=== PATIENT | female | born 1950 | race Caucasian/White ===

== ENCOUNTER → 2016-02-21 | Outpatient (CLI) | payer OTHER ==
[~2016-02-21] MED LIST: ALBU0.08 INH; ALEN1TAB48 PO; ALEN70TA39 PO; AMOX250S22 PO; AMOX875T PO; ASPI325T PO; ATEN-102 PO; ATOR20TA PO; ATOR20TA15 PO; BACT2OIN TOPICAL; BENT20TA PO; BUPR100CR PO; BUPR150CR PO; BUPR1TAB29 PO; CARB25TA9 PO; CEPH-460 PO; CHOL100025 CHEW; CULT10CA4 PO; CYAN1TAB24 PO; DICY20TA10 PO; DOCU1CAP39 PO; HALO2TAB PO; HYDR25TA5 PO; IPRASOL INH; LACT PO; LAMO100 PO; LAMO100T PO; LAMO200T PO; LEVO.075 PO; LEVO75TA3 PO; LISI10TA3 PO; LORA-392 PO; MACR100C2 PO; MELO-1 PO; MEMA28CA PO; METH500T3 PO; MUPI2OIN TOPICAL; NAME10TA PO; NUED20CA PO; PERC5TAB12 PO; PRED1 PO; PRED10 PO; PREM0.3T2 PO; PROBCAP11; PROM1SUP12 PR; QUET50XR PO; RELP40TA PO; SUMA100T2 PO; SYNT112T PO; VITA100018 PO; VITA10002 PO; VITATAB43 PO; ZOFR4TAB3 SL
[2016-02-21 15:09] LABS: BLOOD GAS BASE EXCESS 3.2 mmol/L (-2-2); BLOOD GAS CARBOXYHEMOGLOBIN 1.5 % (0-4); BLOOD GAS HCO3 27 mmol/L (22-26); BLOOD GAS METHEMOGLOBIN 0.8 % (0-2); BLOOD GAS O2 HGB SATURATION 96 % (90-100); BLOOD GAS OXYGEN CONTENT 21.5 Vol % (12.0-20.0); BLOOD GAS PCO2 42 mmHG (38-42); BLOOD GAS PO2 91 mmHG (61-120); CRITICAL VALUE NO; DRAW SITE LT RADIAL; FIO2 21 %; NUMBER OF ARTERIAL PUNCTURES 1; STAT NO; TEMP CORR TO 98.6; ULNAR PULSE PRESENT
== END ==
LOC: PHRSP 14:44
PROVIDERS: ATTEND Specialist
DX: E84.9 Cystic fibrosis, unspecified (principal); R79.0 Abnormal level of blood mineral; R79.81 Abnormal blood-gas level
CPT/HCPCS: 36600; 82805

== ENCOUNTER 2016-04-06 10:27 | Emergency (ER) | payer OTHER ==
[~2016-04-06] VITALS: Ht 167.6 cm; Wt 53.0 kg
[~2016-04-06 10:27] MED LIST changes: -ALBU0.08 INH; -ALEN1TAB48 PO; -AMOX250S22 PO; -ATOR20TA15 PO; -BACT2OIN TOPICAL; -BUPR150CR PO; -BUPR1TAB29 PO; -CARB25TA9 PO; -CEPH-460 PO; -CHOL100025 CHEW; -CULT10CA4 PO; -CYAN1TAB24 PO; -DICY20TA10 PO; -DOCU1CAP39 PO; -HALO2TAB PO; -HYDR25TA5 PO; -IPRASOL INH; -LACT PO; -LAMO100T PO; -LAMO200T PO; -LEVO.075 PO; -LEVO75TA3 PO; -LISI10TA3 PO; -LORA-392 PO; -MACR100C2 PO; -MELO-1 PO; -MEMA28CA PO; -MUPI2OIN TOPICAL; -NAME10TA PO; -NUED20CA PO; -PRED10 PO; -PROBCAP11; -RELP40TA PO; -SUMA100T2 PO; -VITA100018 PO; -VITA10002 PO; -VITATAB43 PO
[2016-04-06 10:39] VITALS: BP 139/95; PULSE 80; RESP 16; TEMP 97.7; O2SAT 96
[2016-04-06] MEDS ORDERED: ATOR20TA15 PO (11:07)
[2016-04-06] MEDS ORDERED: RELP40TA PO (11:07)
[2016-04-06] MEDS ORDERED: DICY20TA10 PO (11:07)
[2016-04-06] MEDS ORDERED: MEMA28CA PO (11:07)
[2016-04-06] MEDS ORDERED: VITATAB43 PO (11:07)
[2016-04-06] MEDS ORDERED: BUPR1TAB29 PO (11:07)
[2016-04-06] MEDS ORDERED: LAMO100T PO (11:07)
[2016-04-06] MEDS ORDERED: LEVO75TA3 PO (11:07)
[2016-04-06] MEDS ORDERED: MELO-1 PO (11:07)
[2016-04-06] MEDS ORDERED: SUMA100T2 PO (11:07)
[2016-04-06] MEDS ORDERED: CHOL100025 CHEW (11:07)
[2016-04-06] MEDS ORDERED: CARB25TA9 PO (11:07)
[2016-04-06] MEDS ORDERED: HYDR25TA5 PO (11:07)
[2016-04-06] MEDS ORDERED: ALEN1TAB48 PO (11:07)
--- NOTE | 2016-04-06 11:22 | PD ---
HPI Chief Complaint: Fall Time Seen by Provider: 11:06 Travel History International Travel<30 days: No Contact w/Intl Traveler<30days: No Traveled to known affect area: No History of Present Illness HPI The patient was seen and examined in the presence of the nurse. This patient complains of pain in the right hip. She fell on it last night when she actually rolled out of bed. She has Parkinson's and a poor gait in general. Symptoms severity is moderate. No alleviating factors. Duration is 8 hours. No head or neck injury PFSH Past Medical History Bipolar Disorder: Yes High Cholesterol: Yes Dementia: Yes Diminished Hearing: No Hypertension: Yes Thyroid Disease: Yes ?: Not Menopausal: Yes Tubal Ligation: Yes Past Surgical History Surgical History: No Previous Surgery Social History Alcohol Use: Yes (wine wtih dinner) Tobacco Use: No Substance Use: No Allergies-Medications (Allergen,Severity, Reaction): Coded Allergies: Sulfa (Unverified Allergy, Unknown, redness and swelling, 04/06/16) Reported Meds & Prescriptions Reported Meds & Active Scripts Active Reported Vitamin D3 (Cholecalciferol) 1,000 Unit Chew 1,000 Units CHEW DAILY Vitamin F82-Jrooy Acid (Cobalamine Combinations) 500-400 Mcg Tab 3 Tab PO DAILY Atorvastatin (Atorvastatin Calcium) 20 Mg Tab 20 Mg PO HS Bupropion HCl ER 12 HR (Bupropion HCl) 150 Mg Tab 150 Mg PO Q12HR Hydrochlorothiazide 25 Mg Tab 25 Mg PO DAILY Namenda Xr (Memantine) 28 Mg Caper 28 Mg PO DAILY Lamotrigine 100 Mg Tab 100 Mg PO BID Dicyclomine (Dicyclomine HCl) 20 Mg Tab 20 Mg PO TID Relpax (Eletriptan) 40 Mg Tab 40 Mg PO ONCE PRN Meloxicam 15 Mg Tab 15 Mg PO DAILY Carbidopa-Levodopa 25-100 Mg Tab 1 Tab PO Q8HR Sumatriptan (Sumatriptan Succinate) 100 Mg Tab 100 Mg PO ONCE PRN If a satisfactory response has not been obtained at 2 hours, a second dose may be administered Levothyroxine (Levothyroxine Sodium) 75 Mcg Tab 75 Mcg PO DAILY Alendronate (Alendronate Sodium) 70 Mg Tab 70 Mg PO Q7D Review of Systems General / Constitutional: No: Fever Eyes: No: Visual changes HENT: No: Headaches Cardiovascular: No: Chest Pain or Discomfort Respiratory: No: Shortness of Breath Gastrointestinal: No: Abdominal Pain Genitourinary: No: Dysuria Musculoskeletal: Positive: Pain Skin: No Rash Neurologic: Positive: Ataxia, No: Weakness Psychiatric: No: Depression Endocrine: No: Polydipsia Hematologic/Lymphatic: No: Easy Bruising Physical Exam Narrative GENERAL: Well-nourished, well-developed patient in no apparent distress. SKIN: Warm and dry. HEAD: Atraumatic. Normocephalic. EYES: Pupils equal and round. No scleral icterus. No injection or drainage. ENT: No nasal bleeding or discharge. Mucous membranes pink and moist. NECK: Trachea midline. No JVD. CARDIOVASCULAR: Regular rate and rhythm. No murmur appreciated. RESPIRATORY: No accessory muscle use. Clear to auscultation. Breath sounds equal bilaterally. GASTROINTESTINAL: Abdomen soft, non-tender, nondistended. Hepatic and splenic margins not palpable. MUSCULOSKELETAL: No obvious deformities. No clubbing. No cyanosis. No edema. Good range of motion of right hip. No bruising or swelling. Neurovascularly intact right leg NEUROLOGICAL: Awake and alert. No obvious cranial nerve deficits. Motor grossly within normal limits. Normal speech. PSYCHIATRIC: Appropriate mood and affect; insight and judgment normal. Data Data Last Documented VS Vital Signs Date Time Temp Pulse Resp B/P Pulse Ox O2 Delivery O2 Flow Rate FiO2 04/06/16 10:39 97.7 80 16 139/95 96 Orders Hip, Lat Only W Ap Pelvis (04/06/16 ) MDM Medical Decision Making Medical Screen Exam Complete: Yes Emergency Medical Condition: Yes Medical Record Reviewed: Yes Differential Diagnosis Pelvic fracture, contusion, hip dislocation Narrative Course I have reviewed the patient's electronic medical record. I reviewed her pelvis x-ray which is normal I reviewed her right hip x-ray which is normal Patient has contusion of the right side but no objective findings on x-ray or exam Stable for outpatient follow-up Advised her to use her walker and check in with primary care on Friday Diagnosis Primary Impression: Contusion of right hip, initial encounter Additional Instructions: The patient was advised to follow up with their physician and return if they worsen. Use walker Med/Other Pt SpecificInfo: Other Disposition: DISCHARGE HOME Condition: Stable Last Grigsby MD Apr 06, 2016 11:22
--- NOTE | 2016-04-06 12:49 | RADHPO ---
EXAM DATE/TIME: 04/06/2016 11:23 [facility] COMPARISON: No previous studies available for comparison. INDICATIONS : Right hip pain from fall. MEDICAL HISTORY : Dementia. SURGICAL HISTORY : None. ENCOUNTER: Initial ACUITY: 1 day PAIN SCORE: 7/10 LOCATION: anterior right hip. FINDINGS: AP view of the pelvis. Lateral view right hip. Bone alignment within normal limits. No evidence of f racture. CONCLUSION: No evidence of fracture. Sheldon Dey MD on April 06, 2016 at 12:47 Board Certified Radiologist. This report was verified electronically.
[2016-04-06 13:03] VITALS: BP 137/78
== END 2016-04-06 13:17 | disposition home or self-care (01) ==
LOC: PHED 10:27
DX: S70.01XA Contusion of right hip, initial encounter (principal); W06.XXXA Fall from bed, initial encounter
CPT/HCPCS: 73501; 99283

== ENCOUNTER 2016-06-09 19:14 | Emergency (ER) | payer OTHER ==
[~2016-06-09] VITALS: Ht 167.6 cm; Wt 51.0 kg
[~2016-06-09 19:14] MED LIST changes: +ALEN1TAB48 PO; -ALEN70TA39 PO; -AMOX875T PO; -ASPI325T PO; -ATEN-102 PO; -ATOR20TA PO; +ATOR20TA15 PO; -BENT20TA PO; -BUPR100CR PO; +BUPR1TAB29 PO; +CARB25TA9 PO; +CHOL100025 CHEW; +DICY20TA10 PO; +HYDR25TA5 PO; -LAMO100 PO; +LAMO100T PO; +LEVO75TA3 PO; +MELO-1 PO; +MEMA28CA PO; -METH500T3 PO; -PERC5TAB12 PO; -PRED1 PO; -PREM0.3T2 PO; -PROM1SUP12 PR; -QUET50XR PO; +RELP40TA PO; +SUMA100T2 PO; -SYNT112T PO; +VITATAB43 PO; -ZOFR4TAB3 SL
[2016-06-09 19:33] VITALS: BP 142/87; PULSE 77; RESP 18; TEMP 97.7; O2SAT 98
[2016-06-09] MEDS ORDERED: TETANUS/DIPHTHERIA TOXOID ADULT 0.5 ML VIAL IM ONE (20:00)
--- NOTE | 2016-06-09 20:39 | RADHPO ---
EXAM DATE/TIME: 06/09/2016 20:16 [facility] COMPARISON: No previous studies available for comparison. INDICATIONS : Left hand pain, laceration from fall. MEDICAL HISTORY : None. SURGICAL HISTORY : None. ENCOUNTER: Initial ACUITY: 1 day PAIN SCORE: 9/10 LOCATION: Left posterior hand. FINDINGS: No definite fractures, or dislocations are identified. No definite lytic or sclerotic lesion is seen . Slight osteopenia is seen. Slight degenerative arthritis is present within multiple interphalangea l joints. CONCLUSION: Chronic changes and no evidence for acute fracture. Bev Navarro MD on June 09, 2016 at 20:37 Board Certified Radiologist. This report was verified electronically.
--- NOTE | 2016-06-09 20:40 | PD ---
HPI Chief Complaint: Laceration/Skin Injury Time Seen by Provider: 20:34 Travel History International Travel<30 days: No Contact w/Intl Traveler<30days: No Traveled to known affect area: No History of Present Illness HPI 66-year-old female that presents to the ED for evaluation of injury to her left arm. Patient had a mechanical fall about an hour before coming. Patient has a history of dementia and has chronic falls. She did not hit her head or lose consciousness. Fall was witnessed by family member who is here with her. She did suffer a laceration to the dorsal aspect of the hand and has a lot of bruising and swelling in the area. Family were not too concerned except for the laceration as there weren't sure what to do for it. She denies any pain other than on the hand. She takes no blood thinners. No back or neck pain. Ambulatory with no sign of discomfort. She does have a bruise to her left elbow but she is able to the forearm with no sign of acute disease. Patient denies any numbness, tilling, weakness. Pain is 2 out of 10. Unclear if she is up-to-date with her tetanus. Allergies to sulfa. Laceration is to the dorsal aspect of the left hand. PFSH Past Medical History Bipolar Disorder: Yes High Cholesterol: Yes Dementia: Yes Diminished Hearing: No Hypertension: Yes Thyroid Disease: Yes Tetanus Vaccination: Unknown Influenza Vaccination: Yes ?: Not Menopausal: Yes Tubal Ligation: Yes Social History Alcohol Use: Yes (wine wtih dinner) Tobacco Use: No Substance Use: No Allergies-Medications (Allergen,Severity, Reaction): Coded Allergies: Sulfa (Unverified Allergy, Unknown, redness and swelling, 04/06/16) Reported Meds & Prescriptions Reported Meds & Active Scripts Active Reported Vitamin D3 (Cholecalciferol) 1,000 Unit Chew 1,000 Units CHEW DAILY Vitamin Q85-Vwtpd Acid (Cobalamine Combinations) 500-400 Mcg Tab 3 Tab PO DAILY Atorvastatin (Atorvastatin Calcium) 20 Mg Tab 20 Mg PO HS Bupropion HCl ER 12 HR (Bupropion HCl) 150 Mg Tab 150 Mg PO Q12HR Hydrochlorothiazide 25 Mg Tab 25 Mg PO DAILY Namenda Xr (Memantine) 28 Mg Caper 28 Mg PO DAILY Lamotrigine 100 Mg Tab 100 Mg PO BID Dicyclomine (Dicyclomine HCl) 20 Mg Tab 20 Mg PO TID Relpax (Eletriptan) 40 Mg Tab 40 Mg PO ONCE PRN Meloxicam 15 Mg Tab 15 Mg PO DAILY Carbidopa-Levodopa 25-100 Mg Tab 1 Tab PO Q8HR Sumatriptan (Sumatriptan Succinate) 100 Mg Tab 100 Mg PO ONCE PRN If a satisfactory response has not been obtained at 2 hours, a second dose may be administered Levothyroxine (Levothyroxine Sodium) 75 Mcg Tab 75 Mcg PO DAILY Alendronate (Alendronate Sodium) 70 Mg Tab 70 Mg PO Q7D Review of Systems Except as stated in HPI: all other systems reviewed are Neg Physical Exam Narrative GENERAL: SKIN: Warm and dry. HEAD: Atraumatic. Normocephalic. EYES: Pupils equal and round. No scleral icterus. No injection or drainage. ENT: No nasal bleeding or discharge. Mucous membranes pink and moist. Tongue is midline. No uvula deviation. NECK: Trachea midline. No JVD. CARDIOVASCULAR: Regular rate and rhythm. No murmurs, S3, S4. RESPIRATORY: No accessory muscle use. Clear to auscultation. Breath sounds equal bilaterally. GASTROINTESTINAL: Abdomen soft, non-tender, nondistended. Hepatic and splenic margins not palpable. MUSCULOSKELETAL: Extremities without clubbing, cyanosis, or edema. No obvious deformities. No cervical, thoracic, lumbar spine tenderness to palpation. Patient has full range of motion of the upper and lower extremities bilaterally. Patient has full range of motion of the left hand with no obvious deformity other than laceration to the dorsal aspect of the hand. Patient has what appears to be a partial skin avulsion about 5 cm in length. Skin still attached but skin is extremely thin. Minimal bleeding noted. Slightly tender to touch. Good capillary refill. 2+ pulses bilaterally. NEUROLOGICAL: Awake and alert. No obvious cranial nerve deficits. Motor grossly within normal limits. Five out of 5 muscle strength in the arms and legs. Normal speech. PSYCHIATRIC: Appropriate mood and affect; insight and judgment normal. Data Data Last Documented VS Vital Signs Date Time Temp Pulse Resp B/P Pulse Ox O2 Delivery O2 Flow Rate FiO2 06/09/16 19:51 77 18 06/09/16 19:33 97.7 142/87 98 Orders Hand, Complete (Opu5tth) (06/09/16 19:55) Wound Care (06/09/16 19:55) Tetanus/Diphtheria Tox Adult (Tetanus/Di (06/09/16 20:00) MDM Medical Decision Making Medical Screen Exam Complete: Yes Emergency Medical Condition: Yes Medical Record Reviewed: Yes Interpretation(s) X-ray of the left hand show no sign of acute injury. Differential Diagnosis Laceration versus fracture versus bony injury versus contusion Narrative Course 66-year-old female that presents to the ED for evaluation of left hand injury. Patient was properly examined and was found to have signs and symptoms consistent with a skin avulsion. I recommend x-ray and wound care. Family and patient agree. Unfortunately patient's skin is too thin to do stitches. I do recommend wound care with Steri-Strips by altitude chamber technician. Patient is in agreement with this plan. Patient was told to follow to change dressings daily. Patient will be sent home with prescription for Bactroban as well as Keflex to rule out infection. X-ray was negative for acute disease. Patient was reassured. Close follow with PCP. Tylenol or Motrin as needed. Ice. See ED worsening symptoms. Watch for signs of infection was endorsed. Diagnosis Primary Impression: Laceration of left hand Qualified Code: S61.412A - Laceration of left hand without foreign body, initial encounter Additional Impression: Fall Qualified Code: W19.XXXA - Fall, initial encounter Patient Instructions: General Instructions Additional Instructions: Wound care daily with soap and water. You can apply bandaid if needed. Neosporyn or OTC antibiotic ointment to area as needed twice a day for at least 2 weeks to help with scarring and prevent infection. Meoderma OTC for scarring if needed. Avoid sun exposure for 2 months as the sun could make scar darker and more noticeable. Steri-Strips should come off in about a week, keep it them until they fall on their own. Remove if they been there longer than two weeks. See ED if worst. Med/Other Pt SpecificInfo: Prescription(s) given Disposition: 01 DISCHARGE HOME Condition: Stable Ignacio Lane Jun 09, 2016 20:40
[2016-06-09] MEDS ORDERED: CEPH-460 PO (20:41)
[2016-06-09] MEDS ORDERED: BACT2OIN TOPICAL (20:41)
== END 2016-06-09 20:58 | disposition home or self-care (01) ==
LOC: PHEFT 19:14
DX: S61.412A Laceration without foreign body of left hand, initial encounter (principal); F31.9 Bipolar disorder, unspecified; E78.00 Pure hypercholesterolemia, unspecified; F03.90 Unspecified dementia, unspecified severity, without behavioral disturbance, psychotic disturbance, mood disturbance, and anxiety; I10 Essential (primary) hypertension; Z91.81 History of falling; Z23 Encounter for immunization; W18.30XA Fall on same level, unspecified, initial encounter; Y93.9 Activity, unspecified; Y92.9 Unspecified place or not applicable; Y99.9 Unspecified external cause status
CPT/HCPCS: 73130; 90471; 90714

== ENCOUNTER 2016-06-16 14:27 | Emergency (ER) | payer OTHER ==
[~2016-06-16] VITALS: Ht 167.6 cm; Wt 52.0 kg
[~2016-06-16 14:27] MED LIST changes: +BACT2OIN TOPICAL; +CEPH-460 PO
[2016-06-16 14:36] VITALS: BP 110/70; PULSE 89; RESP 17; TEMP 98; O2SAT 100
[2016-06-16] MEDS ORDERED: LORA-392 PO (15:43)
[2016-06-16] MEDS ORDERED: HALO2TAB PO (15:43)
--- NOTE | 2016-06-16 15:48 | PD ---
HPI Chief Complaint: Anxiety Time Seen by Provider: 15:41 Travel History International Travel<30 days: No Contact w/Intl Traveler<30days: No Traveled to known affect area: No History of Present Illness HPI This 66-year-old female is accompanied by her and daughter. She has a history of dementia which has been progressive. The family is trying to get her placed in a locked facility because she has become somewhat agitated recently. She has been wandering at times threatening to walk off. She is not very cooperative at home. She does not always take her medication. She previously had a history of bipolar disorder. She is a patient with Dr. Evangelista. She is not sleeping at night. The family is requesting medication to try to sedate her so he does not wander off. She was here a few days ago for skin tear from fall. She does fall quite often PFSH Past Medical History Alzheimer's Disease: Yes Bipolar Disorder: Yes High Cholesterol: Yes Dementia: Yes Diminished Hearing: No Hypertension: Yes Thyroid Disease: Yes Tetanus Vaccination: < 5 Years Influenza Vaccination: Yes ?: Not Menopausal: Yes Tubal Ligation: Yes Social History Alcohol Use: Yes (wine wtih dinner) Tobacco Use: No Substance Use: No Allergies-Medications (Allergen,Severity, Reaction): Coded Allergies: Sulfa (Unverified Allergy, Unknown, redness and swelling, 06/16/16) Reported Meds & Prescriptions Reported Meds & Active Scripts Active Haloperidol 2 Mg Tab 2 Mg PO BID Ativan (Lorazepam) 0.5 Mg Tab 0.5 Mg PO Q4H PRN Bactroban Topical (Mupirocin) 2% Oint 1 Appl TOPICAL BID 14 Days Reported Vitamin D3 (Cholecalciferol) 1,000 Unit Chew 1,000 Units CHEW DAILY Vitamin Q02-Aamfk Acid (Cobalamine Combinations) 500-400 Mcg Tab 3 Tab PO DAILY Atorvastatin (Atorvastatin Calcium) 20 Mg Tab 20 Mg PO HS Bupropion HCl ER 12 HR (Bupropion HCl) 150 Mg Tab 150 Mg PO Q12HR Hydrochlorothiazide 25 Mg Tab 25 Mg PO DAILY Namenda Xr (Memantine) 28 Mg Caper 28 Mg PO DAILY Lamotrigine 100 Mg Tab 100 Mg PO BID Dicyclomine (Dicyclomine HCl) 20 Mg Tab 20 Mg PO TID Relpax (Eletriptan) 40 Mg Tab 40 Mg PO ONCE PRN Meloxicam 15 Mg Tab 15 Mg PO DAILY Carbidopa-Levodopa 25-100 Mg Tab 1 Tab PO Q8HR Sumatriptan (Sumatriptan Succinate) 100 Mg Tab 100 Mg PO ONCE PRN If a satisfactory response has not been obtained at 2 hours, a second dose may be administered Levothyroxine (Levothyroxine Sodium) 75 Mcg Tab 75 Mcg PO DAILY Alendronate (Alendronate Sodium) 70 Mg Tab 70 Mg PO Q7D Review of Systems General / Constitutional: No: Fever, Chills Cardiovascular: No: Chest Pain or Discomfort Gastrointestinal: No: Vomiting Musculoskeletal: No: Myalgias Physical Exam Narrative GENERAL: Very pleasant lady cooperative at this time SKIN: Focused skin assessment warm/dry. HEAD: Atraumatic. Normocephalic. EYES: Pupils equal and round. No scleral icterus. No injection or drainage. ENT: No nasal bleeding or discharge. Mucous membranes pink and moist. NECK: Trachea midline. No JVD. CARDIOVASCULAR: Regular rate and rhythm. No murmur appreciated. RESPIRATORY: No accessory muscle use. Clear to auscultation. Breath sounds equal bilaterally. MUSCULOSKELETAL: No obvious deformities. No clubbing. No cyanosis. No edema. NEUROLOGICAL: Awake and alert. No obvious cranial nerve deficits. Motor grossly within normal limits. Normal speech. There is a wound on her left hand skin tear on the left elbow which is healing well. She is quite confused Data Data Last Documented VS Vital Signs Date Time Temp Pulse Resp B/P Pulse Ox O2 Delivery O2 Flow Rate FiO2 06/16/16 14:36 98.0 89 17 110/70 100 MDM Medical Decision Making Medical Screen Exam Complete: Yes Emergency Medical Condition: Yes Medical Record Reviewed: Yes Differential Diagnosis Differential includes dementia, dementia with agitation Narrative Course Have discussed possibilities with the and his daughter who were with him. I have explained to them that the response to sedative medications is not predictable. The daughter actually is a nurse practitioner who works with elderly patients and understands this. I have offered to admit the patient to the psychiatric yu but they do not want this at this time and wished to try medications first. Diagnosis Primary Impression: Dementia Scripts Haloperidol 2 Mg Tab2 Mg PO BID #10 TAB Ref 0 Prov:Toni Johnson MD 06/16/16 Lorazepam (Ativan)0.5 Mg Tab0.5 Mg PO Q4H PRN (For mild anxiety / dyspnea) #15 TAB Ref 0 Prov:Toni Johnson MD 06/16/16 Disposition: 01 DISCHARGE HOME Condition: Stable Toni Johnson MD June 16, 2016 15:48
== END 2016-06-16 16:03 | disposition home or self-care (01) ==
LOC: PHED 14:27
DX: G30.9 Alzheimer's disease, unspecified (principal); E78.00 Pure hypercholesterolemia, unspecified; I10 Essential (primary) hypertension
CPT/HCPCS: 99283

== ENCOUNTER 2016-06-18 12:39 | Inpatient (IN) | payer OTHER, MEDICARE ==
[~2016-06-18] VITALS: Ht 167.6 cm; Wt 47.9 kg
[~2016-06-18 12:39] MED LIST changes: -CEPH-460 PO; +HALO2TAB PO; +LORA-392 PO
[2016-06-18 12:41] VITALS: BP 165/82; PULSE 89; RESP 17; TEMP 97.8; O2SAT 98
--- NOTE | 2016-06-18 13:11 | PD ---
HPI Chief Complaint: Medical Clearance Time Seen by Provider: 13:06 Travel History International Travel<30 days: No Contact w/Intl Traveler<30days: No Traveled to known affect area: No History of Present Illness HPI Patient comes in with family requesting placement in assisted living facility secondary to worsening dementia over the past 2 months. Patient family reports that patient has been intermittently compliant with her regular medications, becoming more combative at home, and trying to wander off. Patient was seen at [facility] 2 days ago for same was offered admission to psychiatric yu at that time her family refuses and wanted to try medication first. Medication has not been helping per family history to get primary care doctor to follow-up [id number] performed for placement, but per family patient's primary care doctor refuses this. They tried getting patient's neurologist and was told it was up to the primary care provider. Patient was then brought back to the emergency department for possible admission or assistance in getting the patient placed. Patient denies any complaints or concerns. Denies any chest pain, shortness of breath, vomiting, or fevers. PFSH Past Medical History Alzheimer's Disease: Yes Bipolar Disorder: Yes High Cholesterol: Yes Dementia: Yes Diminished Hearing: No Hypertension: Yes Thyroid Disease: Yes ?: Not Menopausal: Yes Tubal Ligation: Yes Social History Alcohol Use: Yes (wine wtih dinner) Tobacco Use: No Substance Use: No Allergies-Medications (Allergen,Severity, Reaction): Coded Allergies: Sulfa (Unverified Allergy, Unknown, redness and swelling, 06/16/16) Reported Meds & Prescriptions Reported Meds & Active Scripts Active Ativan (Lorazepam) 0.5 Mg Tab 0.5 Mg PO Q4H PRN Bactroban Topical (Mupirocin) 2% Oint 1 Appl TOPICAL BID 14 Days Reported Culturelle (Lactobacillus Rhamnosus (GG)) 10 B Cell Cap 1 Cap PO DAILY Nuedexta 20-10 mg (Dextromethorphan HBr-Quinidine) 1 Cap Cap 1 Cap PO BID B12 (Cyanocobalamin) 1,000 Mcg Tab 1,500 Mcg PO DAILY Lamotrigine 200 Mg Tab 200 Mg PO BID Vitamin D3 (Cholecalciferol) 1,000 Unit Chew 1,000 Units CHEW DAILY Atorvastatin (Atorvastatin Calcium) 20 Mg Tab 20 Mg PO HS Bupropion HCl ER 12 HR (Bupropion HCl) 150 Mg Tab 300 Mg PO DAILY Hydrochlorothiazide 25 Mg Tab 25 Mg PO DAILY Namenda Xr (Memantine) 28 Mg Caper 28 Mg PO DAILY Relpax (Eletriptan) 40 Mg Tab 40 Mg PO ONCE PRN Meloxicam 15 Mg Tab 15 Mg PO DAILY PRN Carbidopa-Levodopa 25-100 Mg Tab 1 Tab PO Q8HR Sumatriptan (Sumatriptan Succinate) 100 Mg Tab 100 Mg PO ONCE PRN If a satisfactory response has not been obtained at 2 hours, a second dose may be administered Levothyroxine (Levothyroxine Sodium) 75 Mcg Tab 75 Mcg PO DAILY Alendronate (Alendronate Sodium) 70 Mg Tab 70 Mg PO Q7D ON MONDAYS Review of Systems Except as stated in HPI: all other systems reviewed are Neg Physical Exam Narrative GENERAL: Well-developed, well nourished, in no acute distress, and non-ill appearing. SKIN: Focused skin assessment warm and dry. HEAD: Atraumatic. Normocephalic. EYES: Pupils equal and round. EOMI. No scleral icterus. No injection or drainage. ENT: No nasal bleeding or discharge. Mucous membranes pink and moist. NECK: Trachea midline. Supple. No nuclear rigidity. CARDIOVASCULAR: Regular rate and rhythm. No murmur appreciated. RESPIRATORY: No accessory muscle use. No respiratory distress. Clear to auscultation. Breath sounds equal bilaterally. GASTROINTESTINAL: Abdomen soft, non-tender, nondistended. Hepatic and splenic margins not palpable. No pulsatile mass. MUSCULOSKELETAL: No obvious deformities. No clubbing. No cyanosis. No edema. Full range of motion. NEUROLOGICAL: Awake and alert. No obvious cranial nerve deficits. Motor grossly within normal limits. Normal speech. Data Data Last Documented VS Vital Signs Date Time Temp Pulse Resp B/P Pulse Ox O2 Delivery O2 Flow Rate FiO2 06/18/16 14:30 98 Room Air 06/18/16 12:41 97.8 89 17 165/82 Orders Basic Metabolic Panel (Bmp) (06/18/16 13:05) Complete Blood Count With Diff (06/18/16 13:05) Urinalysis - C+S If Indicated (06/18/16 13:05) Chest, Single Ap (06/18/16 13:05) Blood Glucose (06/18/16 13:05) Ecg Monitoring (06/18/16 13:05) Iv Access Insert/Monitor (06/18/16 13:05) Oximetry (06/18/16 13:05) Sodium Chloride 0.9% Flush (Ns Flush) (06/18/16 13:15) Urine Culture (06/18/16 14:00) Psych Screen (06/18/16 15:06) Labs Laboratory Tests Test 06/18/16 06/18/16 06/18/16 13:10 14:00 16:55 White Blood Count 7.8 TH/MM3 Red Blood Count 4.91 MIL/MM3 Hemoglobin 14.4 GM/DL Hematocrit 42.9 % Mean Corpuscular Volume 87.5 FL Mean Corpuscular Hemoglobin 29.3 PG Mean Corpuscular Hemoglobin 33.5 % Concent Red Cell Distribution Width 13.7 % Platelet Count 232 TH/MM3 Mean Platelet Volume 9.0 FL Neutrophils (%) (Auto) 77.0 % Lymphocytes (%) (Auto) 16.8 % Monocytes (%) (Auto) 5.3 % Eosinophils (%) (Auto) 0.3 % Basophils (%) (Auto) 0.6 % Neutrophils # (Auto) 6.0 TH/MM3 Lymphocytes # (Auto) 1.3 TH/MM3 Monocytes # (Auto) 0.4 TH/MM3 Eosinophils # (Auto) 0.0 TH/MM3 Basophils # (Auto) 0.0 TH/MM3 CBC Comment DIFF FINAL Differential Comment Urine Color YELLOW Urine Turbidity CLEAR Urine pH 6.5 Urine Specific [place] 1.013 Urine Protein NEG mg/dL Urine Glucose (UA) NEG mg/dL Urine Ketones NEG mg/dL Urine Occult Blood NEG Urine Nitrite NEG Urine Bilirubin NEG Urine Urobilinogen LESS THAN 2.0 MG/DL Urine Leukocyte Esterase NEG Urine RBC LESS THAN 1 /hpf Urine WBC 1 /hpf Urine Squamous Epithelial <1 /hpf Cells Urine Bacteria RARE /hpf Urine Mucus FEW /lpf Microscopic Urinalysis Comment CATH-CULTURE IND Sodium Level 140 MEQ/L Potassium Level 3.7 MEQ/L Chloride Level 105 MEQ/L Carbon Dioxide Level 29.4 MEQ/L Anion Gap 6 MEQ/L Blood Urea Nitrogen 13 MG/DL Creatinine 0.76 MG/DL Estimat Glomerular Filtration 76 ML/MIN Rate Random Glucose 134 MG/DL Calcium Level 9.2 MG/DL [facility] Medical Decision Making Medical Screen Exam Complete: Yes Emergency Medical Condition: Yes Differential Diagnosis Dementia, electrolyte abnormality, pneumonia, UTI, other Narrative Course 1310 discussed patient with case management who is going to look into possible placement of patient if medically cleared. Patient was seen and examined. Labs were obtained and reviewed. Patient medically cleared for further treatment and evaluation by psych. Final disposition per psych. 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
[2016-06-18] MEDS ORDERED: SODIUM CHLORIDE 0.9% FLUSH 10 ML FLUSH IVF PRN (13:15)
[2016-06-18 13:45] LABS: BASOPHIL % 0.6 % (0.0-2.0); EOSINOPHIL % 0.3 % (0.0-4.0); HEMATOCRIT 42.9 % (35.0-46.0); HEMO FLAGS DIFF FINAL; LYMPH % 16.8 % (9.0-44.0); LYMPHOCYTE # 1.3 TH/MM3 (1.0-4.8); MEAN CELL VOLUME 87.5 FL (80.0-100.0); MEAN CORPUSCULAR HEMOGLOBIN 29.3 PG (27.0-34.0); MEAN CORPUSCULAR HGB CONC 33.5 % (32.0-36.0); MONO % 5.3 % (0.0-8.0); PLATELET COUNT 232 TH/MM3 (150-450); RED BLOOD COUNT 4.91 MIL/MM3 (4.00-5.30); RED CELL DISTRIBUTION WIDTH 13.7 % (11.6-17.2); WHITE BLOOD COUNT 7.8 TH/MM3 (4.0-11.0)
--- NOTE | 2016-06-18 13:45 | RADRPT ---
EXAM DATE/TIME: 06/18/2016 13:40 [facility] COMPARISON: No previous studies available for comparison. INDICATIONS : General weakness. MEDICAL HISTORY : Hypertension. SURGICAL HISTORY : None. ENCOUNTER: Initial ACUITY: 1 day PAIN SCORE: 0/10 LOCATION: Bilateral chest FINDINGS: Single AP view of the chest. The lungs are clear. Cardiomediastinal silhouette within normal limits. No evidence of pleural effusion or pneumothorax. CONCLUSION: No acute cardiopulmonary disease identified. Sheldon Dey MD on June 18, 2016 at 13:42 Board Certified Radiologist. This report was verified electronically.
[2016-06-18 14:00] VITALS: BP 135/74; PULSE 98; RESP 16; O2SAT 98
[2016-06-18 14:22] LABS: BACTERIA, URINE RARE /hpf; BLOOD, URINE NEG (NEG); COMMENT (UR) CATH-CULTURE IND; CULTURE IF INDICATED CATH CULTURE IND; GLUCOSE,URINE NEG (NEG); KETONE, URINE NEG (NEG); MUCUS URINE FEW /lpf (OCC); NITRITE,URINE NEG (NEG); PH, URINE 6.5 (5.0-8.5); SQUAMOUS EPITHELIAL CELL URINE <1 /hpf (0-5); URINE COLOR YELLOW (YELLW/STRAW)
[2016-06-18 14:30] VITALS: O2SAT 98
[2016-06-18] MEDS ORDERED: CYAN1TAB24 PO (16:17)
[2016-06-18] MEDS ORDERED: LAMO200T PO (16:17)
[2016-06-18] MEDS ORDERED: PROBCAP11 (16:23)
[2016-06-18] MEDS ORDERED: CULT10CA4 PO (16:23)
[2016-06-18] MEDS ORDERED: NUED20CA PO (16:23)
--- NOTE | 2016-06-18 16:59 | PD ---
History of Present Illness Chief Complaint: Medical Clearance Time Seen by Provider: 15:20 Travel History International Travel<30 Days: No Contact w/Intl Traveler<30days: No Known affected area: No History of Present Illness: History of Present Illness HPI Patient is a 66 year old female with history of dementia and bipolar disorder who is brought to ED by her and her daughter. The who is the primary park recreation manager reports that the patient has had an increase in behaviors over the past 2 weeks. She has been more agitated as well as has been wandering and attempting to get out of the house. Patient was seen at [facility] 2 days ago for same behaviors and concerns and they were offered admission to psychiatric yu at that time but the family refused and wanted to try to continue to care for her at home with medication. They tried the medication Ativan and Haldol which was prescribed at [facility] but this was ineffective.Last night the patient did not sleep, was wandering around the house , told the she will go out the balcony ( they live on a fourth floor) as well as told him that she was looking for a knife. At this time the does not feel safe taking the patient home. The family have secured a placement for her at a local facility but the facility has recommended that she come to [facility] to be stabilized on medication prior to being admitted there. The patient is seen in main ED. Awake and alert. Ambulating around the ed room. She is oriented to her name only. She depends on her as her working memory to answer the questions. She does not appear to be responding to internal stimuli. At this time she is not agitated. She admits to feeling sad over not being able to communicate. In terms of previous hx the reports that she was dx w bipolar disorder approximately 40 years ago and has had previous psychiatric hospitalizations. Past treatmetn w ECT She is currently on Wellbutrin and Lamotrigine.. Family deny any history of substance use. PFSH Past Medical History Alzheimer's Disease: Yes Bipolar Disorder: Yes High Cholesterol: Yes Dementia: Yes Diminished Hearing: No Hypertension: Yes Thyroid Disease: Yes ?: Not Menopausal: Yes Tubal Ligation: Yes Psychiatric History Psychiatric History Hx Psychiatric Treatment: Dx w Bipolar Disorder 40 years ago History of Inpatient Treatment: Yes Guns or firearms in home: No Social History x 46 years. Lives with . retired . Worked in car sales. Hx Alcohol Use: Yes (wine wtih dinner) Hx Tobacco Use: No Hx Substance Use: No Hx of Substance Use Treatment: No Family Psychiatric History unknown Allergies-Medications (Allergen,Severity, Reaction): Coded Allergies: Sulfa (Unverified Allergy, Unknown, redness and swelling, 06/16/16) Reported Meds & Prescriptions Reported Meds & Active Scripts Active Ativan (Lorazepam) 0.5 Mg Tab 0.5 Mg PO Q4H PRN Bactroban Topical (Mupirocin) 2% Oint 1 Appl TOPICAL BID 14 Days Reported Culturelle (Lactobacillus Rhamnosus (GG)) 10 B Cell Cap 1 Cap PO DAILY Nuedexta 20-10 mg (Dextromethorphan HBr-Quinidine) 1 Cap Cap 1 Cap PO BID B12 (Cyanocobalamin) 1,000 Mcg Tab 1,500 Mcg PO DAILY Lamotrigine 200 Mg Tab 200 Mg PO BID Vitamin D3 (Cholecalciferol) 1,000 Unit Chew 1,000 Units CHEW DAILY Atorvastatin (Atorvastatin Calcium) 20 Mg Tab 20 Mg PO HS Bupropion HCl ER 12 HR (Bupropion HCl) 150 Mg Tab 300 Mg PO DAILY Hydrochlorothiazide 25 Mg Tab 25 Mg PO DAILY Namenda Xr (Memantine) 28 Mg Caper 28 Mg PO DAILY Relpax (Eletriptan) 40 Mg Tab 40 Mg PO ONCE PRN Meloxicam 15 Mg Tab 15 Mg PO DAILY PRN Carbidopa-Levodopa 25-100 Mg Tab 1 Tab PO Q8HR Sumatriptan (Sumatriptan Succinate) 100 Mg Tab 100 Mg PO ONCE PRN If a satisfactory response has not been obtained at 2 hours, a second dose may be administered Levothyroxine (Levothyroxine Sodium) 75 Mcg Tab 75 Mcg PO DAILY Alendronate (Alendronate Sodium) 70 Mg Tab 70 Mg PO Q7D ON MONDAYS Review of Systems ROS Limitations: Clinical Condition (dementia) Exam Alert: Yes [place]: Person (only) Mood: Anxious Affect: Appropriate Speech: Clear (Dificulty with word finding.) Eye Contact: Indirect Memory Intact: Comment (impaired) Hallucinations: Other (neagtive) Suicidal: Ideation (negative) Homicidal: Ideation (negative) Insight/Judgement poor. impaired. MDM Medical Decision Making Medical Record Reviewed: Yes Assessment/Plan 66 year old female with hx of bipolar disorder and dementia with increase in behaviors in the past 2 weeks including agitation, wandering, decrease sleep, asking for a knife and threatening to leave the home. The family at this time feel unsafe if she were to be discharged home and have secured a placement for her. However the facility has recommended that she be admitted in order to adjust her medications , decrease the level of agitation and to maintain her safety. The patient will be admitted to [facility] once she is medically cleared. Orders Basic Metabolic Panel (Bmp) (06/18/16 13:05) Complete Blood Count With Diff (06/18/16 13:05) Urinalysis - C+S If Indicated (06/18/16 13:05) Chest, Single Ap (06/18/16 13:05) Blood Glucose (06/18/16 13:05) Ecg Monitoring (06/18/16 13:05) Iv Access Insert/Monitor (06/18/16 13:05) Oximetry (06/18/16 13:05) Sodium Chloride 0.9% Flush (Ns Flush) (06/18/16 13:15) Urine Culture (06/18/16 14:00) Psych Screen (06/18/16 15:06) Results Vital Signs Date Time Temp Pulse Resp B/P Pulse Ox O2 Delivery O2 Flow Rate FiO2 06/18/16 14:30 98 Room Air 06/18/16 12:41 97.8 89 17 165/82 98 Laboratory Tests Test 06/18/16 06/18/16 13:10 14:00 White Blood Count 7.8 Red Blood Count 4.91 Hemoglobin 14.4 Hematocrit 42.9 Mean Corpuscular Volume 87.5 Mean Corpuscular Hemoglobin 29.3 Mean Corpuscular Hemoglobin 33.5 Concent Red Cell Distribution Width 13.7 Platelet Count 232 Mean Platelet Volume 9.0 Neutrophils (%) (Auto) 77.0 Lymphocytes (%) (Auto) 16.8 Monocytes (%) (Auto) 5.3 Eosinophils (%) (Auto) 0.3 Basophils (%) (Auto) 0.6 Neutrophils # (Auto) 6.0 Lymphocytes # (Auto) 1.3 Monocytes # (Auto) 0.4 Eosinophils # (Auto) 0.0 Basophils # (Auto) 0.0 CBC Comment DIFF FINAL Differential Comment Urine Color YELLOW Urine Turbidity CLEAR Urine pH 6.5 Urine Specific [place] 1.013 Urine Protein NEG Urine Glucose (UA) NEG Urine Ketones NEG Urine Occult Blood NEG Urine Nitrite NEG Urine Bilirubin NEG Urine Urobilinogen LESS THAN 2.0 Urine Leukocyte Esterase NEG Urine RBC LESS THAN 1 Urine WBC 1 Urine Squamous Epithelial <1 Cells Urine Bacteria RARE Urine Mucus FEW Microscopic Urinalysis Comment CATH-CULTURE IND Date/Time Procedure Status Source Growth 06/18/16 14:00 Urine Culture Received Urine Catheterized Urine Pending Diagnosis Primary Impression: Dementia Additional Impression: Bipolar disorder Admitting Information Admitting Physician Requests: Admit (Dr. 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
[2016-06-18 17:34] LABS: BICARBONATE 29.4 MEQ/L (21.0-32.0); POTASSIUM 3.7 MEQ/L (3.5-5.1)
[2016-06-18 18:00] VITALS: BP 159/78; PULSE 86; RESP 16; TEMP 98.4; O2SAT 98
[2016-06-18] MEDS ORDERED: ALUMINUM/MAGNESIUM/SIMETH 30 ML CUP PO PRN (19:15)
[2016-06-18] MEDS ORDERED: ACETAMINOPHEN 325 MG TAB PO PRN (19:15)
[2016-06-18] MEDS ORDERED: MAGNESIUM HYDROXIDE SUSP 30 ML CUP PO PRN (19:15)
[2016-06-18 19:20] VITALS: BP 153/94; PULSE 80; RESP 18
[2016-06-19 05:55] VITALS: BP 134/80; PULSE 97; RESP 18; TEMP 98.2
[2016-06-19 08:02] LABS: HDL CHOLESTEROL 78.8 MG/DL (40.0-60.0); LDL CHOLESTEROL 97 MG/DL (0-99)
[2016-06-19 12:42] LABS: HEMOGLOBIN A1b 1.4 %; HEMOGLOBIN Ao 86.7 %; HEMOGLOBIN LA1C 1.9 %; HEMOGLOBIN P3 3.4 %
[2016-06-19] MEDS ORDERED: ALUMINUM/MAGNESIUM/SIMETH 30 ML CUP PO PRN (14:00)
[2016-06-19] MEDS ORDERED: MAGNESIUM HYDROXIDE SUSP 30 ML CUP PO PRN (14:00)
[2016-06-19] MEDS ORDERED: ELETRIPTAN 40 MG PO PRN (14:00)
--- NOTE | 2016-06-19 14:43 | HHI.HP ---
Provisional Diagnosis Admission Date June 18, 2016 at 18:33 [place]. 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 Express and informed consent means consent voluntarily given in writing, by a competent person, after sufficient explanation and disclosure of the subject matter involved to enable the person to make a knowing and willful decision without any element of force, fraud, deceit, duress, or other form of constraint or coercion. This person is 18 years of age or older, is not now known to be incompetent to consent to treatment with a guardian advocate, and does not have a health care surrogate or proxy currently making medical treatment decisions. I have found this person to be one of the following: [] Competent to provide express and informed consent, as defined above, for voluntary admission to this facility and is competent to provide express and informed consent for treatment. He/she has the consistent capacity to make well reasoned, willful, and knowing decisions concerning his or her medical or mental health treatment. The person fully and consistently understands the purpose of the admission for examination/placement and is fully capable of personally exercising all rights assured [place]xx] Incompetent to provide express and informed consent to voluntary admission , and this is incompetent to provide express and informed consent to treatment. The person must be transferred to involuntary status and a petition for a guardian advocate filed with the Circuit Court. [] Refusing to provide express and informed consent to voluntary admission but is competent to provide express and informed consent for treatment. The person must be discharged or transferred to involuntary status. Form shall be completed within 24 hours of a person's arrival at the receiving facility and filed in the clinical record of each person: 1. Admitted on a voluntary basis 2. Permitted to provide express and informed consent to his/her own treatment 3. Allowed to transfer from involuntary to voluntary status 4. Prior to permitting a person to consent to his or her own treatment after having been previously found incompetent to consent to treatment. History of Present Illness Capacity: Lacks Capacity HPI Patient is 66-year-old white female who comes here under [place] act dated June 18, 2016 3:30 signed by Jazmine Hernandez anti-OYSTER TONGER certificate reviewed essentially stating bipolar disorder dementia Alzheimer's wandering looking for a knife to hurt himself refusing medication. Patient is seen screened in the ED. Medically cleared. Of interest patient was seen here also on 06/16 being brought in by her family concerns about her deterioration in behavior related to her significant dementing process. Family at that time declined admission, wanted to try medication. At that time the patient was given given Ativan and Haldol. Family returned to the ED with this visit due to patient's continuing deteriorating behavior. It also appears that her PCP and her neurologist also declined to make appropriate referrals for a possible placement in the secure facility. It appears the family has found a secure facility with the facility requested that the family bring the patient back here for medication stabilization prior to admission to that facility. Patient also has a history of bipolar disorder and seizure disorder. She does see Dr. Evangelista for her seizure disorder. It appears patient's behavior became more severe threatening at home with wandering exits seeking going out onto the balcony of the fourth floor apartment and attempting to get some type of weapon perhaps to harm herself or others to the point where her felt unsafe for himself and that situation. Patient seen in her room with floor staff she is a thin slight slender lady with shortcut fernández hair appears stated age. She is diffusely confused in all 4 spheres does not remember her place level of education. She is vague about whether her parents are alive or though she feels they're alive. It appears she has some minimal insight into the degree of her memory difficulties. She does acknowledge a history of bipolar disorder it appears she has had hospitalizations for that in the past along with ECT treatment in the past. There is no history of seizure disorder being treated by Dr. Evangelista who we will have consult with us. At this time patient does meet criteria for acute involuntary psychiatric hospitalization under the [place] act I'll do first opinion requests second opinion, I feel she does not have capacity, I will ask for healthcare surrogate and guardian advocate. Will have hospitalist consult was along with Dr. Evangelista. We'll of counselor contact patient's to arrange a meeting for tomorrow morning about 11 AM. Continue her medications per med reconciliation though will refrain from any Haldol for benzodiazepine and to a talk with family about medication options Review of Systems Constitutional: DENIES: Diaphoretic episodes, Fatigue, Fever, Weight gain, Weight loss, Chills, Dizziness, Change in appetite, Night Sweats Endocrine: DENIES: Abnorml menstrual pattern, Heat/cold intolerance, Polydipsia , Polyuria, Polyphagia Eyes: DENIES: Blurred vision, Diplopia, Eye inflammation, Eye pain, Vision loss , Photosensitivity, Double Vision Ears, nose, mouth, throat: DENIES: Tinnitus, Hearing loss, Vertigo, Nasal discharge, Oral lesions, Throat pain, Hoarseness, Ear Pain, Running Nose, Epistaxis, Sinus Pain, Toothache, Odynophagia Respiratory: DENIES: Apneas, Cough, Snoring, Wheezing, Hemoptysis, Sputum production, Shortness of breath Cardiovascular: DENIES: Chest pain, Palpitations, Syncope, Dyspnea on Exertion , PND, Lower Extremity Edema, Orthopnea, Claudication Gastrointestinal: DENIES: Abdominal pain, Black stools, Bloody stools, Constipation, Diarrhea, Nausea, Vomiting, Difficulty Swallowing, Anorexia Genitourinary: DENIES: Abnormal vaginal bleeding, Dysmenorrhea, Dyspareunia, Sexual dysfunction, Urinary frequency, Urinary incontinence, Urgency, Hematuria , Dysuria, Nocturia, Vaginal discharge Musculoskeletal: DENIES: Joint pain, Muscle aches, Stiffness, Joint Swelling, Back pain, Neck pain Integumentary: DENIES: Abnormal pigmentation, Pruritus, Rash, Nail changes, Breast masses, Breast skin changes, Nipple discharge Hematologic/lymphatic: DENIES: Bruising, Lymphadenopathy Immunologic/allergic: DENIES: Eczema, Urticaria Neurologic: COMPLAINS OF: Seizures Psychiatric: COMPLAINS OF: Anxiety, Agitation Past Psych History Psychological trauma history unable to ascertain at this time Violence risk - others (6 mos) Patient attempted to get knife the home concern by family Violence risk - self (6 mos) Unknown if suicidal thoughts related to her getting nifedipine her home Substance Abuse History Drugs/Alcohol past 12 months Denies low states occasionally has a glass of wine with dinner Past Family Social History Coded Allergies: Sulfa (Unverified Allergy, Unknown, redness and swelling, 06/16/16) Past Medical History History of seizures Active Scripts Lorazepam (Ativan)0.5 Mg Tab0.5 Mg PO Q4H PRN (For mild anxiety / dyspnea) #15 TAB Ref 0 Prov:Toni Johnson MD 06/16/16 Mupirocin Topical (Bactroban Topical)2% Oint1 Appl TOPICAL BID 14 Days Prov:Toni Johnson MD 06/09/16 Reported Medications Lactobacillus Rhamnosus (GG) (Culturelle)10 B Cell Cap1 Cap PO DAILY Ref 0 06/18/16 Dextromethorphan HBr-Quinidine (Nuedexta 20-10 mg)1 Cap Cap1 Cap PO BID #60 CAP Ref 0 06/18/16 Cyanocobalamin (B12)1,000 Mcg Tab1,500 Mcg PO DAILY 06/18/16 Lamotrigine 200 Mg [id number] Mg PO BID #60 TAB Ref 0 06/18/16 Cholecalciferol (Vitamin D3)1,000 Unit Chew1,000 Units CHEW DAILY #1 BOTTLE Ref 0 04/06/16 Atorvastatin 20 Mg Tab20 Mg PO HS #30 TAB Ref 0 04/06/16 Bupropion HCl ER 12 HR 150 Mg [id number] Mg PO DAILY Ref 0 04/06/16 Hydrochlorothiazide 25 Mg Tab25 Mg PO DAILY #30 TAB Ref 0 04/06/16 Memantine Er (Namenda Xr)28 Mg Caper28 Mg PO DAILY #30 CAP Ref 0 04/06/16 Eletriptan (Relpax)40 Mg Tab40 Mg PO ONCE PRN (MIGRAINE HEADACHE) #6 TAB Ref 0 04/06/16 Meloxicam 15 Mg Tab15 Mg PO DAILY PRN (ARTHRITIS PAIN) #30 TAB Ref 0 04/06/16 Carbidopa-Levodopa 25-100 Mg Tab1 Tab PO Q8HR #90 TAB Ref 0 04/06/16 Sumatriptan 100 Mg [id number] Mg PO ONCE PRN (MIGRAINE HEADACHE) Ref 0 If a satisfactory response has not been obtained at 2 hours, a second dose may be administered 04/06/16 Levothyroxine 75 Mcg Tab75 Mcg PO DAILY #30 TAB Ref 0 04/06/16 Alendronate 70 Mg Tab70 Mg PO Q7D ON MONDAYS #4 TAB Ref 0 04/06/16 Discontinued Reported Medications Cobalamine Combinations (Vitamin V26-Uejvd Acid)500-400 Mcg Tab3 Tab PO DAILY Ref 0 04/06/16 Lamotrigine 100 Mg [id number] Mg PO BID #60 TAB Ref 0 04/06/16 Dicyclomine 20 Mg Tab20 Mg PO TID #90 TAB Ref 0 04/06/16 Discontinued Scripts Haloperidol 2 Mg Tab2 Mg PO BID #10 TAB Ref 0 Prov:Toni Johnson MD 06/16/16 Cephalexin (Keflex)500 Mg [id number] Mg PO Q6H 5 Days Prov:Toni Johnson MD 06/09/16 Current Medications Medications (Trade) Dose Ordered Sig/Aisha Route Start Time Stop Time Status Last Admin (NS Flush) 2 ml UNSCH PRN IVF 06/18/16 13:15 (Tylenol) 650 mg Q4H PRN PO 06/18/16 19:15 (Milk Of Magnesia Liq) 30 ml DAILY PRN PO 06/18/16 19:15 (Mag-Al Plus Susp Liq) 30 ml Q6H PRN PO 06/18/16 19:15 (Benadryl) 50 mg HS PRN PO 06/19/16 14:00 UNV (Tylenol) 650 mg Q4H PRN PO 06/19/16 14:00 UNV (Milk Of Magnesia Liq) 30 ml DAILY PRN PO 06/19/16 14:00 UNV (Mag-Al Plus Susp Liq) 30 ml Q6H PRN PO 06/19/16 14:00 UNV (Atarax) 50 mg Q6H PRN PO 06/19/16 14:00 UNV (Lipitor) 20 mg HS PO 06/19/16 21:00 UNV (Wellbutrin Sr) 300 mg DAILY PO 06/20/16 09:00 UNV (Sinemet 25-100 Mg) 1 tab Q8HR PO 06/19/16 14:00 UNV (Vitamin D3) 1,000 units DAILY PO 06/20/16 09:00 UNV (Hydrodiuril) 25 mg DAILY PO 06/20/16 09:00 UNV (LaMICtal) 200 mg BID PO 06/19/16 21:00 UNV (Synthroid) 75 mcg DAILY PO 06/20/16 09:00 UNV (Mobic) 15 mg DAILY PRN PO 06/19/16 14:00 UNV (Bactroban 2% Oint) 1 applic BID TOPICAL 06/19/16 21:00 UNV (Imitrex) 100 mg ONCE PRN PO 06/19/16 14:00 UNV Non-Formulary Medication 1,500 mcg DAILY PO 06/20/16 09:00 UNV Non-Formulary Medication 1 cap BID PO 06/19/16 21:00 UNV Non-Formulary Medication 40 mg ONCE PRN PO 06/19/16 14:00 UNV Non-Formulary Medication 1 cap DAILY PO 06/20/16 09:00 UNV Non-Formulary Medication 28 mg DAILY PO 06/20/16 09:00 UNV Family History Unknown at this time Social History Patient lives with Patient's Strengths (min. 2) Patient verbal irritable access healthcare has supportive family Physical Exam Patient seen screened in ED exam reviewed and agreed with vital signs blood pressure 134/80 pulse 97 respirations 18 Vital Signs Vital Signs Date Time Temp Pulse Resp B/P Pulse Ox O2 Delivery O2 Flow Rate FiO2 06/19/16 05:55 98.2 97 18 134/80 06/18/16 18:00 98 Room Air I/O 06/18/16 06/18/16 06/19/16 08:00 16:00 00:00 Intake Total 360 ml Balance 360 ml Mental Status Examination Alert diffusely confused all 4 spheres white female appears stated age thin slender slightly disheveled in appearance with fair eye contact sitting with a somewhat anxious guarded attitude Appearance Slightly disheveled Speech: Hesitant, Circumstantial, Tangential Orientation: Person (vaguely) Memory: Impaired (describe) Thought Process: Circumstantial, Loose Association Thought Content: Other (disorganized) Language [employer] Knowledge Poor Hallucination Type: None Attention and Concentration: Easily Distracted Suicidal Ideation: No (denies) Previous Suicide Attempts: No (denies) Homicidal Ideation: No (denies though appears to been searching for weapons in the home) Previous Homicide Attempts: No (denies) Insight: Poor Judgment: Poor Affect: Other (slight increase range and intensity) Mood: Euthymic, Anxious Motor Activity: Normal gait (to somewhat unstable will have PT assess) Assessment & Plan Problem List: (1) Dementia ICD Code: F03.90 (2) Bipolar disorder ICD Code: F31.9 Assessment & Plan Estimated LOS: 5-7 days patient does meet criteria for involuntary psychiatric hospitalization of the [place] act. I will do first opinion request second opinion. However she does not have capacity thus I'll ask for healthcare surrogate and guardian advocate. We will have hospitalist consult will less and have neurology, Dr. Evangelista, consult also. 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
[2016-06-19] MEDS ORDERED: SUMAtriptan SUCCINATE 50 MG TAB PO PRN (16:00)
--- NOTE | 2016-06-19 16:03 | PD.CONS ---
HPI Service [facility] Hospitalists Consult Requested By psych service Reason for Consult medical management Primary Care Physician Non-Staff Diagnoses: History of Present Illness Patient is a 66 yo female with PMH of HTN, HLD, dementia, Bipolar disorder, Parkinson, Hyperlipidemia, who came to the ED with family requesting placement in assisted living facility secondary to worsening dementia over the past 2 months. History is obtained from patient partially and form records. Patient family reported that patient has been intermittently compliant with her regular medications, becoming more combative at home, and trying to wander off. Patient was seen at [place] [facility] 2 days ago for same was offered admission to psychiatric yu at that time her family refuses and wanted to try medication first. Medication has not been helping per family history to get primary care doctor to follow-up [id number] performed for placement, but per family patient's primary care doctor refuses this. They tried getting patient's neurologist and was told it was up to the primary care provider. Patient was then brought back to the emergency department for possible admission or assistance in getting the patient placed. Denies cp, sob, n/v/d/c. Normal BM. No urinary complaints. No fever or chills. Patient denies any complaints or concerns. Denies any chest pain, shortness of breath, vomiting, or fevers. The patient is pleasantly confused, with flights of idea. She is ambulating in the hallway without problems. Says she deosn't have any pain, No sob, cp, n/v/d/c. Says she is not eating much but she is not a big eater anyway. Her BMI is 18.5. Says she has been skinny all her life. Otherwise no complaints. Review of Systems ROS Limitations: Psychotic, Poor Historian Except as stated in HPI: all other systems reviewed are Neg Past Family Social History Allergies: Coded Allergies: Sulfa (Unverified Allergy, Unknown, redness and swelling, 06/16/16) Past Medical History HTN, HLD, Parkinson, hypothyroidism, dementia, Bipolar disorder Past Surgical History partial hysterectomy Reported Medications Last Impressions Chest X-Ray 06/18/16 1305 Signed Impressions: Service Date/Time: Saturday, June 18, 2016 13:40 - CONCLUSION: No acute cardiopulmonary disease identified. Sheldon Dey MD Family History Says diabetes run in her family (mother and grandmother) Social History Denies EtOH use, tobacco use or illicit drug use. Physical Exam Vital Signs Vital Signs Date Time Temp Pulse Resp B/P Pulse Ox O2 Delivery O2 Flow Rate FiO2 06/19/16 05:55 98.2 97 18 134/80 06/18/16 19:20 80 18 153/94 06/18/16 18:00 98.4 86 16 159/78 98 Room Air Physical Exam GENERAL: This is a pleasant skinny 66 yo female, well-nourished, well-developed patient, in no apparent distress. Preoccupied, with flight of ideas, very hard to focus on conversation, following commands. SKIN: No rashes, ecchymoses or lesions. Cool and dry. HEAD: Atraumatic. Normocephalic. No temporal or scalp tenderness. EYES: Pupils equal round and reactive. Extraocular motions intact. No scleral icterus. No injection or drainage. ENT: Nose without bleeding, purulent drainage or septal hematoma. Throat without erythema, tonsillar hypertrophy or exudate. Uvula midline. Airway patent. NECK: Trachea midline. No JVD or lymphadenopathy. Supple, nontender, no meningeal signs. CARDIOVASCULAR: Regular rate and rhythm without murmurs, gallops, or rubs. RESPIRATORY: Clear to auscultation. Breath sounds equal bilaterally. No wheezes , rales, or rhonchi. GASTROINTESTINAL: Abdomen soft, non-tender, nondistended. No hepato-splenomegaly , or palpable masses. No guarding. MUSCULOSKELETAL: Muscle waisting. Extremities without clubbing, cyanosis, or edema. No joint tenderness, effusion, or edema noted. No calf tenderness. Negative Homans sign bilaterally. NEUROLOGICAL: Awake and alert.Cranial nerves II through XII intact. Motor and sensory grossly within normal limits. Five out of 5 muscle strength in all muscle groups. Normal speech. Laboratory Laboratory Tests Test 06/18/16 06/19/16 16:55 05:50 Sodium Level 140 Potassium Level 3.7 Chloride Level 105 Carbon Dioxide Level 29.4 Anion Gap 6 Blood Urea Nitrogen 13 Creatinine 0.76 Estimat Glomerular Filtration 76 Rate Random Glucose 134 Calcium Level 9.2 Hemoglobin A1c 5.2 Triglycerides Level 80 Cholesterol Level 192 LDL Cholesterol 97 HDL Cholesterol 78.8 Cholesterol/HDL Ratio 2.43 Date/Time Procedure Status Source Growth 06/18/16 14:00 Urine Culture - Preliminary Resulted Urine Catheterized Urine Gram Negative Marco Result Diagram: 06/18/16 1310 06/18/16 1655 Imaging Last Impressions Chest X-Ray 06/18/16 1305 Signed Impressions: Service Date/Time: Saturday, June 18, 2016 13:40 - CONCLUSION: No acute cardiopulmonary disease identified. Sheldon Dey MD Assessment and Plan Assessment and Plan Pleasant 66 yo F with PMH of HTN, HLD, dementia, Bipolar disorder Demential Bipolar disorder. management per psychiatry HTN: restart home meds. Monitor BP and adjust as need. HLD continue home meds. Atorvastatin 20 Mg PO HS Bupropion HCl ER 12 HR (Bupropion HCl) 150 Mg Tab 300 Mg PO DAILY Hydrochlorothiazide 25 Mg Tab 25 Mg PO DAILY Parkinson disease: continue Carbidopa-Levodopa 25-100 Mg Tab 1 Tab PO Q8HR. Consult neurology . Hypothyroidism: continue Levothyroxine 75 Mcg PO DAILY Protein calorie malnutrition, mild, BMI is 18.5, muscle waisting. Add ensure to diet. Dietary consult. Will check prealbumin DVT ppx patient is ambulating Discussed Condition With patient, nurse Kisha Cotton MD June 19, 2016 16:02
[2016-06-19] MEDS ORDERED: PILL SPLITTER OTHER PRN (16:15)
[2016-06-19 17:17] VITALS: BP 110/62; PULSE 119; RESP 18; TEMP 97.7
--- NOTE | 2016-06-19 20:30 | MB ---
cc: TENZIN WHEELER M.D. DATE OF CONSULTATION 06/19/2016 HISTORY She is a 66-year-old woman seen in neurological consultation in regards to confusion. It appears that she is a patient of my partner Dr. Evangelista and she follows for seizure disorder and bipolar disorder as well as dementia. Because of her recent threatening behavior she was brought to the hospital. The patient is in the psychiatric unit. I spoke to the nursing staff. I reviewed the HPI. The patient is unable to provide any history whatsoever. MEDICATIONS Her reported medications include: 1. Namenda XR 28 mg. 2. Lamotrigine 200 mg twice a day. 3. She may have been on Carbidopa levodopa. 4. She takes migraine medications. 5. As well as bupropion apparently 150 mg twice a day. 6. She is on a statin. PHYSICAL EXAMINATION GENERAL: On exam the patient is awake, smiles and she did greet me but she is evidently quite confused, has no insight whatsoever. Has no orientation to place, to date, does not know her age. She answered that she lived with her father and mother and when I questioned about the she describes that she has a very sweet but she did not know about children. She has difficulty following any two-step commands. With assistance she followed some simple commands. She was fairly calm, cooperative, ambulated with my assistance. Gait is mildly broad based. There is no tremor. No spasticity though she is a bit rigid. She was able to count fingers in both right and left visual field. There is no facial asymmetry. She seems to have basic comprehension. LABORATORY DATA Ancillary data, CBC is normal. Chemistry with essentially normal findings except for glucose of 134 which was a random blood sugar. Urinalysis negative mostly. Some rare bacteria noted. IMAGING Chest x-ray no acute cardiopulmonary findings. ASSESSMENT Dementia with psychosis. Reportedly the patient was a threat to herself as she was wandering, going out to a balcony on the fourth floor apartment and attempting to get some type of weapon perhaps to harm herself or others. There is a history of seizure disorder. I should be able to look at some of Dr. Evangelista's records. We will review this information. I do not think seizures is an ongoing issue. This appears to be primarily a dementing illness with associated psychosis. She has been placed on carbidopa / levodopa. At this point I do not see Parkinsonian type of syndrome. The Lamictal is in order and the dose is 200 mg twice a day. Evidently sedatives and antipsychotics should be used only if absolutely necessary. Thank you for asking us to assist in her care. MD YE Bran/KK /4:49 PM /8:07 PM
[2016-06-19] MEDS: CARBIDOPA/LEVODOPA 25 MG/100 MG TAB PO SCH (21:04)
[2016-06-19] MEDS: lamoTRIgine 100 MG TAB PO SCH (21:04)
[2016-06-19] MEDS: ATORVASTATIN 20 MG TAB PO SCH (21:04)
[2016-06-19 21:08] VITALS: PULSE 84
[2016-06-19] MEDS: hydrOXYzine HCL 50 MG TAB PO PRN (21:14)
[2016-06-19] MEDS: diphenhydrAMINE HCL 50 MG CAP PO PRN (21:14)
[2016-06-19] MEDS: ACETAMINOPHEN 325 MG TAB PO PRN (21:15)
[2016-06-19] MEDS: MUPIROCIN 2% OINT 22 GM TUBE TOPICAL SCH (23:04)
[2016-06-20 05:33] VITALS: BP 159/72; PULSE 69; RESP 18; TEMP 97.4
[2016-06-20 06:00] VITALS: BP 159/72; PULSE 69; RESP 18; TEMP 97.4; O2SAT 96
[2016-06-20] MEDS: CARBIDOPA/LEVODOPA 25 MG/100 MG TAB PO SCH ×3 (06:27→21:58)
[2016-06-20] MEDS: LEVOTHYROXINE SODIUM 75 MCG TAB PO SCH (06:27)
[2016-06-20] MEDS: MUPIROCIN 2% OINT 22 GM TUBE TOPICAL SCH ×2 (09:00→21:00)
[2016-06-20] MEDS ORDERED: MELOXICAM 15 MG TAB PO PRN (09:00)
[2016-06-20] MEDS: LACTOBACILLUS ACIDOPHILUS TAB PO SCH (09:00)
[2016-06-20] MEDS: CHOLECALCIFEROL (VIT D3) 1000 UNIT TAB PO SCH (09:00)
[2016-06-20] MEDS: buPROPion HCL 150 MG SUSTAINED RELEASE TAB PO SCH (09:00)
[2016-06-20] MEDS: lamoTRIgine 100 MG TAB PO SCH ×2 (09:01→21:58)
[2016-06-20] MEDS: HYDROCHLOROTHIAZIDE 25 MG TAB PO SCH (09:01)
[2016-06-20] MEDS: CYANOCOBALAMIN 1,000 MCG TAB PO SCH (09:01)
--- NOTE | 2016-06-20 10:37 | PD.CONS ---
Provisional Diagnosis Admission Date June 18, 2016 at 18:33 Hartley I. 1. Dementia of the Alzheimer's type with early onset and behavioral disturbance 2. History of bipolar disorder Hartley II. Deferred Hartley V. GAF is 30 presently History of Present Illness Service Psychiatry Consult Requested By Dr. Patrick Reason for Consult Second opinion for involuntary psychiatric hospitalization Primary Care Physician Non-Staff HPI From Dr. Patrick's H&P: Patient is 66-year-old white female who comes here under [place] act dated June 18, 2016 3:30 signed by Jazmine Hernandez anti-RAG INSPECTOR certificate reviewed essentially stating bipolar disorder dementia Alzheimer's wandering looking for a knife to hurt himself refusing medication. Patient is seen screened in the ED. Medically cleared. Of interest patient was seen here also on 06/16 being brought in by her family concerns about her deterioration in behavior related to her significant dementing process. Family at that time declined admission, wanted to try medication. At that time the patient was given given Ativan and Haldol. Family returned to the ED with this visit due to patient's continuing deteriorating behavior. It also appears that her PCP and her neurologist also declined to make appropriate referrals for a possible placement in the secure facility. It appears the family has found a secure facility with the facility requested that the family bring the patient back here for medication stabilization prior to admission to that facility. Patient also has a history of bipolar disorder and seizure disorder. She does see Dr. Evangelista for her seizure disorder. It appears patient's behavior became more severe threatening at home with wandering exits seeking going out onto the balcony of the fourth floor apartment and attempting to get some type of weapon perhaps to harm herself or others to the point where her felt unsafe for himself and that situation. Patient seen in her room with floor staff she is a thin slight slender lady with shortcut fernández hair appears stated age. She is diffusely confused in all 4 spheres does not remember her place level of education. She is vague about whether her parents are alive or though she feels they're alive. It appears she has some minimal insight into the degree of her memory difficulties. She does acknowledge a history of bipolar disorder it appears she has had hospitalizations for that in the past along with ECT treatment in the past. There is no history of seizure disorder being treated by Dr. Evangelista who we will have consult with us. At this time patient does meet criteria for acute involuntary psychiatric hospitalization under the [place] act I'll do first opinion requests second opinion, I feel she does not have capacity, I will ask for healthcare surrogate and guardian advocate. Will have hospitalist consult was along with Dr. Evangelista. We'll of counselor contact patient's to arrange a meeting for tomorrow morning about 11 AM. Continue her medications per med reconciliation though will refrain from any Haldol for benzodiazepine and to a talk with family about medication options On my examination today: Patient seen and examined. Chart reviewed. Case discussed with nursing staff. On my examination today, the patient presents as quite confused. See full mental status testing below. She is presently calm and affect is generally euthymic. She tells me "my brother is a flori person." She denies any suicidal or homicidal ideation. She denies any audiovisual hallucinations. Psychiatric interview was quite limited because of the patient's degree of cognitive impairment Past psychiatric history: Patient is likely an unreliable historian. She does describe a history of psychiatric admissions but cannot recall where or when. She denies any history of suicide attempts. Family history: Patient denies any family history of mental illness. Chemical dependency history: Patient denies any abuse of drugs or alcohol. Social history: Patient does recall that she is and has 2 children. 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 She denies any or legal history. Review of Systems ROS Limitations: Poor Historian Except as stated in HPI: all other systems reviewed are Neg Past Family Social History Coded Allergies: Sulfa (Unverified Allergy, Unknown, redness and swelling, 06/16/16) Past Medical History See electronic medical record Active Scripts Lorazepam (Ativan)0.5 Mg Tab0.5 Mg PO Q4H PRN (For mild anxiety / dyspnea) #15 TAB Ref 0 Prov:Toni Johnson MD 06/16/16 Mupirocin Topical (Bactroban Topical)2% Oint1 Appl TOPICAL BID 14 Days Prov:Toni Johnson MD 06/09/16 Reported Medications Lactobacillus Rhamnosus (GG) (Culturelle)10 B Cell Cap1 Cap PO DAILY Ref 0 06/18/16 Dextromethorphan HBr-Quinidine (Nuedexta 20-10 mg)1 Cap Cap1 Cap PO BID #60 CAP Ref 0 06/18/16 Cyanocobalamin (B12)1,000 Mcg Tab1,500 Mcg PO DAILY 06/18/16 Lamotrigine 200 Mg [id number] Mg PO BID #60 TAB Ref 0 06/18/16 Cholecalciferol (Vitamin D3)1,000 Unit Chew1,000 Units CHEW DAILY #1 BOTTLE Ref 0 04/06/16 Atorvastatin 20 Mg Tab20 Mg PO HS #30 TAB Ref 0 04/06/16 Bupropion HCl ER 12 HR 150 Mg [id number] Mg PO DAILY Ref 0 04/06/16 Hydrochlorothiazide 25 Mg Tab25 Mg PO DAILY #30 TAB Ref 0 04/06/16 Memantine Er (Namenda Xr)28 Mg Caper28 Mg PO DAILY #30 CAP Ref 0 04/06/16 Eletriptan (Relpax)40 Mg Tab40 Mg PO ONCE PRN (MIGRAINE HEADACHE) #6 TAB Ref 0 04/06/16 Meloxicam 15 Mg Tab15 Mg PO DAILY PRN (ARTHRITIS PAIN) #30 TAB Ref 0 04/06/16 Carbidopa-Levodopa 25-100 Mg Tab1 Tab PO Q8HR #90 TAB Ref 0 04/06/16 Sumatriptan 100 Mg [id number] Mg PO ONCE PRN (MIGRAINE HEADACHE) Ref 0 If a satisfactory response has not been obtained at 2 hours, a second dose may be administered 04/06/16 Levothyroxine 75 Mcg Tab75 Mcg PO DAILY #30 TAB Ref 0 04/06/16 Alendronate 70 Mg Tab70 Mg PO Q7D ON MONDAYS #4 TAB Ref 0 04/06/16 Discontinued Reported Medications Cobalamine Combinations (Vitamin F15-Ichsl Acid)500-400 Mcg Tab3 Tab PO DAILY Ref 0 04/06/16 Lamotrigine 100 Mg Aik205 Mg PO BID #60 TAB Ref 0 04/06/16 Dicyclomine 20 Mg Tab20 Mg PO TID #90 TAB Ref 0 04/06/16 Discontinued Scripts Haloperidol 2 Mg Tab2 Mg PO BID #10 TAB Ref 0 Prov:Toni Johnson MD 06/16/16 Cephalexin (Keflex)500 Mg [id number] Mg PO Q6H 5 Days Prov:Toni Johnson MD 06/09/16 Current Medications Medications (Trade) Dose Ordered Sig/Aisha Route Start Time Stop Time Status Last Admin (NS Flush) 2 ml UNSCH PRN IVF 06/18/16 13:15 (Benadryl) 50 mg HS PRN PO 06/19/16 21:00 06/19/16 21:14 (Tylenol) 650 mg Q4H PRN PO 06/19/16 14:00 06/19/16 21:15 (Milk Of Magnesia Liq) 30 ml DAILY PRN PO 06/19/16 14:00 (Mag-Al Plus Susp Liq) 30 ml Q6H PRN PO 06/19/16 14:00 (Atarax) 50 mg Q6H PRN PO 06/19/16 16:00 06/19/16 21:14 (Lipitor) 20 mg HS PO 06/19/16 21:00 06/19/16 21:04 (Wellbutrin Sr) 300 mg DAILY PO 06/20/16 09:00 06/20/16 09:00 (Sinemet 25-100 Mg) 1 tab Q8HR PO 06/19/16 22:00 06/20/16 06:27 (Vitamin D3) 1,000 units DAILY PO 06/20/16 09:00 06/20/16 09:00 (Hydrodiuril) 25 mg DAILY PO 06/20/16 09:00 06/20/16 09:01 (LaMICtal) 200 mg BID PO 06/19/16 21:00 06/20/16 09:01 (Synthroid) 75 mcg DAILY@0600 PO 06/20/16 06:00 06/20/16 06:27 (Mobic) 15 mg DAILY PRN PO 06/20/16 09:00 (Bactroban 2% Oint) 1 applic BID TOPICAL 06/19/16 21:00 06/20/16 09:00 (Vitamin B12) 1,500 mcg DAILY PO 06/20/16 09:00 06/20/16 09:01 Non-Formulary Medication 1 cap BID PO 06/19/16 21:00 Hold (Lactinex) 1 tab DAILY PO 06/20/16 09:00 06/20/16 09:00 Non-Formulary Medication 28 mg DAILY PO 06/20/16 09:00 Hold (Pill Splitter) 1 ea UNSCH PRN OTHER 06/19/16 16:15 Family History See above Social History See above Patient's Strengths (min. 2) In a monitored setting. Verbally fluent. Physical Exam Physical examination completed by hospitalist packaging sales consultant. On my examination today, patient appears to be in no acute physical distress. No motor abnormalities noted. Laboratories and vital signs reviewed: Vital Signs Vital Signs Date Time Temp Pulse Resp B/P Pulse Ox O2 Delivery O2 Flow Rate FiO2 06/20/16 06:00 97.4 69 18 159/72 96 06/18/16 18:00 Room Air I/O 06/19/16 06/19/16 06/20/16 08:00 16:00 00:00 Intake Total 360 ml 720 ml Balance 360 ml 720 ml Lab Results Item Value Date Time White Blood Count 7.8 TH/MM3 06/18/16 1310 Hemoglobin 14.4 GM/DL 06/18/16 1310 Platelet Count 232 TH/MM3 06/18/16 1310 Sodium Level 140 MEQ/L 06/18/16 1655 Potassium Level 3.7 MEQ/L 06/18/16 1655 Chloride Level 105 MEQ/L 06/18/16 1655 Carbon Dioxide Level 29.4 MEQ/L 06/18/16 1655 Blood Urea Nitrogen 13 MG/DL 06/18/16 1655 Creatinine 0.76 MG/DL 06/18/16 1655 Hemoglobin A1c 5.2 % 06/19/16 0550 Thyroid Stimulating Hormone 3rd Gen 3.180 uIU/ML 06/19/16 0550 Prealbumin 26 MG/DL 06/19/16 0550 Mental Status Examination Patient is in hospital gown. She is fairly well groomed. She is awake and alert and oriented to person only. Her registration is 1 out of 3 and her recall is 0 out of 3 at 3 minutes. She is able to name one of 2 items. She is unable to spell the word world backward or forward. She is unable to repeat a phrase. No motor abnormalities noted. Speech is within normal limits for rate , tone and volume although word finding difficulties or noted. Language and fund of knowledge seems reduced for age. Mood is fair and affect is euthymic. Thought process somewhat disorganized consistent with dementia diagnosis. No samra delusions. No audiovisual hallucinations. Denies suicidal or homicidal ideation but is unreliable to contract for safety in her present state. Insight and judgment are poor. Assessment & Plan Problem List: (1) Dementia ICD Code: F03.90 Assessment & Plan Given the circumstances of the patient's presentation here and her presentation on my examination today, I concur with Dr. Patrick that the patient meets criteria for involuntary psychiatric hospitalization under the [place] act. I completed the second opinion paperwork. Further care as per Dr. Patrick. Thank you very much for this consultation. Signing off. Request HC Surrog/Guard Advoc?: Yes Problem Qualifiers (1) Dementia: Qualified Code: G30.0 - Early onset Alzheimer's disease with behavioral disturbance Ty Bowen MD June 20, 2016 10:37
--- NOTE | 2016-06-20 13:01 | HHI.PR ---
Subjective Remarks Patient in nad, she is eating. Says she can walk without any problems. She is smiling. Says she has tremors but not much than usual. Very pleasant, having problems focusing on conversation. She denies chest pain, sob, n/v/d/c. No fever or chills. Objective Vitals Vital Signs Date Time Temp Pulse Resp B/P Pulse Ox O2 Delivery O2 Flow Rate FiO2 06/20/16 06:00 97.4 69 18 159/72 96 06/20/16 05:33 97.4 69 18 159/72 06/19/16 21:08 84 06/19/16 17:17 97.7 119 18 110/62 I/O 06/19/16 06/19/16 06/19/16 06/20/16 06/20/16 06/20/16 07:00 15:00 23:00 07:00 15:00 23:00 Intake Total 360 ml 720 ml 120 ml Balance 360 ml 720 ml 120 ml Intake Oral 360 ml 720 ml 120 ml # Voids 3 2 1 # Bowel Movements 2 Result Diagram: 06/18/16 1310 06/18/16 1655 Imaging Last Impressions Chest X-Ray 06/18/16 1305 Signed Impressions: Service Date/Time: Saturday, June 18, 2016 13:40 - CONCLUSION: No acute cardiopulmonary disease identified. Sheldon Dey MD Objective Remarks GENERAL: This is a pleasant skinny 66 yo female, well-nourished, well-developed patient, in no apparent distress. Preoccupied, with flight of ideas, very hard to focus on conversation, following commands. SKIN: No rashes, ecchymoses or lesions. Cool and dry. HEAD: Atraumatic. Normocephalic. No temporal or scalp tenderness. EYES: Pupils equal round and reactive. Extraocular motions intact. No scleral icterus. No injection or drainage. ENT: Nose without bleeding, purulent drainage or septal hematoma. Throat without erythema, tonsillar hypertrophy or exudate. Uvula midline. Airway patent. NECK: Trachea midline. No JVD or lymphadenopathy. Supple, nontender, no meningeal signs. CARDIOVASCULAR: Regular rate and rhythm without murmurs, gallops, or rubs. RESPIRATORY: Clear to auscultation. Breath sounds equal bilaterally. No wheezes , rales, or rhonchi. GASTROINTESTINAL: Abdomen soft, non-tender, nondistended. No hepato-splenomegaly , or palpable masses. No guarding. MUSCULOSKELETAL: Muscle waisting. Extremities without clubbing, cyanosis, or edema. No joint tenderness, effusion, or edema noted. No calf tenderness. Negative Homans sign bilaterally. No tremors. However she is noted with fine tremors at times. NEUROLOGICAL: Awake and alert.Cranial nerves II through XII intact. Motor and sensory grossly within normal limits. Five out of 5 muscle strength in all muscle groups. Normal speech. A/P Assessment and Plan Pleasant 66 yo F with PMH of HTN, HLD, dementia, Bipolar disorder Demential Bipolar disorder. Management per psychiatry HTN: restart home meds. Monitor BP and adjust as need. Hydrochlorothiazide 25 Mg PO DAILY HLD continue home meds. Atorvastatin 20 Mg PO HS Parkinson disease: continue Carbidopa-Levodopa 25-100 Mg Tab 1 Tab PO Q8HR. Consult neurology. Seizures: Continue lamictal.seen by neurology appreciate recommendations. Hypothyroidism: continue Levothyroxine 75 Mcg PO DAILY. TSH is normal. Protein calorie malnutrition, mild, BMI is 18.5, muscle waisting. Add ensure to diet. Dietary consult. Will check prealbumin DVT ppx patient is ambulating Discussed Condition With patient, nurse Kisha Cotton MD June 20, 2016 13:01
--- NOTE | 2016-06-20 14:21 | HHI.PYPN ---
Subjective Remarks Patient seen in dayroom with RN, chart review, neurology consult noted reviewed and agreed with and appreciated. Patient continues to wander is diffusely confused in all 4 spheres but redirectable with no significant behavioral issues noted at this time, compliant medications Review of Systems Except as stated in HPI: all other systems reviewed are Neg Objective Alert: Yes [place]: Person (only) Mood: Anxious Affect: Appropriate Memory Intact: Comment (impaired) Hallucinations: Other (neagtive) Delusions: No Delusion Type: Other (denies) Suicidal: Ideation (negative) Homicidal: Ideation (negative) Insight/Judgment Very poor Labs Date/Time Procedure Status Source Growth 06/18/16 14:00 Urine Culture - Final Complete Urine Catheterized Urine Escherichia Coli Vitals/IOs Vital Signs Date Time Temp Pulse Resp B/P Pulse Ox O2 Delivery O2 Flow Rate FiO2 06/20/16 06:00 97.4 69 18 159/72 96 06/18/16 18:00 Room Air Intake and Output 06/19/16 06/19/16 06/20/16 08:00 16:00 00:00 Intake Total 360 ml 720 ml Balance 360 ml 720 ml Assessment & Plan Problem List: (1) Dementia ICD Code: F03.90 (2) Bipolar disorder ICD Code: F31.9 Assessment & Plan Estimated LOS: days patient continues significantly confused and demented, compliant medications. For now continue treatment Justification for Cont. Inpt. At this time patient will decompensate if placed in the lower level of care Discharge Planning To be determined Request HC Surrog/Guard Advoc?: Yes Problem Qualifiers (1) Dementia: Qualified Code: G30.0 - Early onset Alzheimer's disease with behavioral disturbance (2) Bipolar disorder: Qualified Code: F31.70 - Bipolar disorder in partial remission, most recent episode unspecified type Sanchez Patrick MD June 20, 2016 14:21
[2016-06-20 17:17] VITALS: BP 133/82; PULSE 98; RESP 18; TEMP 97.6
[2016-06-20] MEDS ORDERED: DEXTROMETHORPHAN HBR QUINIDINE PO SCH (21:00)
[2016-06-20] MEDS: diphenhydrAMINE HCL 50 MG CAP PO PRN (21:58)
[2016-06-20] MEDS: ATORVASTATIN 20 MG TAB PO SCH (21:58)
[2016-06-20] MEDS: ACETAMINOPHEN 325 MG TAB PO PRN (21:59)
[2016-06-20] MEDS: DEXTROMETHORPHAN HBR QUINIDINE PO SCH (22:38)
[2016-06-21] MEDS: LEVOTHYROXINE SODIUM 75 MCG TAB PO SCH (05:48)
[2016-06-21] MEDS: CARBIDOPA/LEVODOPA 25 MG/100 MG TAB PO SCH ×3 (05:48→21:53)
[2016-06-21 06:34] VITALS: BP 142/69; PULSE 69; RESP 17; TEMP 98.1; O2SAT 99
[2016-06-21] MEDS: MUPIROCIN 2% OINT 22 GM TUBE TOPICAL SCH ×2 (09:00→21:00)
[2016-06-21] MEDS: lamoTRIgine 100 MG TAB PO SCH ×2 (10:14→21:53)
[2016-06-21] MEDS: LACTOBACILLUS ACIDOPHILUS TAB PO SCH (10:14)
[2016-06-21] MEDS: CYANOCOBALAMIN 1,000 MCG TAB PO SCH (10:14)
[2016-06-21] MEDS: HYDROCHLOROTHIAZIDE 25 MG TAB PO SCH (10:15)
[2016-06-21] MEDS: buPROPion HCL 150 MG SUSTAINED RELEASE TAB PO SCH (10:15)
[2016-06-21] MEDS: CHOLECALCIFEROL (VIT D3) 1000 UNIT TAB PO SCH (10:15)
[2016-06-21] MEDS: DEXTROMETHORPHAN HBR QUINIDINE PO SCH ×2 (10:21→21:52)
--- NOTE | 2016-06-21 11:56 | HHI.PYPN ---
Subjective Remarks Patient seen on unit with nurse Brittany, patient is to wander some exits seeking behaviors continues diffusely confused all 4 spheres. Though she is no significant behavioral issues. Compliant medications after seeing patient I met with patient's along with counselor Lisa. Patient's shared with us the fact that his did suffer from bipolar disorder through much of her adult life, though visibly 1 hospitalization for depression after the of their youngest child. He denies any significant alcohol or drug use with her. Denies any physical or sexual abuse or trauma. They have 3 children, an adult son who lives out [place] who is somewhat estranged from the family perhaps due to sons and ability to cope with his mother's dementia, he has a daughter who lives in [place] was a psychiatric nurse practitioner and another son who lives in [facility] delusion services executive. They're all doing well. In any event is distraught but coping. He is aware of the need for placement. It appears placement has been found at the [facility]. We need to observe patient over the weekend and if her behavior continues to show no significant problems consider discharge in the facility first part next week Review of Systems Except as stated in HPI: all other systems reviewed are Neg Objective Alert: Yes [place]: Person (only) Mood: Anxious Affect: Appropriate Memory Intact: Comment (impaired) Hallucinations: Other (neagtive) Delusions: No Delusion Type: Other (denies) Suicidal: Ideation (negative) Homicidal: Ideation (negative) Insight/Judgment Very poor Labs Date/Time Procedure Status Source Growth 06/18/16 14:00 Urine Culture - Final Complete Urine Catheterized Urine Escherichia Coli Vitals/IOs Vital Signs Date Time Temp Pulse Resp B/P Pulse Ox O2 Delivery O2 Flow Rate FiO2 06/21/16 06:34 98.1 69 17 142/69 99 06/18/16 18:00 Room Air Intake and Output 06/20/16 06/20/16 06/21/16 08:00 16:00 00:00 Intake Total 120 ml 480 ml 360 ml Balance 120 ml 480 ml 360 ml Assessment & Plan Problem List: (1) Dementia ICD Code: F03.90 Assessment & Plan Estimated LOS: days patient continues demented wandering with some exits seeking, but no other significant behavioral problems. Compliant medications. For now continue treatment Justification for Cont. Inpt. 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
--- NOTE | 2016-06-21 15:58 | HHI.PR ---
Review/Management Daily Summary 06/21 remains very dmented, utters words with no sense smiles and appears pleasant behavior not aggressive conitnue psych care and seizure meds outpt f/u with dr Evangelista Subjective Subjective Comments No acute events reported No headache No seizures Active Medications Current Medications Medications (Trade) Dose Ordered Sig/Aisha Route Start Time Stop Time Status Last Admin (NS Flush) 2 ml UNSCH PRN IVF 06/18/16 13:15 (Benadryl) 50 mg HS PRN PO 06/19/16 21:00 06/20/16 21:58 (Tylenol) 650 mg Q4H PRN PO 06/19/16 14:00 06/20/16 21:59 (Milk Of Magnesia Liq) 30 ml DAILY PRN PO 06/19/16 14:00 (Mag-Al Plus Susp Liq) 30 ml Q6H PRN PO 06/19/16 14:00 (Atarax) 50 mg Q6H PRN PO 06/19/16 16:00 06/19/16 21:14 (Lipitor) 20 mg HS PO 06/19/16 21:00 06/20/16 21:58 (Wellbutrin Sr) 300 mg DAILY PO 06/20/16 09:00 06/21/16 10:15 (Sinemet 25-100 Mg) 1 tab Q8HR PO 06/19/16 22:00 06/21/16 14:00 (Vitamin D3) 1,000 units DAILY PO 06/20/16 09:00 06/21/16 10:15 (Hydrodiuril) 25 mg DAILY PO 06/20/16 09:00 06/21/16 10:15 (LaMICtal) 200 mg BID PO 06/19/16 21:00 06/21/16 10:14 (Synthroid) 75 mcg DAILY@0600 PO 06/20/16 06:00 06/21/16 05:48 (Mobic) 15 mg DAILY PRN PO 06/20/16 09:00 (Bactroban 2% Oint) 1 applic BID TOPICAL 06/19/16 21:00 06/21/16 09:00 (Vitamin B12) 1,500 mcg DAILY PO 06/20/16 09:00 06/21/16 10:14 (Lactinex) 1 tab DAILY PO 06/20/16 09:00 06/21/16 10:14 Patient Own Medication PT OWN MED: Memant... DAILY PO 06/20/16 09:00 06/21/16 10:20 (Pill Splitter) 1 ea UNSCH PRN OTHER 06/19/16 16:15 Patient Own Medication PT OWN MED: Dextromethorphan HBr-Quinid... BID PO 06/20/16 21:00 06/21/16 10:21 Allergies Allergies Coded Allergies Sulfa (Unverified Allergy, Unknown, redness and swelling, 06/16/16) Exam I&O / VS 06/20/16 06/20/16 06/21/16 15:00 23:00 07:00 Intake Total 600 ml 360 ml 0 ml Balance 600 ml 360 ml 0 ml Intake Oral 600 ml 360 ml 0 ml # Voids 1 0 Vital Signs Date Time Temp Pulse Resp B/P Pulse Ox O2 Delivery O2 Flow Rate FiO2 06/21/16 06:34 98.1 69 17 142/69 99 06/20/16 17:17 97.6 98 18 133/82 Objective Micro and Labs Date/Time Procedure Status Source Growth 06/18/16 14:00 Urine Culture - Final Complete Urine Catheterized Urine Escherichia Coli Jayshree Escobar MD June 21, 2016 15:58
[2016-06-21 18:20] VITALS: BP 129/95; PULSE 105; RESP 17; TEMP 99.2
[2016-06-21] MEDS: ACETAMINOPHEN 325 MG TAB PO PRN (21:53)
[2016-06-21] MEDS: ATORVASTATIN 20 MG TAB PO SCH (21:53)
[2016-06-21] MEDS: diphenhydrAMINE HCL 50 MG CAP PO PRN (21:53)
[2016-06-21] MEDS: hydrOXYzine HCL 50 MG TAB PO PRN (21:53)
[2016-06-22] MEDS: CARBIDOPA/LEVODOPA 25 MG/100 MG TAB PO SCH ×3 (06:09→21:46)
[2016-06-22] MEDS: LEVOTHYROXINE SODIUM 75 MCG TAB PO SCH (06:09)
[2016-06-22 06:19] VITALS: BP 170/66; PULSE 91; RESP 17; TEMP 98; O2SAT 93
[2016-06-22] MEDS ORDERED: cloNIDine HCL 0.1 MG TAB PO PRN (08:15)
[2016-06-22] MEDS: MUPIROCIN 2% OINT 22 GM TUBE TOPICAL SCH ×2 (09:00→21:00)
[2016-06-22] MEDS: DEXTROMETHORPHAN HBR QUINIDINE PO SCH ×2 (09:00→21:00)
--- NOTE | 2016-06-22 09:19 | HHI.PYPN ---
Subjective Remarks Patient seen with nurse in weekend coverage. Chart reviewed. Case discussed with nursing staff reports that the patient remains quite confused. On my examination today, patient is oriented to person only. She says "I don't know what's going on." She is presently calm, but I note that she is somewhat tearful later on in the morning. She does complain of some abdominal discomfort and says that it has been some time since her last bowel movement. Last charted bowel movement was on 06/20. No urinary symptoms. No other physical complaints. No evident side effects from medications. Review of Systems ROS Limitations: Poor Historian Except as stated in HPI: all other systems reviewed are Neg Objective Alert: Yes [place]: Person Mood: Calm Affect: Labile (mild) Memory Intact: Comment (impaired) Hallucinations: Other (none) Delusions: No Delusion Type: Other (no evident delusions) Suicidal: Ideation (no SI voiced) Homicidal: Ideation (no HI voiced) Insight/Judgment Poor Remarks No motor abnormalities noted. Thought process somewhat disorganized consistent with dementia diagnosis. Labs Date/Time Procedure Status Source Growth 06/18/16 14:00 Urine Culture - Final Complete Urine Catheterized Urine Escherichia Coli Labs reviewed. Vitals/IOs Vital Signs Date Time Temp Pulse Resp B/P Pulse Ox O2 Delivery O2 Flow Rate FiO2 06/22/16 06:19 98.0 91 17 170/66 93 06/18/16 18:00 Room Air Intake and Output 06/21/16 06/21/16 06/22/16 08:00 16:00 00:00 Intake Total 0 ml 720 ml 480 ml Balance 0 ml 720 ml 480 ml Assessment & Plan Problem List: (1) Dementia ICD Code: F03.90 Assessment & Plan Add Colace for constipation. Request hospitalist follow up c/o abdominal discomfort. Continue psychotropics as ordered. Continue other medications and care as ordered. Justification for Cont. Inpt. High risk for decompensation in a less restrictive environment. Discharge Planning Per Dr. 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
[2016-06-22] MEDS: buPROPion HCL 150 MG SUSTAINED RELEASE TAB PO SCH (09:35)
[2016-06-22] MEDS: CYANOCOBALAMIN 1,000 MCG TAB PO SCH (09:35)
[2016-06-22] MEDS: HYDROCHLOROTHIAZIDE 25 MG TAB PO SCH (09:35)
[2016-06-22] MEDS: lamoTRIgine 100 MG TAB PO SCH ×2 (09:35→21:47)
[2016-06-22] MEDS: CHOLECALCIFEROL (VIT D3) 1000 UNIT TAB PO SCH (09:35)
[2016-06-22] MEDS: LACTOBACILLUS ACIDOPHILUS TAB PO SCH (09:35)
--- NOTE | 2016-06-22 13:07 | HHI.PR ---
Subjective Remarks Follow-up visit seizure, HTN, Parkinson's disease, hypothyroidism, questionable abdominal pain. Patient seen and examined today. Requested to see the patient secondary to abdominal pain. Patient states she is doing well. She has abdominal pain earlier but now it has disappeared. Denies any abdominal cramping, nausea, vomiting, diarrhea, constipation. Denies dysuria, hematuria, urgency, frequency. Denies chest pain, palpitations, dizziness, headaches. As per staff, patient has been eating well when prompted. She has not verbalized any abdominal pain. Objective Vitals Vital Signs Date Time Temp Pulse Resp B/P Pulse Ox O2 Delivery O2 Flow Rate FiO2 06/22/16 06:19 98.0 91 17 170/66 93 06/21/16 18:20 99.2 105 17 129/95 I/O 06/21/16 06/21/16 06/21/16 06/22/16 06/22/16 06/22/16 07:00 15:00 23:00 07:00 15:00 23:00 Intake Total 0 ml 720 ml 480 ml Balance 0 ml 720 ml 480 ml Intake Oral 0 ml 720 ml Oral Supplement 480 ml # Voids 0 Result Diagram: 06/18/16 1310 06/18/16 1655 Imaging Last Impressions Chest X-Ray 06/18/16 1305 Signed Impressions: Service Date/Time: Saturday, June 18, 2016 13:40 - CONCLUSION: No acute cardiopulmonary disease identified. Sheldon Dey MD Objective Remarks GENERAL: This is a well-nourished, well-developed patient, in no apparent distress. SKIN: Warm and dry HEENT: Normocephalic. Pupils equal round and reactive. Nose without bleeding. Airway patent. NECK: Trachea midline. No JVD. Supple. CARDIOVASCULAR: Regular rate and rhythm without murmurs, gallops, or rubs. RESPIRATORY: Clear to auscultation. Breath sounds equal bilaterally. No wheezes , rales, or rhonchi. GASTROINTESTINAL: Abdomen soft,nondistended. Bowel Sounds normoactive x4. Nontender to deep palpation. : Voiding without difficulty. MUSCULOSKELETAL: Extremities without clubbing, cyanosis, or edema. NEUROLOGICAL: Awake and alert. Oriented to person. No focal neuro deficit. Moves all extremities. Normal speech. A/P Problem List: (1) Dementia ICD Code: F03.90 Status: Acute (2) Bipolar disorder ICD Code: F31.9 Status: Acute Assessment and Plan Pleasant 66 yo F with PMH of HTN, HLD, dementia, Bipolar disorder, Parkinson's disease who came to the ED with family requesting placement in assisted living facility secondary to worsening dementia over the past 2 months. Dementia, psychosis, Bipolar disorder - Management per psychiatry HTN - restart home meds. Monitor BP and adjust as need. Hydrochlorothiazide 25 Mg PO DAILY HLD continue home meds - Atorvastatin 20 Mg PO HS Parkinson disease - continue Carbidopa-Levodopa 25-100 Mg Tab 1 Tab PO Q8HR. - Consult neurology. Patient is known to Dr. Evangelista who follows her as an outpatient. Seizures - Continue lamictal.seen by neurology - Seizure precaution Hypothyroidism - continue Levothyroxine 75 Mcg PO DAILY. TSH is normal. Protein calorie malnutrition, mild, BMI is 18.5 - Ensure to diet. Dietary consult. - Prealbumin 26 within normal Reported abdominal pain - Benign exam - Continue to monitor DVT ppx patient is ambulating Discussed with patient, nursing, Dr. 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
[2016-06-22 19:13] VITALS: BP 177/93; PULSE 101; TEMP 98.1; O2SAT 95
[2016-06-22] MEDS: ATORVASTATIN 20 MG TAB PO SCH (21:46)
[2016-06-22] MEDS: DOCUSATE SODIUM 100 MG CAP PO SCH (21:46)
[2016-06-23 05:39] VITALS: BP 163/79; PULSE 72; RESP 12; TEMP 97.5; O2SAT 98
[2016-06-23] MEDS: LEVOTHYROXINE SODIUM 75 MCG TAB PO SCH (05:58)
[2016-06-23] MEDS: CARBIDOPA/LEVODOPA 25 MG/100 MG TAB PO SCH ×3 (05:58→20:51)
[2016-06-23] MEDS: DEXTROMETHORPHAN HBR QUINIDINE PO SCH ×2 (08:52→20:50)
[2016-06-23] MEDS: DOCUSATE SODIUM 100 MG CAP PO SCH ×2 (08:54→20:50)
[2016-06-23] MEDS: CHOLECALCIFEROL (VIT D3) 1000 UNIT TAB PO SCH (08:54)
[2016-06-23] MEDS: LACTOBACILLUS ACIDOPHILUS TAB PO SCH (08:54)
[2016-06-23] MEDS: HYDROCHLOROTHIAZIDE 25 MG TAB PO SCH (08:54)
[2016-06-23] MEDS: buPROPion HCL 150 MG SUSTAINED RELEASE TAB PO SCH (08:54)
[2016-06-23] MEDS: lamoTRIgine 100 MG TAB PO SCH ×2 (08:54→20:51)
[2016-06-23] MEDS: CYANOCOBALAMIN 1,000 MCG TAB PO SCH (08:54)
[2016-06-23] MEDS: MUPIROCIN 2% OINT 22 GM TUBE TOPICAL SCH ×2 (09:00→20:51)
[2016-06-23] MEDS: LISINOPRIL 10 MG TAB PO SCH (09:00)
--- NOTE | 2016-06-23 12:01 | HHI.PYPN ---
Subjective Remarks She is seen for psychiatric reevaluation, Labile, irritable, reports good mood, disoriented in time and place, denies suicidal ideation, denies visual and auditory hallucinations. Compliant with her medications. Pacing the unit, but no restless. No agitation, no aggressive behavior reported. Objective Alert: Yes [place]: Person Mood: Calm Affect: Labile (mild) Memory Intact: Comment (impaired) Hallucinations: Other (none) Delusions: No Delusion Type: Other (no evident delusions) Suicidal: Ideation (no SI voiced) Homicidal: Ideation (no HI voiced) Insight/Judgment Poor Labs Date/Time Procedure Status Source Growth 06/18/16 14:00 Urine Culture - Final Complete Urine Catheterized Urine Escherichia Coli Vitals/IOs Vital Signs Date Time Temp Pulse Resp B/P Pulse Ox O2 Delivery O2 Flow Rate FiO2 06/23/16 05:39 97.5 72 12 163/79 98 Intake and Output 06/22/16 06/22/16 06/23/16 08:00 16:00 00:00 Intake Total 960 ml Balance 960 ml Assessment & Plan Problem List: (1) Dementia ICD Code: F03.90 Assessment & Plan Estimated LOS: days Justification for Cont. Inpt. 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
[2016-06-23 20:13] VITALS: BP 158/82; PULSE 70; RESP 16; TEMP 97.8; O2SAT 98
[2016-06-23] MEDS: NITROFURANTOIN MONOHYD MACROCR 100 MG CAP PO SCH (20:50)
[2016-06-23] MEDS: ATORVASTATIN 20 MG TAB PO SCH (20:51)
[2016-06-24 05:26] VITALS: BP 135/68; PULSE 81; RESP 18; TEMP 97.3
[2016-06-24 06:00] VITALS: BP 135/68; PULSE 81; RESP 18; TEMP 97.3; O2SAT 97
[2016-06-24] MEDS: LEVOTHYROXINE SODIUM 75 MCG TAB PO SCH (06:00)
[2016-06-24] MEDS: CARBIDOPA/LEVODOPA 25 MG/100 MG TAB PO SCH ×3 (06:00→21:48)
[2016-06-24] MEDS: HYDROCHLOROTHIAZIDE 25 MG TAB PO SCH (08:46)
[2016-06-24] MEDS: lamoTRIgine 100 MG TAB PO SCH ×2 (08:46→21:48)
[2016-06-24] MEDS: buPROPion HCL 150 MG SUSTAINED RELEASE TAB PO SCH (08:46)
[2016-06-24] MEDS: LACTOBACILLUS ACIDOPHILUS TAB PO SCH (08:46)
[2016-06-24] MEDS: CHOLECALCIFEROL (VIT D3) 1000 UNIT TAB PO SCH (08:46)
[2016-06-24] MEDS: CYANOCOBALAMIN 1,000 MCG TAB PO SCH (08:47)
[2016-06-24] MEDS: NITROFURANTOIN MONOHYD MACROCR 100 MG CAP PO SCH ×2 (08:47→17:12)
[2016-06-24] MEDS: DEXTROMETHORPHAN HBR QUINIDINE PO SCH ×3 (08:47→21:49)
[2016-06-24] MEDS: LISINOPRIL 10 MG TAB PO SCH (08:47)
[2016-06-24] MEDS: DOCUSATE SODIUM 100 MG CAP PO SCH ×2 (08:51→21:47)
[2016-06-24] MEDS: MUPIROCIN 2% OINT 22 GM TUBE TOPICAL SCH ×2 (08:52→21:00)
[2016-06-24] MEDS ORDERED: LORazepam 0.5 MG TAB PO PRN (12:15)
[2016-06-24] MEDS ORDERED: LORazepam 2 MG/ML VIAL IM PRN (12:15)
--- NOTE | 2016-06-24 16:25 | HHI.PYPN ---
Subjective Remarks Patient seen in day room with nurse [place], patient is confused at times somewhat intrusive admitted when necessary Ativan today however otherwise compliant medications without difficulty. For now continue treatment Review of Systems Except as stated in HPI: all other systems reviewed are Neg Objective Alert: Yes [place]: Person Mood: Calm Affect: Labile (mild) Memory Intact: Comment (impaired) Hallucinations: Other (none) Delusions: No Delusion Type: Other (no evident delusions) Suicidal: Ideation (no SI voiced) Homicidal: Ideation (no HI voiced) Insight/Judgment Very poor Vitals/IOs Vital Signs Date Time Temp Pulse Resp B/P Pulse Ox O2 Delivery O2 Flow Rate FiO2 06/24/16 06:00 97.3 81 18 135/68 97 Intake and Output 06/23/16 06/23/16 06/23/16 07:59 15:59 23:59 Intake Total 0 ml 480 ml 480 ml Balance 0 ml 480 ml 480 ml Assessment & Plan Problem List: (1) Dementia ICD Code: F03.90 Assessment & Plan Estimated LOS: days patient continues demented at times somewhat intrusive but redirectable. For now continue treatment Justification for Cont. Inpt. 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
[2016-06-24 19:30] VITALS: BP 155/71; PULSE 77; RESP 18; TEMP 98.1; O2SAT 96
[2016-06-24 19:36] VITALS: BP 151/72; PULSE 71; RESP 16; TEMP 97.9; O2SAT 95
[2016-06-24 19:52] VITALS: BP 155/71; PULSE 77; RESP 18; TEMP 98.1; O2SAT 96
[2016-06-24 20:30] VITALS: BP 155/71; PULSE 77; RESP 18; TEMP 98.1; O2SAT 96
[2016-06-24] MEDS: ATORVASTATIN 20 MG TAB PO SCH (21:48)
[2016-06-25 00:27] VITALS: BP 140/75; PULSE 66; TEMP 97.5
[2016-06-25 04:30] VITALS: BP 129/65; RESP 16; TEMP 97.1; O2SAT 93
[2016-06-25 05:09] VITALS: BP 129/65; RESP 16; TEMP 97.1; O2SAT 93
[2016-06-25] MEDS: LEVOTHYROXINE SODIUM 75 MCG TAB PO SCH (05:56)
[2016-06-25] MEDS: CARBIDOPA/LEVODOPA 25 MG/100 MG TAB PO SCH ×3 (05:56→21:37)
[2016-06-25] MEDS: MUPIROCIN 2% OINT 22 GM TUBE TOPICAL SCH ×2 (09:00→21:00)
[2016-06-25] MEDS: DEXTROMETHORPHAN HBR QUINIDINE PO SCH ×3 (09:00→21:00)
[2016-06-25] MEDS: buPROPion HCL 150 MG SUSTAINED RELEASE TAB PO SCH (09:22)
[2016-06-25] MEDS: lamoTRIgine 100 MG TAB PO SCH ×2 (09:23→21:37)
[2016-06-25] MEDS: HYDROCHLOROTHIAZIDE 25 MG TAB PO SCH (09:23)
[2016-06-25] MEDS: CHOLECALCIFEROL (VIT D3) 1000 UNIT TAB PO SCH (09:23)
[2016-06-25] MEDS: LISINOPRIL 10 MG TAB PO SCH (09:23)
[2016-06-25] MEDS: NITROFURANTOIN MONOHYD MACROCR 100 MG CAP PO SCH ×2 (09:23→17:24)
[2016-06-25] MEDS: LACTOBACILLUS ACIDOPHILUS TAB PO SCH (09:23)
[2016-06-25] MEDS: CYANOCOBALAMIN 1,000 MCG TAB PO SCH (09:23)
[2016-06-25] MEDS: DOCUSATE SODIUM 100 MG CAP PO SCH ×2 (09:24→21:37)
--- NOTE | 2016-06-25 13:19 | HHI.PYPN ---
Subjective Remarks Patient seen in dayroom with nurse Denise, patient continues markedly confused essentially all 4 spheres no behavioralproblemsatthistimewillrecheck UA atthistime Review of Systems Except as stated in HPI: all other systems reviewed are Neg Objective Alert: Yes [place]: Person Mood: Calm Affect: Labile (mild) Memory Intact: Comment (impaired) Hallucinations: Other (none) Delusions: No Delusion Type: Other (no evident delusions) Suicidal: Ideation (no SI voiced) Homicidal: Ideation (no HI voiced) Insight/Judgment Very poor Vitals/IOs Vital Signs Date Time Temp Pulse Resp B/P Pulse Ox O2 Delivery O2 Flow Rate FiO2 06/25/16 05:09 97.1 16 129/65 93 06/25/16 00:27 66 Intake and Output 06/24/16 06/24/16 06/24/16 07:59 15:59 23:59 Intake Total 0 ml 0 ml 1350 ml Balance 0 ml 0 ml 1350 ml Assessment & Plan Problem List: (1) Dementia ICD Code: F03.90 Assessment & Plan Estimated LOS: days patient remains confused demented, but no significant behavioral problems. Will recheck UA Justification for Cont. Inpt. 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
--- NOTE | 2016-06-25 13:27 | HHI.PR ---
Subjective Remarks Follow-up visit seizure, HTN, Parkinson's disease, hypothyroidism, questionable abdominal pain. Patient seen and examined today. Status post fall today secondary to unsteadiness of gait. Patient states she fell and brought her on her knees but her knees right now is not hurting. Denies pain and discomfort. Denies SOB/ dyspnea. Denies chest pain, palpitations, headaches, dizziness. Denies fevers, chills, n/v/d. Denies hematuria, dysuria. Objective Vitals Vital Signs Date Time Temp Pulse Resp B/P Pulse Ox O2 Delivery O2 Flow Rate FiO2 06/25/16 05:09 97.1 16 129/65 93 06/25/16 04:30 97.1 16 129/65 93 06/25/16 00:27 97.5 66 140/75 06/24/16 20:30 98.1 77 18 155/71 96 06/24/16 19:52 98.1 77 18 155/71 96 06/24/16 19:36 97.9 71 16 151/72 95 06/24/16 19:30 98.1 77 18 155/71 96 I/O 06/24/16 06/24/16 06/24/16 06/25/16 06/25/16 06/25/16 07:00 15:00 23:00 07:00 15:00 23:00 Intake Total 0 ml 0 ml 1350 ml 30 ml Balance 0 ml 0 ml 1350 ml 30 ml Intake Oral 0 ml 0 ml 1350 ml 30 ml # Voids 1 2 1 Imaging Last Impressions Chest X-Ray 06/18/16 1305 Signed Impressions: Service Date/Time: Saturday, June 18, 2016 13:40 - CONCLUSION: No acute cardiopulmonary disease identified. Sheldon Dye MD Objective Remarks GENERAL: This is a well-nourished, well-developed patient, in no apparent distress. SKIN: Warm and dry HEENT: Normocephalic. Pupils equal round and reactive. Nose without bleeding. Airway patent. NECK: Trachea midline. No JVD. Supple. CARDIOVASCULAR: Regular rate and rhythm without murmurs, gallops, or rubs. RESPIRATORY: Clear to auscultation. Breath sounds equal bilaterally. No wheezes , rales, or rhonchi. GASTROINTESTINAL: Abdomen soft,nondistended. Bowel Sounds normoactive x4. Nontender to palpation. MUSCULOSKELETAL: Extremities without clubbing, cyanosis, or edema. NEUROLOGICAL: Awake and alert. Oriented to person. No focal neuro deficit. Moves all extremities. Unsteady gait. Normal speech. A/P Problem List: (1) Dementia ICD Code: F03.90 Status: Acute (2) Bipolar disorder ICD Code: F31.9 Status: Acute Assessment and Plan Pleasant 66 yo F with PMH of HTN, HLD, dementia, Bipolar disorder, Parkinson's disease who came to the ED with family requesting placement in assisted living facility secondary to worsening dementia over the past 2 months. Dementia, psychosis, Bipolar disorder - Management per psychiatry HTN - restart home meds. Monitor BP and adjust as need. Hydrochlorothiazide 25 Mg PO DAILY - Clonidine when necessary HLD continue home meds - Atorvastatin 20 Mg PO HS Parkinson disease - continue Carbidopa-Levodopa 25-100 Mg Tab 1 Tab PO Q8HR. - Consult neurology. Patient is known to Dr. Evangelista who follows her as an outpatient. Seen by Dr. Escobar, recommends continued psych care and seizure medication with outpatient follow-up with Dr. Evangelista. - Increased risk for falls. Monitor for pain. If patient complains of knee pain, may warrant doing x-ray. Seizures - Continue lamictal.seen by neurology - Seizure precaution Hypothyroidism - continue Levothyroxine 75 Mcg PO DAILY. TSH is normal. Protein calorie malnutrition, mild, BMI is 18.5 - Ensure to diet. Dietary consult. - Prealbumin 26 within normal Urinary tract infection - Cultures came back <10K E.Coli, 10-50K mixed gram-positive juan f - Patient started Macrobid x5 days - Encourage by mouth fluid hydration - Denies any symptomatology DVT ppx patient is ambulating Discussed with patient, nursing, Dr. 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
[2016-06-25 19:32] VITALS: BP 147/70; PULSE 89; RESP 16; TEMP 97.7; O2SAT 94
[2016-06-25] MEDS: ATORVASTATIN 20 MG TAB PO SCH (21:37)
[2016-06-25] MEDS: MEMANTINE HCL 10 MG TAB PO SCH (21:37)
[2016-06-25 22:43] VITALS: BP 128/58; PULSE 77; RESP 18; TEMP 97.7; O2SAT 97
[2016-06-26 05:34] VITALS: BP 185/72; PULSE 79; RESP 16; TEMP 97.8; O2SAT 99
[2016-06-26] MEDS: LEVOTHYROXINE SODIUM 75 MCG TAB PO SCH (05:53)
[2016-06-26] MEDS: CARBIDOPA/LEVODOPA 25 MG/100 MG TAB PO SCH ×3 (05:53→21:12)
[2016-06-26] MEDS: DEXTROMETHORPHAN HBR QUINIDINE PO SCH ×2 (09:00→21:00)
--- NOTE | 2016-06-26 09:32 | HHI.PYPN ---
Subjective Remarks Patient seen in day room with nurse Alicia, chart review, patient calm pleasantly confused though needing encouragement for compliance with medication. Patient is still somewhat unstable on her feet has had falls leading to some skin tears on her right knee and her left forearm that been dressed and treated. Patient scheduled for [facility] tomorrow Review of Systems Except as stated in HPI: all other systems reviewed are Neg Objective Alert: Yes [place]: Person Mood: Calm Affect: Labile (mild) Memory Intact: Comment (impaired) Hallucinations: Other (none) Delusions: No Delusion Type: Other (no evident delusions) Suicidal: Ideation (no SI voiced) Homicidal: Ideation (no HI voiced) Insight/Judgment Very poor Vitals/IOs Vital Signs Date Time Temp Pulse Resp B/P Pulse Ox O2 Delivery O2 Flow Rate FiO2 06/26/16 05:34 97.8 79 16 185/72 99 Intake and Output 06/25/16 06/25/16 06/26/16 08:00 16:00 00:00 Intake Total 30 ml 990 ml Balance 30 ml 990 ml Assessment & Plan Problem List: (1) Dementia ICD Code: F03.90 Assessment & Plan Estimated LOS: days patient continues demented confused needing redirection and encouragement for compliance. Patient scheduled for [facility] tomorrow Justification for Cont. Inpt. 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
[2016-06-26] MEDS: NITROFURANTOIN MONOHYD MACROCR 100 MG CAP PO SCH ×2 (09:47→17:27)
[2016-06-26] MEDS: buPROPion HCL 150 MG SUSTAINED RELEASE TAB PO SCH (09:47)
[2016-06-26] MEDS: HYDROCHLOROTHIAZIDE 25 MG TAB PO SCH (09:47)
[2016-06-26] MEDS: CYANOCOBALAMIN 1,000 MCG TAB PO SCH (09:47)
[2016-06-26] MEDS: DOCUSATE SODIUM 100 MG CAP PO SCH ×2 (09:47→21:12)
[2016-06-26] MEDS: LISINOPRIL 10 MG TAB PO SCH (09:47)
[2016-06-26] MEDS: LACTOBACILLUS ACIDOPHILUS TAB PO SCH (09:47)
[2016-06-26] MEDS: CHOLECALCIFEROL (VIT D3) 1000 UNIT TAB PO SCH (09:47)
[2016-06-26] MEDS: lamoTRIgine 100 MG TAB PO SCH ×2 (09:47→21:12)
[2016-06-26] MEDS: MUPIROCIN 2% OINT 22 GM TUBE TOPICAL SCH ×2 (09:48→21:00)
[2016-06-26] MEDS: MEMANTINE HCL 10 MG TAB PO SCH ×2 (09:48→21:12)
[2016-06-26 16:00] VITALS: BP 113/79; PULSE 88; RESP 16; TEMP 97.9; O2SAT 95
[2016-06-26] MEDS: ATORVASTATIN 20 MG TAB PO SCH (21:12)
[2016-06-27 05:27] VITALS: BP 118/61; PULSE 70; RESP 18; TEMP 97.6
[2016-06-27] MEDS: CARBIDOPA/LEVODOPA 25 MG/100 MG TAB PO SCH ×2 (05:44→13:46)
[2016-06-27] MEDS: LEVOTHYROXINE SODIUM 75 MCG TAB PO SCH (05:44)
[2016-06-27] MEDS: HYDROCHLOROTHIAZIDE 25 MG TAB PO SCH (09:59)
[2016-06-27] MEDS: DOCUSATE SODIUM 100 MG CAP PO SCH ×2 (09:59→10:30)
[2016-06-27] MEDS: LACTOBACILLUS ACIDOPHILUS TAB PO SCH (10:00)
[2016-06-27] MEDS: lamoTRIgine 100 MG TAB PO SCH (10:01)
[2016-06-27] MEDS: MEMANTINE HCL 10 MG TAB PO SCH (10:03)
[2016-06-27] MEDS: LISINOPRIL 10 MG TAB PO SCH (10:03)
[2016-06-27] MEDS: NITROFURANTOIN MONOHYD MACROCR 100 MG CAP PO SCH (10:03)
[2016-06-27] MEDS: CHOLECALCIFEROL (VIT D3) 1000 UNIT TAB PO SCH (10:06)
[2016-06-27] MEDS: CYANOCOBALAMIN 1,000 MCG TAB PO SCH (10:06)
[2016-06-27] MEDS: buPROPion HCL 150 MG SUSTAINED RELEASE TAB PO SCH (10:07)
[2016-06-27] MEDS ORDERED: LACT PO (10:18)
[2016-06-27] MEDS ORDERED: MACR100C2 PO (10:18)
[2016-06-27] MEDS ORDERED: HYDR25TA5 PO (10:18)
[2016-06-27] MEDS ORDERED: MUPI2OIN TOPICAL (10:18)
[2016-06-27] MEDS ORDERED: NAME10TA PO (10:18)
[2016-06-27] MEDS ORDERED: BUPR150CR PO (10:18)
[2016-06-27] MEDS ORDERED: ATOR20TA15 PO (10:18)
[2016-06-27] MEDS ORDERED: DOCU1CAP39 PO (10:18)
[2016-06-27] MEDS ORDERED: LISI10TA3 PO (10:18)
[2016-06-27] MEDS ORDERED: VITA100018 PO (10:18)
[2016-06-27] MEDS ORDERED: VITA10002 PO (10:18)
[2016-06-27] MEDS ORDERED: LAMO100 PO (10:18)
[2016-06-27] MEDS ORDERED: CARB25TA9 PO (10:18)
[2016-06-27] MEDS ORDERED: LEVO.075 PO (10:18)
--- NOTE | 2016-06-27 10:26 | HHI.DS ---
Psychiatry Discharge Summary Inpatient Psychiatric care?: Yes Advance Directive: Yes Mental Health AdvanceDirective: No Health Care Proxy: Yes Admission Admission Date June 18, 2016 at 18:33 Admission Diagnosis: (1) Dementia ICD Code: F03.[address] Patrick's H&P: Patient is 66-year-old white female who comes here under [place] dated June 18, 2016 3:30 signed by Jazmine Hernandez anti-VEGETABLE TIER certificate reviewed essentially stating bipolar disorder dementia Alzheimer's wandering looking for a knife to hurt himself refusing medication. Patient is seen screened in the ED. Medically cleared. Of interest patient was seen here also on 06/16 being brought in by her family concerns about her deterioration in behavior related to her significant dementing process. Family at that time declined admission, wanted to try medication. At that time the patient was given given Ativan and Haldol. Family returned to the ED with this visit due to patient's continuing deteriorating behavior. It also appears that her PCP and her neurologist also declined to make appropriate referrals for a possible placement in the secure facility. It appears the family has found a secure facility with the facility requested that the family bring the patient back here for medication stabilization prior to admission to that facility. Patient also has a history of bipolar disorder and seizure disorder. She does see Dr. Evangelista for her seizure disorder. It appears patient's behavior became more severe threatening at home with wandering exits seeking going out onto the balcony of the fourth floor apartment and attempting to get some type of weapon perhaps to harm herself or others to the point where her felt unsafe for himself and that situation. Patient seen in her room with floor staff she is a thin slight slender lady with shortcut fernández hair appears stated age. She is diffusely confused in all 4 spheres does not remember her place level of education. She is vague about whether her parents are alive or though she feels they're alive. It appears she has some minimal insight into the degree of her memory difficulties. She does acknowledge a history of bipolar disorder it appears she has had hospitalizations for that in the past along with ECT treatment in the past. There is no history of seizure disorder being treated by Dr. Evangelista who we will have consult with us. At this time patient does meet criteria for acute involuntary psychiatric hospitalization under the [place] I'll do first opinion requests second opinion, I feel she does not have capacity, I will ask for healthcare surrogate and guardian advocate. Will have hospitalist consult was along with Dr. Evangelista. We'll of counselor contact patient's to arrange a meeting for tomorrow morning about 11 AM. Continue her medications per med reconciliation though will refrain from any Haldol for benzodiazepine and to a talk with family about medication options On my examination today: Patient seen and examined. Chart reviewed. Case discussed with nursing staff. On my examination today, the patient presents as quite confused. See full mental status testing below. She is presently calm and affect is generally euthymic. She tells me "my brother is a flori person." She denies any suicidal or homicidal ideation. She denies any audiovisual hallucinations. Psychiatric interview was quite limited because of the patient's degree of cognitive impairment Past psychiatric history: Patient is likely an unreliable historian. She does describe a history of psychiatric admissions but cannot recall where or when. She denies any history of suicide attempts. Family history: Patient denies any family history of mental illness. Chemical dependency history: Patient denies any abuse of drugs or alcohol. Social history: Patient does recall that she is and has 2 children. 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 She denies any or legal history. Tobacco Use In Past 30 Days: No Tobacco Past 30 Days Alcohol Use: Monthly or Less Hospital Course hospital course was noticeable for her dementia, cognitive deficits, confusion and wandering at times showing some mild irritability towards late afternoon into the evening. Otherwise patient no behavioral problems. Is been compliant with medications. There is a bed available today at [facility]. this morning [place] [address]. While patient's case was continue the patient will be discharged today to [facility]. Rx 1 month. Follow-up mental health services to that facility Results Blood Pressure 118 / 61 Vital Signs Date Time Temp Pulse Resp B/P Pulse Ox O2 Delivery O2 Flow Rate FiO2 06/27/16 05:27 97.6 70 18 118/61 06/26/16 16:00 95 Patient did have a UTI which was treated Summary of Procedures None done Imaging Last Impressions Chest X-Ray 06/18/16 1305 Signed Impressions: Service Date/Time: Saturday, June 18, 2016 13:40 - CONCLUSION: No acute cardiopulmonary disease identified. Sheldon Dey MD Pending results at discharge: No Medications # of Antipsychotic meds at D/C: 0 Approp Antipsych med options 1 - Minimum of three failed multiple trials of monotherapy. 2 - Documented plan to taper to monotherapy due to previous use of multiple meds OR cross-taper in progress at D/C. 3 - Documentation of augmentation of Clozapine. 4 - Justification other than those listed in allowable values 1-3, document here : Discharge Discharge Date: June 27, 2016 Discharge Diagnosis: (1) Dementia Diagnosis: Principal ICD Code: F03.90 Mental Status Exam at Disch Alert diffusely confused white female appears stated age. She is normoactive. Affect Show slight decrease range intensity mood is euthymic. Speech rate and rhythm are within normal limits is markedly tangential and circumstantial to disorganized. No auditory or visual hallucinations no delusions noted insight and judgment is quite poor cognition is limited Pt Condition on Discharge: Stable Discharge Disposition: Discharge to SNF Discharge Instructions Diet Instructions: As Tolerated, No Restrictions Activities you can perform: Regular-No Restrictions Scheduled Appointment: [facility] and rehabilitation Discharge Time > 30 minutes Discharge/Advance Care Plan Health Problems: (1) Dementia Goals to promote your health * To prevent worsening of your condition and complications * To maintain your health at the optimal level Directions to meet your goals Take your medications as prescribed Follow your dietary instruction Follow activity as directed Keep your appointments as scheduled Take your immunizations and boosters as scheduled If your symptoms worsen call your PCP, if no PCP go to Urgent Care Center or Emergency Room For 02/09 questions related to your inpatient stay or results of tests pending at discharge, please contact Dr. Sanchez Patrick at Smoking is Dangerous to Your Health. 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
[2016-06-27] MEDS: MUPIROCIN 2% OINT 22 GM TUBE TOPICAL SCH (10:30)
[2016-06-27] MEDS: DEXTROMETHORPHAN HBR QUINIDINE PO SCH (10:31)
== END 2016-06-27 14:35 | DRG 57 ==
LOC: NEPE 12:39 → NEDA 18:33 → H250 18:45
PROVIDERS: ADMIT Psychiatry & Neurology Psychiatry; ATTEND Psychiatry & Neurology Psychiatry
DX: G30.0 Alzheimer's disease with early onset (principal); F02.81 Dementia in other diseases classified elsewhere, unspecified severity, with behavioral disturbance; G20 Parkinson's disease; E44.1 Mild protein-calorie malnutrition; N39.0 Urinary tract infection, site not specified; Z68.1 Body mass index [BMI] 19.9 or less, adult; F31.70 Bipolar disorder, currently in remission, most recent episode unspecified; G40.909 Epilepsy, unspecified, not intractable, without status epilepticus; F29 Unspecified psychosis not due to a substance or known physiological condition; E03.9 Hypothyroidism, unspecified; E78.5 Hyperlipidemia, unspecified; I10 Essential (primary) hypertension; K59.00 Constipation, unspecified; Z79.899 Other long term (current) drug therapy; Z91.81 History of falling
CPT/HCPCS: 71010; 80048; 80061; 81001; 83036; 84134; 84443; 85025; 87077; 87086; 87186; 99284; Q0163

== ENCOUNTER 2016-07-28 09:24 | Inpatient (IN) | payer MEDICARE, OTHER ==
[2016-07-28] VITALS (31 sets, daily range): BP systolic 72–150; BP diastolic 47–77; PULSE 63–125; RESP 13–27; TEMP 98.3–102.3; O2SAT 94–100
[~2016-07-28] VITALS: Ht 154.9 cm; Wt 55.4 kg
[~2016-07-28 09:24] MED LIST changes: +BUPR150CR PO; -BUPR1TAB29 PO; -CHOL100025 CHEW; -DICY20TA10 PO; +DOCU1CAP39 PO; -HALO2TAB PO; +LACT PO; +LAMO100 PO; -LAMO100T PO; +LEVO.075 PO; -LEVO75TA3 PO; +LISI10TA3 PO; +MACR100C2 PO; -MEMA28CA PO; +MUPI2OIN TOPICAL; +NAME10TA PO; +NUED20CA PO; +VITA100018 PO; +VITA10002 PO; -VITATAB43 PO
[2016-07-28] MEDS ORDERED: PIPERACIL-TAZO 4.5 GM PREMIX 100 ML IV STA (09:34)
[2016-07-28] MEDS ORDERED: SODIUM CHLOR 0.9% 1000 ML INJ 1,000 ML IV ONE ×2 (09:34)
[2016-07-28] MEDS ORDERED: VANCOMYCIN INJ 1,000 MG in SODIUM CHLOR 0.9% 250 ML INJ 250 ML IV STA (09:34)
[2016-07-28] MEDS ORDERED: SODIUM CHLOR 0.9% 1000 ML INJ 400 ML IV ONE (09:34)
--- NOTE | 2016-07-28 09:37 | PD ---
HPI Chief Complaint: Altered Mental Status Time Seen by Provider: 09:34 Travel History International Travel<30 days: No Contact w/Intl Traveler<30days: No Traveled to known affect area: No History of Present Illness HPI 66-year-old female came to the emergency room brought by [facility] for altered mental status. Patient is unable to give any meaningful history. She is a full code [facility] per the [facility]. As per EMS she was getting [facility] at the [facility]. History is limited from the patient. Currently there is no family member with her. She had a blood pressure of 95 systolic as per EMS. Blood sugar was within normal range. As soon as patient arrived her heart rate was in 120s and rectal temperature was 102.3. She had her eyes open and looked at me when I called her name but was nonverbal. History Past Medical History Narrative Medical List of her past medical, surgical, social and family history was reviewed from the nursing note. Menopausal: Yes Social History Alcohol Use: Yes (wine wtih dinner) Tobacco Use: No Allergies-Medications (Allergen,Severity, Reaction): Coded Allergies: Sulfa (Unverified Allergy, Unknown, redness and swelling, 06/16/16) Comments List of her allergies reviewed from the nursing note. Reported Meds & Prescriptions Reported Meds & Active Scripts Active Macrobid (Nitrofurantoin Monoh/Nitrofur Macro) 100 Mg Cap 100 Mg PO BIDPC Mupirocin Topical (Mupirocin) 2 % Oint 1 Applic TOPICAL BID Namenda (Memantine) 10 Mg Tab 10 Mg PO BID Lisinopril 10 Mg Tab 10 Mg PO DAILY Synthroid (Levothyroxine Sodium) 75 Mcg Tab 75 Mcg PO DAILY@0600 Lamictal (Lamotrigine) 100 Mg Tab 200 Mg PO 2 BID Acidophilus/l-Sporogenes (Lactobacillus Acidophilus) 1 Tab Tab 1 Tab PO DAILY Hydrochlorothiazide 25 Mg Tab 25 Mg PO DAILY Dok (Docusate Sodium) 100 Mg Cap 100 Mg PO BID Vitamin B-12 (Cyanocobalamin) 1,000 Mcg Tab 1,500 Mcg PO 1-1/2 DAILY Vitamin D3 (Cholecalciferol) 1,000 Unit Tab 1,000 Units PO DAILY Carbidopa-Levodopa 25-100 Mg Tab 1 Tab PO Q8HR Wellbutrin SR 12 HR (Bupropion HCl) 150 Mg Tab 300 Mg PO 2 AM Atorvastatin (Atorvastatin Calcium) 20 Mg Tab 20 Mg PO HS Ativan (Lorazepam) 0.5 Mg Tab 0.5 Mg PO Q4H PRN Bactroban Topical (Mupirocin) 2% Oint 1 Appl TOPICAL BID 14 Days Reported Nuedexta 20-10 mg (Dextromethorphan HBr-Quinidine) 1 Cap Cap 1 Cap PO BID Relpax (Eletriptan) 40 Mg Tab 40 Mg PO ONCE PRN Meloxicam 15 Mg Tab 15 Mg PO DAILY PRN Sumatriptan (Sumatriptan Succinate) 100 Mg Tab 100 Mg PO ONCE PRN If a satisfactory response has not been obtained at 2 hours, a second dose may be administered Alendronate (Alendronate Sodium) 70 Mg Tab 70 Mg PO Q7D ON MONDAYS Narrative Medication List of her home medications reviewed from the nursing note. Review of Systems Except as stated in HPI: all other systems reviewed are Neg Physical Exam Narrative GENERAL: Nonverbal, altered mental status, moderate distress SKIN: Focused skin assessment warm/dry. HEAD: Atraumatic. Normocephalic. EYES: Pupils equal and round. No scleral icterus. No injection or drainage. ENT: No nasal bleeding or discharge. Dry mucous membrane NECK: Trachea midline. No JVD. CARDIOVASCULAR: Regular rate and rhythm. Tachycardia. No murmur appreciated. RESPIRATORY: No accessory muscle use. Clear to auscultation. Breath sounds equal bilaterally. GASTROINTESTINAL: Abdomen soft, non-tender, nondistended. Hepatic and splenic margins not palpable. MUSCULOSKELETAL: No obvious deformities. No clubbing. No cyanosis. No edema. Contracture of bilateral upper extremities. NEUROLOGICAL: GCS of 11 mostly because of being nonverbal. PSYCHIATRIC: Unable to assess. Data Data Last Documented VS Vital Signs Date Time Temp Pulse Resp B/P Pulse Ox O2 Delivery O2 Flow Rate FiO2 07/28/16 11:42 84 16 78/52 94 07/28/16 11:11 Nasal Cannula 3 07/28/16 09:27 102.3 Orders Complete Blood Count With Diff (07/28/16 09:34) Comprehensive Metabolic Panel (07/28/16 09:34) Lactic Acid Sepsis Protocol (07/28/16 09:34) Urinalysis - C+S If Indicated (07/28/16 09:34) Blood Culture (07/28/16 09:34) Chest, Single Ap (07/28/16 09:34) Blood Glucose (07/28/16 09:34) Ecg Monitoring (07/28/16 09:34) Iv Access Insert/Monitor (07/28/16 09:34) Oximetry (07/28/16 09:34) Oxygen Administration (07/28/16 09:34) Vancomycin Inj (Vancomycin Inj) (07/28/16 09:34) Piperacil-Tazo 4.5 Gm Premix (Zosyn 4.5 (07/28/16 09:34) Sodium Chlor 0.9% 1000 Ml Inj (Ns 1000 M (07/28/16 09:34) Sodium Chlor 0.9% 1000 Ml Inj (Ns 1000 M (07/28/16 09:34) Sodium Chlor 0.9% 1000 Ml Inj (Ns 1000 M (07/28/16 09:34) Acetaminophen Supp (Tylenol Supp) (07/28/16 09:45) Ct Brain W/O Iv Contrast(Rout) (07/28/16 ) Electrocardiogram (07/28/16 09:34) Urine Culture (07/28/16 10:00) Admit To Inpatient (07/28/16 ) Code Status (07/28/16 11:30) Pulmonary Physician / Telemetry DIANA.Q8H (07/28/16 11:30) Diet Npo Except Meds (07/28/16 Lunch) Sodium Chloride 0.9% Flush (Ns Flush) (07/28/16 11:30) Sodium Chloride 0.9% Flush (Ns Flush) (07/28/16 21:00) Hydrocortisone Inj (Solucortef Inj) (07/28/16 12:00) Pantoprazole Inj (Protonix Inj) (07/29/16 09:00) Albuterol-Ipratropium Neb (Duoneb Neb) (07/28/16 16:00) Consult Pt Eval & Treat (07/28/16 11:30) Ot Request For Service (07/28/16 11:30) Vancomycin Consult Pharmacy (Vancomycin (07/28/16 11:30) ^ Initiate Protocol (07/28/16 11:30) Instruction (07/28/16 11:30) Mrsa Pcr Surveillance (07/28/16 11:30) Inpatient Certification (07/28/16 ) Terbutaline Inj (Brethine Inj) (07/28/16 11:45) Phenylephrine Inj (Neosynephrine Inj) (07/28/16 11:45) Admit To Inpatient (07/28/16 ) Vital Signs (Adult) DIANA.Q1H (07/28/16 11:33) Activity Bed Rest (07/28/16 11:33) ^ Elevate Head Of Bed (07/28/16 11:33) Neuro Checks . ORDERED (07/28/16 11:33) Intake + Output Q1H (07/28/16 11:33) Bedside Glucose DIANA.BGM (07/28/16 11:33) Sodium Chlor 0.9% 1000 Ml Inj (Ns 1000 M (07/28/16 11:33) Sodium Chloride 0.9% Flush (Ns Flush) (07/28/16 11:45) Sodium Chloride 0.9% Flush (Ns Flush) (07/28/16 21:00) Acetaminophen (Tylenol) (07/28/16 11:45) Acetamin-Hydrocod 325-5 Mg (Mio 5-325 (07/28/16 11:45) Morphine Inj (Morphine Inj) (07/28/16 11:45) Artificial Tears Opth Soln (Tears Natura (07/28/16 13:00) Ondansetron Inj (Zofran Inj) (07/28/16 11:45) Albuterol Neb (Albuterol Neb) (07/28/16 11:45) Complete Blood Count With Diff (07/29/16 04:00) Comprehensive Metabolic Panel (07/29/16 04:00) Creatine Kinase (Cpk) (07/28/16 11:33) Troponin I (07/28/16 11:33) Troponin I (07/28/16 17:33) Act Partial Throm Time (Ptt) (07/29/16 04:00) Prothrombin Time / Inr (Pt) (07/29/16 04:00) Magnesium (Mg) (07/29/16 04:00) Phosphorus (Po4) (07/29/16 04:00) Lactic Acid (07/29/16 04:00) Arterial Blood Gas (Abg) (07/28/16 ) Pulmonary Physician / Telemetry DIANA.Q8H (07/28/16 11:33) Scd Bilateral/Knee High DIANA.BID (07/28/16 11:33) Pharmacologic Contraindication (07/28/16 11:33) ^ Initiate Protocol (07/28/16 11:33) Instruction (07/28/16 11:33) [facility] Nursing Information (07/28/16 11:45) Chlorhexidine 2% Cloth (Chlorhexidine 2% (07/29/16 04:00) Chlorhexidine 2% Cloth (Chlorhexidine 2% (07/28/16 11:45) Docusate Sodium-Senna (Gaviota-Colace) (07/28/16 21:00) Magnesium Hydroxide Liq (Milk Of Magnesi (07/28/16 11:45) Sennosides (Senokot) (07/28/16 11:45) Bisacodyl Supp (Dulcolax Supp) (07/28/16 11:45) Lactulose Liq (Lactulose Liq) (07/28/16 11:45) Inpatient Certification (07/28/16 ) Admit Order (Ed Use Only) (07/28/16 ) CKMB (07/28/16 17:00) CKMB% (07/28/16 17:00) Labs Laboratory Tests Test 07/28/16 07/28/16 09:41 10:00 Sodium Level 142 MEQ/L Potassium Level 3.7 MEQ/L Chloride Level 103 MEQ/L Carbon Dioxide Level 28.4 MEQ/L Anion Gap 11 MEQ/L Blood Urea Nitrogen 44 MG/DL Creatinine 2.10 MG/DL Estimat Glomerular Filtration 23 ML/MIN Rate Random Glucose 97 MG/DL Lactic Acid Level 4.5 mmol/L Calcium Level 9.6 MG/DL Total Bilirubin 0.5 MG/DL Aspartate Amino Transf 40 U/L (AST/SGOT) Alanine Aminotransferase 28 U/L (ALT/SGPT) Alkaline Phosphatase 46 U/L Total Protein 6.4 GM/DL Albumin 2.9 GM/DL White Blood Count 25.5 TH/MM3 Red Blood Count 4.78 MIL/MM3 Hemoglobin 13.8 GM/DL Hematocrit 42.4 % Mean Corpuscular Volume 88.7 FL Mean Corpuscular Hemoglobin 28.9 PG Mean Corpuscular Hemoglobin 32.5 % Concent Red Cell Distribution Width 13.0 % Platelet Count 276 TH/MM3 Mean Platelet Volume 8.5 FL Neutrophils (%) (Auto) 95.6 % Lymphocytes (%) (Auto) 1.2 % Monocytes (%) (Auto) 3.1 % Eosinophils (%) (Auto) 0.0 % Basophils (%) (Auto) 0.1 % Neutrophils # (Auto) 24.4 TH/MM3 Lymphocytes # (Auto) 0.3 TH/MM3 Monocytes # (Auto) 0.8 TH/MM3 Eosinophils # (Auto) 0.0 TH/MM3 Basophils # (Auto) 0.0 TH/MM3 CBC Comment DIFF FINAL Differential Comment Urine Random Creatinine 86.4 MG/DL Urine Random Sodium 81 MEQ/L Urine Color YELLOW Urine Turbidity HAZY Urine pH 6.0 Urine Specific [place] 1.013 Urine Protein 30 mg/dL Urine Glucose (UA) NEG mg/dL Urine Ketones NEG mg/dL Urine Occult Blood TRACE Urine Nitrite NEG Urine Bilirubin NEG Urine Urobilinogen LESS THAN 2.0 MG/DL Urine Leukocyte Esterase MOD Urine RBC 2 /hpf Urine WBC 35 /hpf Urine Squamous Epithelial <1 /hpf Cells Urine Bacteria MANY /hpf Microscopic Urinalysis Comment CATH-CULTURE IND MDM Medical Decision Making Medical Screen Exam Complete: Yes Emergency Medical Condition: Yes Medical Record Reviewed: Yes Interpretation(s) Twelve-lead EKG was reviewed by me. Normal sinus rhythm, normal axis, tachycardia, nonspecific ST-T wave changes. Heart rate of 126 bpm. Differential Diagnosis Sepsis, UTI, pneumonia, intracranial bleed Narrative Course 11:30 AM patient is significantly hypotensive and very fluid dependent. She has received so far 3 L of IV fluid in each time the fluid is done patient's blood pressure drops down to the 70s. She has UTI. GCS has remained stable without decline in her improvement. Her is here who gives some additional history and says that she has dementia and was hospitalized recently and then sent to the rehabilitation. Since past Friday she has been slowly gradually declining. He requested her to be sent here. They have been for 46 years he said and he knows her very well. Patient was given IV antibiotics and fluids as per the sepsis protocol. I spoke with the assistant program director who would take the patient upstairs. Patient is on to her fourth liter bolus. Urine looks grossly infected and samra pyuria and UA is positive for UTI. Heart rate has come down to the 80s and her temperature is below 100. Critical Care Narrative Aggregate critical care time was 60 minutes. Time to perform other separately billable procedures was not included in the critical care time. My time did not include minutes spent treating any other patients simultaneously or on activities that did not directly contribute to the patient's treatment. The services I provided to this patient were to treat and/or prevent clinically significant deterioration that could result in: Septic shock, septic shock protocol, fluid resuscitation I provided critical care services requiring my management, as noted below: Chart data review, documentation time, medication orders and management, vital sign assessments/reviewing monitor data, ordering and reviewing lab tests, ordering and interpreting/reviewing x-rays and diagnostic studies, care of the patient and discussion of the patient with the admitting physicians. Procedures EKG Prior to Arrival: No Physician Communication Physician Communication Dr. Roldan Diagnosis Primary Impression: Septic shock Additional Impressions: Altered mental status Qualified Code: R40.1 - Stupor UTI (urinary tract infection) Qualified Code: N39.0 - Urinary tract infection without hematuria, site unspecified Admitting Information Admitting Physician Requests: it Sunshine Keith MD Jul 28, 2016 09:37
[2016-07-28] MEDS ORDERED: ACETAMINOPHEN 650 MG SUPP RECTAL ONE (09:45)
[2016-07-28 10:23] LABS: AUTOMATED NEUTROPHIL # 24.4 TH/MM3 (1.8-7.7); BASOPHIL % 0.1 % (0.0-2.0); HEMATOCRIT 42.4 % (35.0-46.0); HEMO FLAGS DIFF FINAL; LYMPH % 1.2 % (9.0-44.0); LYMPHOCYTE # 0.3 TH/MM3 (1.0-4.8); MEAN CELL VOLUME 88.7 FL (80.0-100.0); MEAN CORPUSCULAR HEMOGLOBIN 28.9 PG (27.0-34.0); MEAN CORPUSCULAR HGB CONC 32.5 % (32.0-36.0); MONO % 3.1 % (0.0-8.0); NEUT % 95.6 % (16.0-70.0); PLATELET COUNT 276 TH/MM3 (150-450); RED BLOOD COUNT 4.78 MIL/MM3 (4.00-5.30); WHITE BLOOD COUNT 25.5 TH/MM3 (4.0-11.0)
--- NOTE | 2016-07-28 10:29 | RADRPT ---
EXAM DATE/TIME: 07/28/2016 10:03 [facility] COMPARISON: No previous studies available for comparison. INDICATIONS : Altered mental status. RADIATION DOSE: 56.35 CTDIvol (mGy) MEDICAL HISTORY : Seizures. Dementia. Alzheimers. SURGICAL HISTORY : None. ENCOUNTER: Initial ACUITY: 1 day PAIN SCALE: 0/10 LOCATION: Bilateral cranial TECHNIQUE: Multiple contiguous axial images were obtained of the head. Using automated exposure control and adj ustment of the mA and/or kV according to patient size, radiation dose was kept as low as reasonably a chievable to obtain optimal diagnostic quality images. FINDINGS: There is extensive cortical volume loss with white matter ischemic change and ventricular prominence. Probable calcified 1.9 cm meningioma and right middle cranial fossa and 1 cm meningioma and left mid dle cranial fossa. No evidence for recent infarct. No mass effect or shift. No acute calvarial abnorm alities. Paranasal sinuses are clear. CONCLUSION: 1. Chronic white matter ischemic changes with cortical atrophy. 2. Calcified meningioma right and left middle cranial fossa as above without significant mass effect. Luis Joya MD on July 28, 2016 at 10:22 Board Certified Radiologist. This report was verified electronically.
--- NOTE | 2016-07-28 10:36 | RADRPT ---
EXAM DATE/TIME: 07/28/2016 10:15 [facility] COMPARISON: CHEST SINGLE AP, June 18, 2016, 13:40. INDICATIONS : Patient is short of breath and has a fever. MEDICAL HISTORY : Hypertension. SURGICAL HISTORY : None. ENCOUNTER: Initial ACUITY: 1 day PAIN SCORE: Non-responsive. LOCATION: Bilateral chest FINDINGS: A single view of the chest demonstrates the lungs to be symmetrically aerated without evidence of mas s, infiltrate or effusion. The cardiomediastinal contours are unremarkable. Osseous structures are intact. CONCLUSION: No acute disease. No significant change has occurred. Luis Joya MD on July 28, 2016 at 10:32 Board Certified Radiologist. This report was verified electronically.
[2016-07-28 10:38] LABS: BACTERIA, URINE MANY /hpf; BLOOD, URINE TRACE (NEG); GLUCOSE,URINE NEG (NEG); KETONE, URINE NEG (NEG); NITRITE,URINE NEG (NEG); SQUAMOUS EPITHELIAL CELL URINE <1 /hpf (0-5); URINE COLOR YELLOW (YELLW/STRAW)
[2016-07-28 10:39] LABS: COMMENT (UR) CATH-CULTURE IND; CULTURE IF INDICATED CATH CULTURE IND
[2016-07-28 10:50] LABS: ALT (GPT) 28 U/L (10-53); ANION GAP 11 MEQ/L (5-15); AST (GOT) 40 U/L (15-37); BICARBONATE 28.4 MEQ/L (21.0-32.0); BLOOD UREA NITROGEN 44 MG/DL (7-18); CHLORIDE 103 MEQ/L (98-107); GLOMERULAR FILTRATION RATE 23 ML/MIN (>89); POTASSIUM 3.7 MEQ/L (3.5-5.1); SODIUM (NA) 142 MEQ/L (136-145)
[2016-07-28 10:52] LABS: ALKALINE PHOSPHATASE 46 U/L (45-117); TOTAL BILIRUBIN ADULT 0.5 MG/DL (0.2-1.0)
[2016-07-28] MEDS ORDERED: SODIUM CHLORIDE 0.9% FLUSH 10 ML FLUSH IV FLUSH PRN ×2 (11:30→11:45)
[2016-07-28] MEDS ORDERED: CHLORHEXIDINE GLUCONATE 2 % 1 PACK (2 CLOTHS) TOP PRN ×2 (11:30→11:45)
[2016-07-28] MEDS ORDERED: MISCELLANEOUS NURSING INFORMATION XX SCH ×2 (11:30→11:45)
[2016-07-28] MEDS ORDERED: Vancomycin Consult Pharmacy 1 EA OTHER SCH (11:30)
[2016-07-28] MEDS: SODIUM CHLOR 0.9% 1000 ML INJ 1,000 ML IV SCH ×2 (11:33→21:15)
[2016-07-28] MEDS ORDERED: PHENYLEPHRINE INJ 160 MG in DEXTROSE 5% IN WATE 500 ML INJ 484 ML IV SCH ×2 (11:45)
[2016-07-28] MEDS ORDERED: ACETAMINOPHEN 325 MG TAB PO PRN (11:45)
[2016-07-28] MEDS ORDERED: LACTULOSE SYRUP 20 GM/30 ML CUP PO PRN (11:45)
[2016-07-28] MEDS ORDERED: MAGNESIUM HYDROXIDE SUSP 30 ML CUP PO PRN (11:45)
[2016-07-28] MEDS ORDERED: RESP: ALBUTEROL 2.5 MG/3 ML NEB (PRN) INH (11:45)
[2016-07-28] MEDS ORDERED: BISACODYL 10 MG SUPP RECTAL PRN (11:45)
[2016-07-28] MEDS ORDERED: TERBUTALINE INJ 1 MG/ML AMP SQ PRN (11:45)
[2016-07-28] MEDS ORDERED: ONDANSETRON HCL 4 MG/2 ML VIAL IV PRN (11:45)
[2016-07-28] MEDS ORDERED: SENNOSIDES 8.6 MG TAB PO PRN (11:45)
[2016-07-28] MEDS ORDERED: ACETAMINOPHEN/HYDROcodone 325 MG/5 MG TAB PO PRN (11:45)
[2016-07-28 11:50] LABS: BLOOD GAS CARBOXYHEMOGLOBIN 0.8 % (0-4); BLOOD GAS HCO3 19 mmol/L (22-26); BLOOD GAS METHEMOGLOBIN 0.3 % (0-2); BLOOD GAS O2 HGB SATURATION 98 % (90-100); BLOOD GAS OXYGEN CONTENT 15.1 Vol % (12.0-20.0); BLOOD GAS PCO2 28 mmHg (38-42); BLOOD GAS PO2 150 mmHG (61-120); BLOOD GAS TOTAL HGB 10.8 G/DL (12.0-16.0); TEMP CORR TO 98.6
[2016-07-28 11:51] LABS: CRITICAL VALUE YES; DRAW SITE RT RADIAL; LITER FLOW 2 L/M; NUMBER OF ARTERIAL PUNCTURES 1; OXYGEN DEVICE NASAL CANNULA; STAT NO; ULNAR PULSE Y
[2016-07-28] MEDS ORDERED: HYDROCORTISONE SOD SUCCINATE 100 MG VIAL IV SCH (12:00)
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
[2016-07-28 12:06] LABS: LACTIC ACID GHOST NOT REPORTABLE
--- NOTE | 2016-07-28 12:08 | EKG ---
Date Performed: 07/28/2016 Time Performed: 09:34:37 PTAGE: 66 years EKG: SINUS TACHYCARDIA WITH OCCASIONAL VENTRICULAR PREMATURE COMPLEXES ABNORMAL RHYTHM ECG NO PREVIOUS TRACING DOCTOR: Rell Saavedra Interpretating Date/Time 07/28/2016 12:06:52
--- NOTE | 2016-07-28 12:48 | PD.PROCEDR ---
Central Line Procedure REASON FOR PROCEDURE Central venous access PROCEDURE PERFORMED Central line placement: Left IJ CVL CONSENT Informed consent for procedure was obtained Dallin Slade. The risks and benefits of the procedure were discussed to include but limited to bleeding, clot formation, infection, and even . ANESTHESIA Local injection of 1% Lidocaine DESCRIPTION OF THE PROCEDURE The patient was placed in supine, mild Trendelenburg position. The area was exposed and cleansed with ChloraPrep, times two. Large sterile drape was used to cover the patient, with the site exposed, under sterile conditions including cap, face mask, sterile gown, and sterile gloves. On single attempt, the introducer needle was inserted with negative pressure in syringe and venous flash was obtained. The guide wire was then advanced without any restriction and the needle was removed. The dilator was used without any complications. Using Seldinger technique the triple lumen catheter was advanced over the guide wire to a depth of 20 centimeters. The guide wire was removed. All ports were aspirated with dark venous blood return and flushed easily with sterile saline. All ports were capped. Antibiotic disc was placed around central line at puncture site. The central line was secured to the skin with two interrupted 2.0 silk sutures. The area was bandaged with sterile see-through central line bandage. RADIOLOGICAL DATA Ultrasound guidance was used to locate left internal jugular vein. Doppler/ color flow was used to confirm venous flow. COMPLICATIONS: No apparent complications ESTIMATED BLOOD LOSS: Less than 1 cc. Jeremiah Roldan MD Jul 28, 2016 12:48
[2016-07-28] MEDS ORDERED: GLUCAGON 1 MG/ML VIAL OTHER PRN (13:00)
[2016-07-28] MEDS: ARTIFICIAL TEARS OPTH SOLN 15 ML BTL EACH EYE SCH ×2 (13:00→18:00)
[2016-07-28] MEDS ORDERED: SODIUM CHLORIDE 0.9% FLUSH 10 ML FLUSH IVF PRN (13:00)
[2016-07-28] MEDS ORDERED: DEXTROSE 50% IN WATER 50 ML VIAL(D50) IV PRN (13:00)
--- NOTE | 2016-07-28 13:31 | RADRPT ---
EXAM DATE/TIME: 07/28/2016 13:01 [facility] COMPARISON: CHEST SINGLE AP, July 28, 2016, 10:15. INDICATIONS : Evaluate central line placement. MEDICAL HISTORY : Hypertension. SURGICAL HISTORY : None. ENCOUNTER: Subsequent ACUITY: 1 day PAIN SCORE: Non-responsive. LOCATION: Bilateral chest FINDINGS: A single view of the chest demonstrates left central line in superior vena cava. Minimal basilar atel ectasis. No effusion. No pneumothorax. CONCLUSION: 1. Left central line in superior vena cava. No pneumothorax. Luis Joya MD on July 28, 2016 at 13:24 Board Certified Radiologist. This report was verified electronically.
[2016-07-28] MEDS: HYDROCORTISONE SOD SUCCINATE 100 MG VIAL IV PUSH SCH ×2 (14:00→21:12)
[2016-07-28 14:07] LABS: APTT (PATIENT) 37.8 SEC (24.3-30.1); INTERNATIONAL NORMALIZED RATIO 1.1 RATIO; PROTHROMBIN TIME - PATIENT 12.1 SEC (9.8-11.6)
[2016-07-28] MEDS: MAGNESIUM SULFATE 1 GM PREMIX 100 ML IV SCH ×3 (15:00→17:36)
[2016-07-28] MEDS: PIPERACIL-TAZO 3.375 GM PREMIX 50 ML IV SCH ×2 (15:31→21:12)
[2016-07-28] MEDS: INSULIN NovoLIN REGULAR SUPPLEMENTAL SCALE SQ SCH ×2 (16:00→21:00)
[2016-07-28] MEDS: RESP: ALBUTEROL 2.5 MG/IPRATROPIUM 0.5 MG NEB (SCH) INH ×2 (16:34→19:41)
[2016-07-28 17:44] LABS: CKMB 3.7 NG/ML (0.5-3.6)
[2016-07-28] MEDS ORDERED: ACETAMINOPHEN 650 MG SUPP RECTAL PRN (17:45)
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
[2016-07-28] MEDS: MUPIROCIN 2% OINT 22 GM TUBE TOPICAL SCH (21:00)
[2016-07-28] MEDS ORDERED: SODIUM CHLORIDE 0.9% FLUSH 10 ML FLUSH IV FLUSH SCH (21:00)
[2016-07-28] MEDS: DOCUSATE SODIUM 50 MG/SENNA 8.6 MG TAB PO SCH (21:00)
[2016-07-28] MEDS: SODIUM CHLORIDE 0.9% FLUSH 10 ML FLUSH IV FLUSH SCH (21:11)
[2016-07-28] MEDS: CHLORHEXIDINE GLUCONATE 2 % 1 PACK (2 CLOTHS) TOP SCH (21:15)
[2016-07-29] VITALS (57 sets, daily range): BP systolic 104–153; BP diastolic 58–88; PULSE 60–87; RESP 10–23; TEMP 98.1–99.3; O2SAT 83–99
[2016-07-29 01:23] LABS: BICARBONATE 21.2 MEQ/L (21.0-32.0); MAGNESIUM 2.5 MG/DL (1.5-2.5)
[2016-07-29 01:25] LABS: POTASSIUM 2.8 MEQ/L (3.5-5.1)
[2016-07-29 02:47] LABS: CALCIUM-PROTEIN CORRECTED 7.9 MG/DL (8.5-10.1)
[2016-07-29] MEDS: POTASSIUM CHLOR 40 MEQ PREMIX 100 ML IV SCH ×2 (02:56→05:09)
[2016-07-29] MEDS: PIPERACIL-TAZO 3.375 GM PREMIX 50 ML IV SCH ×4 (02:57→21:06)
[2016-07-29] MEDS: RESP: ALBUTEROL 2.5 MG/IPRATROPIUM 0.5 MG NEB (SCH) INH ×4 (03:36→20:05)
[2016-07-29] MEDS ORDERED: CHLORHEXIDINE GLUCONATE 2 % 1 PACK (2 CLOTHS) TOP SCH (04:00)
[2016-07-29] MEDS: HYDROCORTISONE SOD SUCCINATE 100 MG VIAL IV PUSH SCH ×3 (05:03→21:07)
[2016-07-29] MEDS: LEVOTHYROXINE SODIUM 75 MCG TAB PO SCH (05:05)
[2016-07-29 05:11] LABS: AUTOMATED NEUTROPHIL # 30.1 TH/MM3 (1.8-7.7); BASOPHIL # 0.1 TH/MM3 (0-0.2); BASOPHIL % 0.3 % (0.0-2.0); EOSINOPHIL # 0.1 TH/MM3 (0-0.4); EOSINOPHIL % 0.2 % (0.0-4.0); HEMATOCRIT 32.3 % (35.0-46.0); LYMPHOCYTE # 0.6 TH/MM3 (1.0-4.8); MEAN CELL VOLUME 89.4 FL (80.0-100.0); MEAN CORPUSCULAR HEMOGLOBIN 28.7 PG (27.0-34.0); MEAN CORPUSCULAR HGB CONC 32.1 % (32.0-36.0); MONO % 4.1 % (0.0-8.0); NEUT % 93.4 % (16.0-70.0); PLATELET COUNT 197 TH/MM3 (150-450); RED BLOOD COUNT 3.61 MIL/MM3 (4.00-5.30); RED CELL DISTRIBUTION WIDTH 13.6 % (11.6-17.2); WHITE BLOOD COUNT 32.2 TH/MM3 (4.0-11.0)
[2016-07-29 05:24] LABS: INTERNATIONAL NORMALIZED RATIO 1.2 RATIO; PROTHROMBIN TIME - PATIENT 13.2 SEC (9.8-11.6)
[2016-07-29 05:49] LABS: BICARBONATE 24.3 MEQ/L (21.0-32.0); CALCIUM-PROTEIN CORRECTED 8.4 MG/DL (8.5-10.1); MAGNESIUM 2.3 MG/DL (1.5-2.5); POTASSIUM 3.2 MEQ/L (3.5-5.1); TOTAL BILIRUBIN ADULT 0.4 MG/DL (0.2-1.0)
[2016-07-29 05:52] LABS: HEMO FLAGS AUTO DIFF
[2016-07-29] MEDS: INSULIN NovoLIN REGULAR SUPPLEMENTAL SCALE SQ SCH ×4 (07:00→20:26)
[2016-07-29 07:01] LABS: BANDS 18 % (0-6); NEUTROPHIL # MANUAL DIFF 31.9 TH/MM3 (1.8-7.7); PLATELET ESTIMATE SMEAR NORMAL (NORMAL); PLATELET MORPHOLOGY NORMAL (NORMAL); POLYS (SEG NEUTROPHILS) 81 % (16-70); SCAN/DIFF FINAL DIFF MANUAL; WBC DIFF SAMPLE 100
[2016-07-29] MEDS: SODIUM CHLORIDE 0.9% FLUSH 10 ML FLUSH IVF SCH (09:00)
[2016-07-29] MEDS ORDERED: levETIRAcetam 500 MG TAB PO SCH (09:00)
[2016-07-29] MEDS: SODIUM CHLOR 0.45% 1000 ML INJ 1,000 ML IV SCH ×2 (09:00→19:44)
[2016-07-29] MEDS: ARTIFICIAL TEARS OPTH SOLN 15 ML BTL EACH EYE SCH ×3 (09:00→18:00)
[2016-07-29] MEDS: DOCUSATE SODIUM 50 MG/SENNA 8.6 MG TAB PO SCH ×2 (09:00→19:45)
[2016-07-29] MEDS: MUPIROCIN 2% OINT 22 GM TUBE TOPICAL SCH ×2 (09:00→19:45)
[2016-07-29] MEDS: PANTOPRAZOLE SODIUM 40 MG VIAL IV SCH (09:00)
[2016-07-29] MEDS: SODIUM CHLORIDE 0.9% FLUSH 10 ML FLUSH IV FLUSH SCH ×2 (09:00→19:45)
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
[2016-07-29] MEDS ORDERED: Vancomycin Consult Pharmacy 1 EA OTHER SCH (09:15)
[2016-07-29] MEDS ORDERED: CALCIUM GLUCONATE INJ 1 GM in SODIUM CHLORIDE 0.9% INJ 100 ML IV ONE (09:15)
[2016-07-29 09:22] LABS: AUTOMATED NEUTROPHIL # 27.8 TH/MM3 (1.8-7.7); BASOPHIL # 0.2 TH/MM3 (0-0.2); BASOPHIL % 0.6 % (0.0-2.0); EOSINOPHIL # 0.1 TH/MM3 (0-0.4); EOSINOPHIL % 0.2 % (0.0-4.0); HEMATOCRIT 31.3 % (35.0-46.0); HEMO FLAGS DIFF FINAL; LYMPHOCYTE # 0.6 TH/MM3 (1.0-4.8); MEAN CELL VOLUME 88.3 FL (80.0-100.0); MEAN CORPUSCULAR HEMOGLOBIN 28.9 PG (27.0-34.0); MEAN CORPUSCULAR HGB CONC 32.8 % (32.0-36.0); MONO % 3.2 % (0.0-8.0); PLATELET COUNT 181 TH/MM3 (150-450); RED BLOOD COUNT 3.55 MIL/MM3 (4.00-5.30); RED CELL DISTRIBUTION WIDTH 13.5 % (11.6-17.2); WHITE BLOOD COUNT 29.6 TH/MM3 (4.0-11.0)
--- NOTE | 2016-07-29 10:24 | PD.CONS ---
History of Present Illness Service Infectious disease Consult Requested By Dr Alexander Reason for Consult Evaluate patient with gram-negative bacteremia, UTI, worsening leukocytosis Primary Care Physician Unknown Diagnoses: History of Present Illness Patient seen and examined. Records reviewed. Patient is a 66-year-old female brought into the hospital from the retirement for evaluation of hypotension, high fever, tachycardia, and lethargy. Patient has underlying psychiatric disorder, and she was recently hospitalized in June after a suicide attempt. She stabilized and her medications were adjusted, and she was discharged to the retirement around June 27. She was apparently diagnosed to have urinary tract infection during that hospitalization, and she was on Macrobid, and was discharged on Macrobid. Most of the history has been obtained from the patient's who has been seeing the patient on a daily basis. She was doing okay, but apparently according to the about a week prior to admission he had noticed that the patient was getting very sleepy. Patient was on Ativan at that time, and so her medication was adjusted. There was some improvement in her sleepy state, but the had noted that patient has not been communicating verbally. She had been placed on a different medication, and that was again adjusted. The has not really noted any change in her mental status, and on the day of admission she was called because she was noted to be more lethargic again, had a fever, low blood pressure and elevated heart rate. Patient according to the has had problem with recurrent UTI. It was mostly cystitis symptoms, and she would be treated in the urgent care center, and has not really required any hospitalization for her UTI. She has not had any kind of complete workup for urological evaluation for her recurrent UTI. In the ED, according to the , her abdomen was distended, and a Hubbard catheter was inserted and there was a big amount of volume mode urine that was obtained with significant purulence. She had a fever of 102.3 in the ED, had elevated WBC, and was hypotensive requiring BP support. Currently she is afebrile, and she is off pressors. Her white count remains elevated. Her initial creatinine was 2.9, and it's down to normal. Patient is awake but still not verbal, and not consistent as far as following commands. Infectious disease consultation is requested to evaluate the patient with gram- negative in her blood culture, UTI, and leukocytosis. Review of Systems ROS Limitations: Clinical Condition, Altered Mental Status Past Family Social History Allergies: Coded Allergies: Sulfa (Unverified Allergy, Unknown, redness and swelling, 06/16/16) Past Medical History Hypertension Dyslipidemia Parkinson's disease Hypothyroidism Bipolar disorder Dementia disorder Vitamin D deficiency Migraine headache Chronic benzodiazepine use Osteoporosis/osteoarthritis Constipation Past Surgical History Hysterectomy Active Ordered Medications Tylenol [place] Albuterol Dulcolax Insulin Lactulose Keppra Synthroid MOM Morphine Zofran Protonix Tre-Synephrine Zosyn [place]av[place]-Colace Senokot Vancomycin Family History DM Otherwise, non-contributory to current ID problem Social History Prior to June 2016 drink occasional glass of wine with dinner. No tobacco or IV drug use documented Physical Exam Vital Signs Vital Signs Date Time Temp Pulse Resp B/P Pulse Ox O2 Delivery O2 Flow Rate FiO2 07/29/16 08:21 98 07/29/16 06:15 79 07/29/16 06:00 81 07/29/16 06:00 98.6 81 20 104/58 98 07/29/16 05:45 85 07/29/16 05:30 82 07/29/16 05:15 86 07/29/16 05:00 98.4 86 19 107/60 97 07/29/16 05:00 86 07/29/16 04:45 79 07/29/16 04:31 81 07/29/16 04:15 80 07/29/16 04:00 98.1 78 23 118/69 99 07/29/16 04:00 78 07/29/16 03:45 72 07/29/16 03:45 98.2 72 13 134/67 99 07/29/16 03:30 61 07/29/16 03:30 98.2 61 19 114/66 97 07/29/16 03:15 68 07/29/16 03:15 98.2 68 17 118/68 98 07/29/16 03:00 98.1 60 18 119/68 98 07/29/16 03:00 60 07/29/16 02:45 98.1 60 17 120/66 98 07/29/16 02:45 60 07/29/16 02:30 72 07/29/16 02:30 98.1 72 18 123/66 98 07/29/16 02:15 61 6/19/17 02:15 98.1 61 19 116/65 98 17 02:00 61 07/29/16 02:00 98.1 61 18 116/64 97 17 01:45 63 17 01:30 78 17 01:15 67 17 01:00 66 07/29/16 01:00 98.1 66 19 113/66 98 17 00:45 62 07/29/16 00:45 98.2 62 18 104/58 97 07/29/16 00:30 98.2 65 18 118/64 98 07/29/16 00:30 65 07/29/16 00:15 98.2 78 17 145/74 83 07/29/16 00:15 78 07/29/16 00:00 61 07/29/16 00:00 98.3 61 19 118/64 98 17 23:45 98.2 63 18 119/64 98 1817 23:30 98.2 64 20 114/63 98 1817 23:15 65 17 23:15 98.2 65 19 118/66 97 18/17 23:00 68 17 23:00 98.2 68 19 126/69 98 18/17 22:45 71 18/17 22:45 98.4 71 19 127/68 97 18/17 22:36 98.6 67 18 121/64 97 18/17 22:36 67 18/17 22:30 68 1817 22:15 112 1817 22:15 98.4 112 27 120/77 97 1817 22:00 98.6 79 14 142/72 98 18/17 22:00 79 18/17 21:45 76 18/17 21:45 98.6 76 22 139/69 95 18/17 21:30 71 618/17 21:30 98.6 71 18 136/70 97 18/17 21:15 98.6 75 19 127/71 98 18/17 21:00 98.6 76 19 121/64 94 18/17 20:15 98.8 74 18 144/72 96 18/17 20:15 74 6/18/17 20:00 98.3 73 20 141/66 98 07/28/16 20:00 73 07/28/16 19:45 67 07/28/16 19:30 68 07/28/16 19:15 70 07/28/16 19:00 71 07/28/16 18:30 99.1 71 19 110/57 96 07/28/16 18:15 99.0 75 18 110/56 97 07/28/16 18:00 99.0 76 19 134/58 97 07/28/16 17:45 99.0 79 13 150/65 95 07/28/16 17:30 99.3 73 18 147/70 96 07/28/16 17:15 108/63 07/28/16 16:00 99.0 80 18 119/58 99 07/28/16 12:00 99.0 84 20 84/47 100 07/28/16 11:42 84 16 78/52 94 07/28/16 11:11 83 18 109/61 97 Nasal Cannula 3 Physical Exam GENERAL: Patient is a well-nourished, well-developed patient, awake, focusing , tracking, not consistent in following commands. Not in respiratory distress. SKIN: Warm and dry. No generalized rash, no ecchymoses and no evidence of embolic lesions. HEAD: Atraumatic. Normocephalic. No temporal wasting, or tenderness. EYES: [place] conjunctiva. No petechia or hemorrhage. Pupils equal, round and reactive to light. Extraocular movements full and intact. No scleral icterus. No injection or drainage. EARS, NOSE AND THROAT: Nose without bleeding or purulent nasal discharge. No sinus tenderness. Dry oral mucosa. NECK: Trachea midline. Supple and not tender, no meningeal signs CARDIOVASCULAR: Regular rate and rhythm. No murmurs, rubs or gallops heard RESPIRATORY: Clear to auscultation. Breath sounds equal bilaterally. No rales , wheezing or rhonchi ABDOMEN: Flat, soft, nondistended, has diffuse tenderness that seem to be worse on R than L. Bowel sounds present and normoactive. EXTREMITIES: No clubbing, cyanosis, or edema.No joint effusion, has good ROM. No calf tenderness. Well perfused and warm. NEUROLOGICAL: Awake and alert. Unable to do good exam of CN because she is not following all the time. Seems to have equal hand quality officer. No Babinski PSYCHIATRIC: Flat affect, following some commands LINE: No evidence of infection Laboratory Laboratory Tests Test 07/28/16 07/28/16 07/28/16 07/28/16 11:45 12:28 13:31 13:50 Blood Gas Puncture Site RT RADIAL Blood Gas Patient Temperature 98.6 Blood Gas HCO3 19 Blood Gas Base Excess -4.0 Blood Gas Oxygen Saturation 98 Arterial Blood pH 7.45 Arterial Blood Partial 28 Pressure CO2 Arterial Blood Partial 150 Pressure O2 Arterial Blood Oxygen Content 15.1 Arterial Blood 0.8 Carboxyhemoglobin Arterial Blood Methemoglobin 0.3 Blood Gas Hemoglobin 10.8 Oxygen Delivery Device NASAL CANNULA Blood Gas Liter Flow 2 Nasal Screen MRSA (PCR) MRSA NOT DETECTED Prothrombin Time 12.1 Prothromb Time International 1.1 Ratio Activated Partial 37.8 Thromboplast Time Fibrinogen 403 Lactic Acid Level 2.9 Magnesium Level 1.3 Troponin I 0.03 Urine Eosinophils NONE SEEN Test 07/28/16 07/28/16 07/29/16 07/29/16 14:20 17:00 00:16 04:45 Ammonia 25 Lactic Acid Level 3.5 2.3 2.4 Phosphorus Level 2.3 2.2 Total Creatine Kinase 425 Creatine Kinase MB 3.7 Creatine Kinase MB % 0.9 Troponin I 0.03 Thyroid Stimulating Hormone 1.880 3rd Gen Sodium Level 146 148 Potassium Level 2.8 3.2 Chloride Level 115 118 Carbon Dioxide Level 21.2 24.3 Anion Gap 10 6 Blood Urea Nitrogen 32 31 Creatinine 0.90 0.80 Estimat Glomerular Filtration 62 71 Rate Random Glucose 132 130 Calcium Level 6.7 7.0 Protein Corrected Calcium 7.9 8.4 Magnesium Level 2.5 2.3 Total Protein 4.8 4.5 White Blood Count 32.2 Red Blood Count 3.61 Hemoglobin 10.3 Hematocrit 32.3 Mean Corpuscular Volume 89.4 Mean Corpuscular Hemoglobin 28.7 Mean Corpuscular Hemoglobin 32.1 Concent Red Cell Distribution Width 13.6 Platelet Count 197 Mean Platelet Volume 7.9 Neutrophils (%) (Auto) 93.4 Lymphocytes (%) (Auto) 2.0 Monocytes (%) (Auto) 4.1 Eosinophils (%) (Auto) 0.2 Basophils (%) (Auto) 0.3 Neutrophils # (Auto) 30.1 Lymphocytes # (Auto) 0.6 Monocytes # (Auto) 1.3 Eosinophils # (Auto) 0.1 Basophils # (Auto) 0.1 CBC Comment AUTO DIFF Differential Total Cells 100 Counted Neutrophils % (Manual) 81 Band Neutrophils % 18 Monocytes % 1 Neutrophils # (Manual) 31.9 Differential Comment FINAL DIFF MANUAL Platelet Estimate NORMAL Platelet Morphology Comment NORMAL Red Cell Morphology Comment NORMAL Prothrombin Time 13.2 Prothromb Time International 1.2 Ratio Activated Partial 46.0 Thromboplast Time Total Bilirubin 0.4 Aspartate Amino Transf 27 (AST/SGOT) Alanine Aminotransferase 30 (ALT/SGPT) Alkaline Phosphatase 34 Albumin 1.9 Random Vancomycin Level 4.9 Test 07/29/16 09:15 White Blood Count 29.6 Red Blood Count 3.55 Hemoglobin 10.3 Hematocrit 31.3 Mean Corpuscular Volume 88.3 Mean Corpuscular Hemoglobin 28.9 Mean Corpuscular Hemoglobin 32.8 Concent Red Cell Distribution Width 13.5 Platelet Count 181 Mean Platelet Volume 7.5 Neutrophils (%) (Auto) 94.0 Lymphocytes (%) (Auto) 2.0 Monocytes (%) (Auto) 3.2 Eosinophils (%) (Auto) 0.2 Basophils (%) (Auto) 0.6 Neutrophils # (Auto) 27.8 Lymphocytes # (Auto) 0.6 Monocytes # (Auto) 0.9 Eosinophils # (Auto) 0.1 Basophils # (Auto) 0.2 CBC Comment DIFF FINAL Differential Comment Date/Time Procedure Status Source Growth 07/28/16 10:13 Aerobic Blood Culture Received Blood Peripheral Pending 07/28/16 10:13 Anaerobic Blood Culture Received Blood Peripheral Pending 07/28/16 10:00 Urine Culture Received Urine Catheterized Urine Pending Result Diagram: 07/29/16 0915 07/29/16 0445 Imaging RADIOLOGY STUDIES/FILMS REVIEWED Chest X-Ray 07/28/16 1249 Signed Impressions: Service Date/Time: Thursday, July 28, 2016 13:01 - CONCLUSION: 1. Left central line in superior vena cava. No pneumothorax. Luis Jyoa MD Head CT 07/28/16 0000 Signed Impressions: Service Date/Time: Thursday, July 28, 2016 10:03 - CONCLUSION: 1. Chronic white matter ischemic changes with cortical atrophy. 2. Calcified meningioma right and left middle cranial fossa as above without significant mass effect. Luis Joya MD Assessment and Plan Assessment and Plan IMPRESSION Sepsis, with GNR, present on admission due to source, with shock - BP better, off pressors - had urinary retention on admission - ?porblem with emptying of bladder - ?more complicated UTI Hx Bipolar disorder Hx dementia Renal insufficiency due to retention, resolved RECOMMENDATION Follow C/S and adjust Abx CT A/P to eval complications, obstruction Continue Zosyn for GNR and on Vanco for GPC Monitor progress I will determine course of Abx once C/S finalized and work-up completed I will follow along with you Thank you for this consultation Discussed Condition With Explained plan to Jazzy/W Georgette Gray MD Jul 29, 2016 10:24
[2016-07-29] MEDS: VANCOMYCIN 1,000 MG/NS 250 ML IV SCH ×2 (11:00)
[2016-07-29] MEDS: MEMANTINE HCL 10 MG TAB PO SCH ×2 (12:15→19:44)
[2016-07-29] MEDS: lamoTRIgine 100 MG TAB PO SCH ×2 (12:15→19:44)
[2016-07-29] MEDS ORDERED: buPROPion HCL 150 MG SUSTAINED RELEASE TAB PO SCH (12:15)
[2016-07-29] MEDS ORDERED: IOHEXOL 350 MG/ML 10 ML VIAL (for RAD DIAG) IV ONE (12:33)
--- NOTE | 2016-07-29 12:38 | PD.CONS ---
Provisional Diagnosis Admission Date Jul 28, 2016 at 11:42 [place] I. Dementia without behavioral disturbances, delirium due to underlying medical condition, history of bipolar disorder [place] II. Deferred History of Present Illness Service Psychiatry Consult Requested By Primary Care Physician Unknown HPI The patient is a 66-year-old woman, domicile in a [place] [facility] [place], , mother of 3 children, with psychiatric history of bipolar disorder, dementia, 2 previous psychiatric hospitalizations, last hospitalization here at [facility] about a month ago due to suicidal ideation, documentation was reviewed, active outpatient psychiatric care in living facility by Dr. Patton, she has history of ECT, suicidal attempts, she is on Wellbutrin 400 mg, Lamictal 200 mg twice a day, Namenda 10 mg. She has medical history of, hypothyroidism, hypertension dyslipidemia. During her last hospitalization in psychiatry She was seen at that time by psychiatry, neurology and hospitalist. During that time she was diagnosed of the Escherichia coli UTI resistant to ciprofloxacin, tetracycline and ampicillin. Since that time according to at bedside, patient has had recurrent urinary tract infections treated with multiple antibiotics. She now presents to [facility] from [facility] with chief complaint of hypotension, temperature 102.5 and altered mental status. According to , she has been at baseline including able ambulate in the hallway and eating and up until one week ago when she has become more stuporous, not responsive. She left yesterday however she has been essentially bedbound. When she was seen today she's noted to be some mottled hypotensive and about. [facility] ED, basic laboratories revealed a likely urinary tract infection with obvious light yellow cloudy urine, leukocytosis 25,000 and creatinine of 2.1. Baseline 0.7 and a lactate of 4.5. CT head revealed stable meningiomas. Consulted to psychiatry due to Hx bipolar disorder. On psychiatric evaluation patient is pleasantly confused, she has a very labile affect, non-cooperative with the evaluation due to the level of cognitive impairment. Patient is disoriented times person and place. Can follow very simple comments. However at times she recognizes her and smiles. She doesn't have any suicidal ideation, she doesn't have any homicidal ideation, she doesn't seem to be responding to internal stimuli. Her Dallin Slade, who is at bedside with the patient, says that patient has been at baseline, even though in the last 6 months her dementia progression has been significant. Patient has been seen by Dr. Patton in outpatient basis and in the last weeks he had change her medication a few times. However, patient hasn't displayed any combative, aggressive behavior, hostility agitation. Review of Systems Constitutional: DENIES: Diaphoretic episodes, Fatigue, Fever, Weight gain, Weight loss, Chills, Dizziness, Change in appetite, Night Sweats Endocrine: DENIES: Abnorml menstrual pattern, Heat/cold intolerance, Polydipsia , Polyuria, Polyphagia Respiratory: DENIES: Apneas, Cough, Snoring, Wheezing, Hemoptysis, Sputum production, Shortness of breath Cardiovascular: DENIES: Chest pain, Palpitations, Syncope, Dyspnea on Exertion , PND, Lower Extremity Edema, Orthopnea, Claudication Gastrointestinal: DENIES: Abdominal pain, Black stools, Bloody stools, Constipation, Diarrhea, Nausea, Vomiting, Difficulty Swallowing, Anorexia Genitourinary: DENIES: Abnormal vaginal bleeding, Dysmenorrhea, Dyspareunia, Sexual dysfunction, Urinary frequency, Urinary incontinence, Urgency, Hematuria , Dysuria, Nocturia, Vaginal discharge Integumentary: DENIES: Abnormal pigmentation, Pruritus, Rash, Nail changes, Breast masses, Breast skin changes, Nipple discharge Hematologic/lymphatic: DENIES: Bruising, Lymphadenopathy Immunologic/allergic: DENIES: Eczema, Urticaria Neurologic: DENIES: Abnormal gait, Headache, Localized weakness, Paresthesias, Seizures, Speech Problems, Tremor, Poor Balance Psychiatric: DENIES: Anxiety, Confusion, Mood changes, Depression, Hallucinations, Agitation, Suicidal Ideation, Homicidal Ideation, Delusions Past Family Social History Coded Allergies: Sulfa (Unverified Allergy, Unknown, redness and swelling, 06/16/16) Active Scripts Nitrofurantoin Monohydrate Macrocrystals (Macrobid)100 Mg Fjt014 Mg PO BIDPC # 6 CAP Ref 0 Prov:Sanchez Patrick MD 06/27/16 Mupirocin Topical 2 % Oint1 Applic TOPICAL BID #1 TUBE Prov:Sanchez Patrick MD 06/27/16 Memantine (Namenda)10 Mg Tab10 Mg PO BID #60 TAB Ref 0 Prov:Sanchez Patrick MD 06/27/16 Lisinopril 10 Mg Tab10 Mg PO DAILY #30 TAB Ref 0 Prov:Sanchez Patrick MD 06/27/16 Levothyroxine (Synthroid)75 Mcg Tab75 Mcg PO DAILY@0600 #30 TAB Ref 0 Prov:Sanchez Patrick MD 06/27/16 Lamotrigine (Lamictal)100 Mg Guy594 Mg PO 2 bid #120 TAB Ref 0 Prov:Sanchez Patrick MD 06/27/16 Lactobacillus Acidophilus (Acidophilus/l-Sporogenes)1 Tab Tab1 Tab PO DAILY # 30 TAB Ref 0 Prov:Sanchez Patrick MD 06/27/16 Hydrochlorothiazide 25 Mg Tab25 Mg PO DAILY #30 TAB Ref 0 Prov:Sanchez Patrick MD 06/27/16 Docusate Sodium (Dok)100 Mg Sne125 Mg PO BID #60 CAP Ref 0 Prov:Sanchez Patrick MD 06/27/16 Cyanocobalamin (Vitamin B-12)1,000 Mcg Tab1,500 Mcg PO 1-1/2 daily #45 TAB Ref 0 Prov:Sanchez Patrick MD 06/27/16 Cholecalciferol (Vitamin D3)1,000 Unit Tab1,000 Units PO DAILY #30 TAB Ref 0 Prov:Sanchez Patrick MD 06/27/16 Carbidopa-Levodopa 25-100 Mg Tab1 Tab PO Q8HR #90 TAB Ref 0 Prov:Sanchez Patrick MD 06/27/16 Bupropion HCl ER 12 HR (Wellbutrin SR 12 HR)150 Mg Qmx822 Mg PO 2 AM #60 TAB Ref 0 Prov:Sanchez Patrick MD 06/27/16 Atorvastatin 20 Mg Tab20 Mg PO HS #30 TAB Ref 0 Prov:Sanchez Patrick MD 06/27/16 Lorazepam (Ativan)0.5 Mg Tab0.5 Mg PO Q4H PRN (For mild anxiety / dyspnea) #15 TAB Ref 0 Prov:Toni Johnson MD 06/16/16 Mupirocin Topical (Bactroban Topical)2% Oint1 Appl TOPICAL BID 14 Days Prov:Toni Johnson MD 06/09/16 Reported Medications Dextromethorphan HBr-Quinidine (Nuedexta 20-10 mg)1 Cap Cap1 Cap PO BID #60 CAP Ref 0 06/18/16 Eletriptan (Relpax)40 Mg Tab40 Mg PO ONCE PRN (MIGRAINE HEADACHE) #6 TAB Ref 0 04/06/16 Meloxicam 15 Mg Tab15 Mg PO DAILY PRN (ARTHRITIS PAIN) #30 TAB Ref 0 04/06/16 Sumatriptan 100 Mg Rar376 Mg PO ONCE PRN (MIGRAINE HEADACHE) Ref 0 If a satisfactory response has not been obtained at 2 hours, a second dose may be administered 04/06/16 Alendronate 70 Mg Tab70 Mg PO Q7D ON MONDAYS #4 TAB Ref 0 04/06/16 Current Medications Medications (Trade) Dose Ordered Sig/Aisha Route Start Time Stop Time Status Last Admin (NS Flush) 2 ml UNSCH PRN IV FLUSH 07/28/16 11:30 (NS Flush) 2 ml BID IV FLUSH 07/28/16 21:00 07/29/16 09:00 (Protonix Inj) 40 mg DAILY IV 07/29/16 09:00 07/29/16 09:00 Terbutaline Sulfate 1 mg 1 mg UNSCH PRN SQ 07/28/16 11:45 (Neosynephrine Inj/D5W 500 ml Inj) 500 ml @ 0 mls/hr TITRATE IV 07/28/16 11:45 ([place] 5-325 Mg) 1 tab Q4H PRN PO 07/28/16 11:45 (Morphine Inj) 2 mg Q2H PRN IV 07/28/16 11:45 (Tears Naturale Opth Soln) 1 drop TID EACH EYE 07/28/16 13:00 (Zofran Inj) 4 mg Q6H PRN IV 07/28/16 11:45 Miscellaneous Information 1 Q361D XX 07/28/16 11:45 (Chlorhexidine 2% Cloth) 3 pack Taper DAILY@04 TOP 07/29/16 04:00 07/25/17 03:59 07/28/16 21:15 (Chlorhexidine 2% Cloth) 3 pack UNSCH PRN TOP 07/28/16 11:45 ([place]-Colace) 1 tab BID PO 07/28/16 21:00 (Milk Of Magnesia Liq) 30 ml Q12H PRN PO 07/28/16 11:45 (Senokot) 17.2 mg Q12H PRN PO 07/28/16 11:45 (Dulcolax Supp) 10 mg DAILY PRN RECTAL 07/28/16 11:45 (Lactulose Liq) 30 ml DAILY PRN PO 07/28/16 11:45 (Synthroid) 75 mcg DAILY@0600 PO 07/29/16 06:00 07/29/16 05:05 Mupirocin 1 applic 1 applic BID TOPICAL 07/28/16 21:00 (Zosyn 3.375 Gm Premix) 50 ml @ 100 mls/hr Q6H IV 07/28/16 16:00 07/29/16 10:00 (SoluCORTEF INJ) 100 mg Q8HR IV PUSH 07/28/16 14:00 07/29/16 05:03 (NS Flush) DAILY IVF 07/29/16 09:00 07/29/16 09:00 (NS Flush) UNSCH PRN IVF 07/28/16 13:00 (D50w (Vial) Inj) 50 ml UNSCH PRN IV 07/28/16 13:00 (Glucagon Inj) 1 mg UNSCH PRN OTHER 07/28/16 13:00 (Tylenol Supp) 650 mg Q6H PRN RECTAL 07/28/16 17:45 Levetriacetam 500 mg 500 mg Q12HR PO 07/29/16 09:00 Sodium Chloride 1,000 ml @ 100 mls/hr Q10H IV 07/29/16 09:00 07/29/16 09:00 Pharmacy Profile Note 0 ml @ 0 mls/hr UNSCH OTHER 07/29/16 09:15 (Vancomycin Inj/ NS 250 ml Inj) 250 ml @ 250 mls/hr Q24H IV 07/29/16 11:00 Miscellaneous Information SPECIFIC LAB TO BE KAREN... 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, high level of education is high school Physical Exam Vital Signs Vital Signs Date Time Temp Pulse Resp B/P Pulse Ox O2 Delivery O2 Flow Rate FiO2 07/29/16 08:21 98 07/29/16 06:15 79 07/29/16 06:00 98.6 20 104/58 07/28/16 11:11 Nasal Cannula 3 I/O 07/28/16 07/28/16 07/29/16 08:00 16:00 00:00 Intake Total 997 ml Output Total 1500 ml 515 ml Balance -1500 ml 482 ml Lab Results Laboratory Tests Test 07/28/16 07/28/16 07/28/16 09:41 10:00 11:45 White Blood Count 25.5 Red Blood Count 4.78 Hemoglobin 13.8 Hematocrit 42.4 Mean Corpuscular Volume 88.7 Mean Corpuscular Hemoglobin 28.9 Mean Corpuscular Hemoglobin 32.5 Concent Red Cell Distribution Width 13.0 Platelet Count 276 Mean Platelet Volume 8.5 Neutrophils (%) (Auto) 95.6 Lymphocytes (%) (Auto) 1.2 Monocytes (%) (Auto) 3.1 Eosinophils (%) (Auto) 0.0 Basophils (%) (Auto) 0.1 Neutrophils # (Auto) 24.4 Lymphocytes # (Auto) 0.3 Monocytes # (Auto) 0.8 Eosinophils # (Auto) 0.0 Basophils # (Auto) 0.0 CBC Comment DIFF FINAL Differential Comment Sodium Level 142 Potassium Level 3.7 Chloride Level 103 Carbon Dioxide Level 28.4 Anion Gap 11 Blood Urea Nitrogen 44 Creatinine 2.10 Estimat Glomerular Filtration 23 Rate Random Glucose 97 Lactic Acid Level 4.5 Calcium Level 9.6 Total Bilirubin 0.5 Aspartate Amino Transf 40 (AST/SGOT) Alanine Aminotransferase 28 (ALT/SGPT) Alkaline Phosphatase 46 Total Protein 6.4 Albumin 2.9 Urine Color YELLOW Urine Turbidity HAZY Urine pH 6.0 Urine Specific [place] 1.013 Urine Protein 30 Urine Glucose (UA) NEG Urine Ketones NEG Urine Occult Blood TRACE Urine Nitrite NEG Urine Bilirubin NEG Urine Urobilinogen LESS THAN 2.0 Urine Leukocyte Esterase MOD Urine RBC 2 Urine WBC 35 Urine Squamous Epithelial <1 Cells Urine Bacteria MANY Microscopic Urinalysis Comment CATH-CULTURE IND Blood Gas Puncture Site RT RADIAL Blood Gas Patient Temperature 98.6 Blood Gas HCO3 19 Blood Gas Base Excess -4.0 Blood Gas Oxygen Saturation 98 Arterial Blood pH 7.45 Arterial Blood Partial 28 Pressure CO2 Arterial Blood Partial 150 Pressure O2 Arterial Blood Oxygen Content 15.1 Arterial Blood 0.8 Carboxyhemoglobin Arterial Blood Methemoglobin 0.3 Blood Gas Hemoglobin 10.8 Oxygen Delivery Device NASAL CANNULA Blood Gas Liter Flow 2 Date/Time Procedure Status Source Growth 07/28/16 10:13 Aerobic Blood Culture Received Blood Peripheral Pending 07/28/16 10:13 Anaerobic Blood Culture Received Blood Peripheral Pending 07/28/16 10:00 Urine Culture Received Urine Catheterized Urine Pending Result Diagram: 07/28/16 0941 07/28/16 0941 Imaging Last Impressions Chest X-Ray 07/28/16 0934 Signed Impressions: Service Date/Time: Thursday, July 28, 2016 10:15 - CONCLUSION: No acute disease. No significant change has occurred. Luis Joya MD Head CT 07/28/16 0000 Signed Impressions: Service Date/Time: Thursday, July 28, 2016 10:03 - CONCLUSION: 1. Chronic white matter ischemic changes with cortical atrophy. 2. Calcified meningioma right and left middle cranial fossa as above without significant mass effect. Luis Joya MD Mental Status Examination Appearance woman, age appearing, good hygiene, [facility], uncooperative due to the level of cognitive impairment. No agitation, no aggressive behavior, Speech: Other (reticent) Orientation: Person Memory: Impaired (describe) Thought Process: Loose Association, Thought Blocking Thought Content: Bizarre thinking Attention and Concentration: Abnormal Suicidal Ideation: No Previous Suicide Attempts: Yes Homicidal Ideation: No Previous Homicide Attempts: No Judgment: Poor Affect if Inappropriate: Labile Mood: Euthymic Motor Activity: Normal gait Assessment & Plan Problem List: (1) Dementia Assessment & Plan: The patient is a 66-year-old woman, domicile in a [place], , mother of 3 children, with psychiatric history of bipolar disorder, dementia, 2 previous psychiatric hospitalizations, last hospitalization here at [facility] about a month ago due to suicidal ideation, documentation was reviewed, active outpatient psychiatric care in living facility by Dr. Patton, she has history of ECT, suicidal attempts, she is on Wellbutrin 400 mg, Lamictal 200 mg twice a day, Namenda 10 mg. She has medical history of, hypothyroidism, Parkinson's disease, hypertension dyslipidemia. EEG showed likely seizure activity will place on Keppra 500mg BID and consult neuro. CT brain: Meningiomas are stable in size without mass effect or hemorrhage. Severe sepsis with multiorgan failure. Lactic acidosis. At the moment of this evaluation the patient is a baseline, severely demented. No agitation, no aggressive behavior, no stated age, observed or reported. Patient does show labile mood which could be secondary to addictive impairment and not to mood disorder. She does not meet criteria for psychiatric admission at this moment. Will discontinue Wellbutrin since these medications can lower seizure threshold. We'll continue Namenda 10 mg and Lamictal 200 mg twice a day for dementia and bipolar disorder respectively. Extensive support, motivation psycho education provided to the patient and . Patient will continue psychiatric care as an outpatient in residential facility. Consult appreciated. ICD Code: F03.90 Assessment & Plan Estimated LOS: days Problem Qualifiers (1) Dementia: Qualified Code: G30.9 - Alzheimer's dementia without behavioral disturbance, unspecified timing of dementia onset Red Watkins MD Jul 29, 2016 12:38
--- NOTE | 2016-07-29 15:24 | RADRPT ---
EXAM DATE/TIME: 07/29/2016 12:21 [place] COMPARISON: CT ABDOMEN & PELVIS W CONTRAST, August 04, 2013, 16:26. INDICATIONS : Urosepsis. IV CONTRAST: 94 cc Omnipaque 350 (iohexol) IV ORAL CONTRAST: No oral contrast ingested. RADIATION DOSE: 5.72 CTDIvol (mGy) MEDICAL HISTORY : Alzheimer's Cardiovascular disease Hypertension. SURGICAL HISTORY : section. Tubal ligation. ENCOUNTER: Initial ACUITY: 1 day PAIN SCALE: 0/10 LOCATION: Abdomen TECHNIQUE: Volumetric scanning of the abdomen and pelvis was performed. Using automated exposure control and ad justment of the mA and/or kV according to patient size, radiation dose was kept as low as reasonably achievable to obtain optimal diagnostic quality images. FINDINGS: There is a 0.8 cm hypodensity seen in the right lobe of the liver. This is present previously and li gino represents a small cyst or hemangioma. No other focal hepatic lesions are seen. There is a sma ll amount of ascites seen around the liver and the right pericolic gutter region. The spleen, pancreas, and adrenal glands appear normal. Both kidneys demonstrate normal enhancement. There are two cysts seen at the mid right kidney measuring 4.1 and 2.5 cm. Hydronephrosis is not s een. There is atherosclerotic calcification seen throughout the arterial system. An aneurysm is not seen. Significant adenopathy is not appreciated. Patient does have a Hubbard catheter in place. A pelvic mass is not seen. There is some ascites seen in the perineal cavity in the pelvis. There is a large amount of stool seen in the rectum. There is scattered diverticula seen in the sigmoid region. Significant bowel dilatation is not seen. There are bilateral mild to moderate pleural effusions with accompanying areas of suspected atelectas is at the lung bases. CONCLUSION: 1. Mild amount of ascites seen around the liver, right pericolic gutter region and the perineal cavi ty. 2. Stable subcentimeter hepatic lesion representing a cyst or hemangioma. 3. Right renal cyst. The kidneys appear otherwise normal bilaterally. 4. Hubbard catheter in the bladder. 5. Large amount of stool seen in the rectum. There are diverticula seen in the sigmoid region. Sig nificant surrounding inflammatory change is not seen. 6. Mild to moderate bilateral pleural effusions. Sanchez Whitt MD on July 29, 2016 at 13:54 Board Certified Radiologist. This report was verified electronically.
--- NOTE | 2016-07-29 15:36 | EKG ---
Date Performed: 07/28/2016 Time Performed: 16:48:03 PTAGE: 66 years EKG: Sinus rhythm SEPTAL MYOCARDIAL INFARCTION , PROBABLY OLD When compared to previous tracing, sinus rate is slower. R wave progression is more most like due to lead placement Differences. ABNORMAL ECG PREVIOUS TRACING : 07/28/2016 09.34 DOCTOR: Michael Nava Interpretating Date/Time 07/29/2016 15:35:38
--- NOTE | 2016-07-29 16:56 | MB ---
cc: RUPERTO HUGO M.D. DATE OF CONSULTATION 07/29/2016 REASON FOR CONSULTATION Dementia, abnormal EEG. HISTORY OF PRESENT ILLNESS Ms. Becker is a 66-year-old woman who was admitted with urinary tract infection as well as sepsis. The patient has a long history of dementia which has been declining over the past 6 months especially over the past week or so. Her relates that she has never had any type of seizure, never had any staring episodes or tonic-clonic activity. She has been treated for her sepsis. She was hypotensive as well. She did have an electroencephalogram performed yesterday which revealed occasional sharp activity as well as triphasic waves. PAST MEDICAL HISTORY She has a history of: 1. Dementia. 2. Hypertension. 3. Parkinsonism. 4. Hypothyroidism. 5. Bipolar disorder. 6. Vitamin D deficiency. 7. Osteoporosis. 8. Hysterectomy. MEDICATIONS Her current medications are: 1. Lamictal 200 mg b.i.d. 2. Namenda 10 mg b.i.d. 3. Vancomycin. 4. Protonix. 5. Keppra 500 mg b.i.d. which was begun yesterday. 6. Synthroid 75 mcg daily. Apparently she was on the Lamictal 200 milligrams b.i.d. as an outpatient related to her psychiatric disorder. NEUROLOGIC EXAMINATION VITAL SIGNS: Blood pressure is 120/66, pulse 79, respiratory rate is 13, temperature 99 degrees. Higher cortical function she is alert. She has minimal spontaneous speech output. She is disoriented to date and place. Poor memory. She can follow simple commands but no complications commands. Cranial nerves intact. Motor exam, there is no focal deficits. She has mild tremors in both upper extremities. Reflexes are symmetric. IMAGING CT scan of the brain done yesterday, chronic ischemic demyelinization. There is a calcified meningioma right and left middle cranial fossa, which is a appears to relatively small, I do not see any mass effect on reviewing the CT scan. In reviewing the images it is in the right hemisphere unilaterally. IMPRESSION The patient has evidence of dementia, now with a metabolic encephalopathy from sepsis, UTI. The EEG did reveals some sharp activity suggestive of epileptiform discharges. However, she has not had any clinical seizure activity. Suspect this may be because she was on Lamictal for her psychiatric illness. At the present time I would recommend stopping the Keppra, continue the Lamictal. I suspect the EEG abnormality may be on the basis of her dementia which can predispose to seizures, however, the Lamictal appears to be effective in controlling any clinical seizure activity. Regarding the meningioma, this is small at this time, I feel this is an incidental finding. Recommend follow-up CT or MRI in 6 months. MD ZUNILDA Fotser/SARA /4:26 PM /4:44 PM
[2016-07-29] MEDS: CHLORHEXIDINE GLUCONATE 2 % 1 PACK (2 CLOTHS) TOP SCH (21:07)
[2016-07-29] MEDS ORDERED: ICU - POTASSIUM PHOSPHATE 30 MMOL/NS 250 ML IV PRN ×2 (22:30)
[2016-07-29] MEDS ORDERED: POTASSIUM CHLORIDE 25 MEQ EFFERVESCENT TAB PO PRN (22:30)
[2016-07-29] MEDS ORDERED: ICU - MAGNESIUM SULFATE 2 GM/NS 100 ML IV PRN ×2 (22:30)
[2016-07-29] MEDS ORDERED: ICU - POTASSIUM CHLORIDE/AQUEOUS SOLN 20 MEQ/100 ML IVPB IV PRN (22:30)
[2016-07-29] MEDS ORDERED: ICU - D/C ICU ELECTROLYTE ORDERS PRN (22:30)
[2016-07-29] MEDS ORDERED: ICU - MAGNESIUM OXIDE 400 MG TAB PO PRN (22:30)
[2016-07-29] MEDS ORDERED: ICU - SODIUM PHOSPHATE 30 MMOL/NS 250 ML IV PRN ×2 (22:30)
[2016-07-29] MEDS ORDERED: ICU - CALL ORDERING PHYSICIAN PRN (22:30)
[2016-07-29] MEDS ORDERED: ICU - POTASSIUM PHOSPHATE MONOBASIC 500 MG TAB PO PRN (22:30)
[2016-07-29] MEDS ORDERED: ICU - POTASSIUM CHLORIDE/AQUEOUS SOLN 40 MEQ/100 ML IVPB IV PRN (22:30)
[2016-07-29] MEDS ORDERED: ICU - MAGNESIUM SULFATE 4 GM/NS 100 ML IV PRN ×2 (22:30)
[2016-07-30] VITALS (34 sets, daily range): BP systolic 125–191; BP diastolic 71–105; PULSE 60–96; RESP 11–24; TEMP 97.4–98.7; O2SAT 78–100
[2016-07-30] MEDS: RESP: ALBUTEROL 2.5 MG/IPRATROPIUM 0.5 MG NEB (SCH) INH ×3 (04:00→20:33)
[2016-07-30] MEDS: HYDROCORTISONE SOD SUCCINATE 100 MG VIAL IV PUSH SCH ×3 (04:49→20:50)
[2016-07-30] MEDS: PIPERACIL-TAZO 3.375 GM PREMIX 50 ML IV SCH ×4 (04:49→20:51)
[2016-07-30] MEDS: LEVOTHYROXINE SODIUM 75 MCG TAB PO SCH (04:49)
[2016-07-30] MEDS: SODIUM CHLOR 0.45% 1000 ML INJ 1,000 ML IV SCH (04:50)
[2016-07-30 05:48] LABS: AUTOMATED NEUTROPHIL # 23.7 TH/MM3 (1.8-7.7); BASOPHIL # 0.1 TH/MM3 (0-0.2); BASOPHIL % 0.2 % (0.0-2.0); EOSINOPHIL % 0.1 % (0.0-4.0); HEMATOCRIT 31.7 % (35.0-46.0); LYMPH % 2.3 % (9.0-44.0); LYMPHOCYTE # 0.6 TH/MM3 (1.0-4.8); MEAN CELL VOLUME 88.1 FL (80.0-100.0); MEAN CORPUSCULAR HEMOGLOBIN 28.9 PG (27.0-34.0); MEAN CORPUSCULAR HGB CONC 32.8 % (32.0-36.0); MONO % 3.7 % (0.0-8.0); NEUT % 93.7 % (16.0-70.0); PLATELET COUNT 142 TH/MM3 (150-450); RED CELL DISTRIBUTION WIDTH 13.4 % (11.6-17.2); WHITE BLOOD COUNT 25.3 TH/MM3 (4.0-11.0)
[2016-07-30 05:51] LABS: HEMO FLAGS AUTO DIFF
[2016-07-30 06:27] LABS: BICARBONATE 23.7 MEQ/L (21.0-32.0); MAGNESIUM 2.2 MG/DL (1.5-2.5); POTASSIUM 3.9 MEQ/L (3.5-5.1)
[2016-07-30] MEDS: INSULIN NovoLIN REGULAR SUPPLEMENTAL SCALE SQ SCH ×4 (06:43→20:35)
[2016-07-30 08:18] LABS: BANDS 17 % (0-6); POLYS (SEG NEUTROPHILS) 82 % (16-70); WBC DIFF SAMPLE 100
[2016-07-30 08:19] LABS: PLATELET ESTIMATE SMEAR LOW (NORMAL); PLATELET MORPHOLOGY NORMAL (NORMAL); SCAN/DIFF FINAL DIFF MANUAL
[2016-07-30] MEDS: PANTOPRAZOLE SODIUM 40 MG VIAL IV SCH (09:00)
[2016-07-30] MEDS: lamoTRIgine 100 MG TAB PO SCH ×2 (09:00→19:31)
[2016-07-30] MEDS: ARTIFICIAL TEARS OPTH SOLN 15 ML BTL EACH EYE SCH ×3 (09:00→18:00)
[2016-07-30] MEDS: DOCUSATE SODIUM 50 MG/SENNA 8.6 MG TAB PO SCH ×2 (09:00→19:31)
[2016-07-30] MEDS: SODIUM CHLORIDE 0.9% FLUSH 10 ML FLUSH IV FLUSH SCH ×2 (09:00→19:31)
[2016-07-30] MEDS: MUPIROCIN 2% OINT 22 GM TUBE TOPICAL SCH ×2 (09:00→19:31)
[2016-07-30] MEDS: SODIUM CHLORIDE 0.9% FLUSH 10 ML FLUSH IVF SCH (09:00)
[2016-07-30] MEDS: MEMANTINE HCL 10 MG TAB PO SCH ×2 (09:00→19:31)
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
[2016-07-30] MEDS ORDERED: DEXTROSE 5% IN WATE 1000ML INJ 1,000 ML IV SCH (09:45)
[2016-07-30] MEDS: VANCOMYCIN 1,000 MG/NS 250 ML IV SCH ×2 (11:00)
--- NOTE | 2016-07-30 15:44 | HHI.IDPN ---
Subjective Subjective Remarks Notes reviewed Temps ok BP ok CT A/P no hydro, has angelina effusions, and some ascites BC with E coli UC with E coli A second BC with GPC WBC slightly better, down to 25K from 29K Antibiotics Vanco Zosyn Past Medical History Hypertension Dyslipidemia Parkinson's disease Hypothyroidism Bipolar disorder Dementia disorder Vitamin D deficiency Migraine headache Chronic benzodiazepine use Osteoporosis/osteoarthritis Constipation Past Surgical History Hysterectomy Allergies: Coded Allergies: Sulfa (Unverified Allergy, Unknown, redness and swelling, 06/16/16) Objective . Vital Signs Date Time Temp Pulse Resp B/P Pulse Ox O2 Delivery O2 Flow Rate FiO2 07/30/16 12:44 74 07/30/16 12:30 98.7 86 19 134/77 96 07/30/16 12:00 99.0 78 15 138/77 96 07/30/16 11:30 98.6 75 13 134/74 95 07/30/16 11:00 98.6 74 15 125/71 95 07/30/16 10:30 98.8 81 15 132/78 95 07/30/16 10:11 71 07/30/16 10:00 98.8 77 11 135/78 96 07/30/16 09:30 98.8 76 16 157/87 97 07/30/16 09:00 98.6 71 21 159/89 98 07/30/16 08:30 98.6 67 13 151/88 99 07/30/16 08:00 98.3 65 12 163/82 100 07/30/16 08:00 77 07/30/16 06:00 69 07/30/16 04:00 69 07/30/16 04:00 98.2 70 14 172/83 98 07/30/16 02:00 96 07/30/16 00:00 72 07/30/16 00:00 98.4 72 12 140/72 07/29/16 22:00 75 07/29/16 20:05 98 21 07/29/16 20:00 99.1 82 21 130/61 07/29/16 20:00 82 07/29/16 17:00 80 07/29/16 17:00 99.1 80 18 127/72 98 07/29/16 16:30 99.3 82 18 128/74 96 07/29/16 16:00 99.3 75 15 134/77 95 07/29/16 07/29/16 07/30/16 15:00 23:00 07:00 Intake Total 1477 ml 398 ml 791 ml Output Total 350 ml 650 ml 300 ml Balance 1127 ml -252 ml 491 ml IV Total 1477 ml 398 ml 791 ml Output Urine Total 350 ml 650 ml 300 ml # Bowel Movements 1 . Laboratory Tests Test 07/29/16 07/29/16 07/30/16 04:45 09:15 05:20 White Blood Count 32.2 TH/MM3 29.6 TH/MM3 25.3 TH/MM3 Red Blood Count 3.61 MIL/MM3 3.55 MIL/MM3 3.60 MIL/MM3 Hemoglobin 10.3 GM/DL 10.3 GM/DL 10.4 GM/DL Hematocrit 32.3 % 31.3 % 31.7 % Mean Corpuscular Volume 89.4 FL 88.3 FL 88.1 FL Mean Corpuscular Hemoglobin 28.7 PG 28.9 PG 28.9 PG Mean Corpuscular Hemoglobin 32.1 % 32.8 % 32.8 % Concent Red Cell Distribution Width 13.6 % 13.5 % 13.4 % Platelet Count 197 TH/MM3 181 TH/MM3 142 TH/MM3 Mean Platelet Volume 7.9 FL 7.5 FL 8.3 FL Neutrophils (%) (Auto) 93.4 % 94.0 % 93.7 % Lymphocytes (%) (Auto) 2.0 % 2.0 % 2.3 % Monocytes (%) (Auto) 4.1 % 3.2 % 3.7 % Eosinophils (%) (Auto) 0.2 % 0.2 % 0.1 % Basophils (%) (Auto) 0.3 % 0.6 % 0.2 % Neutrophils # (Auto) 30.1 TH/MM3 27.8 TH/MM3 23.7 TH/MM3 Lymphocytes # (Auto) 0.6 TH/MM3 0.6 TH/MM3 0.6 TH/MM3 Monocytes # (Auto) 1.3 TH/MM3 0.9 TH/MM3 0.9 TH/MM3 Eosinophils # (Auto) 0.1 TH/MM3 0.1 TH/MM3 0.0 TH/MM3 Basophils # (Auto) 0.1 TH/MM3 0.2 TH/MM3 0.1 TH/MM3 CBC Comment AUTO DIFF DIFF FINAL AUTO DIFF Differential Total Cells 100 100 Counted Neutrophils % (Manual) 81 % 82 % Band Neutrophils % 18 % 17 % Monocytes % 1 % 1 % Neutrophils # (Manual) 31.9 TH/MM3 25.0 TH/MM3 Differential Comment FINAL DIFF FINAL DIFF MANUAL MANUAL Platelet Estimate NORMAL LOW Platelet Morphology Comment NORMAL NORMAL Red Cell Morphology Comment NORMAL NORMAL Laboratory Tests Test 07/28/16 07/29/16 07/29/16 07/29/16 17:00 00:16 04:45 18:35 Lactic Acid Level 3.5 mmol/L 2.3 mmol/L 2.4 mmol/L Phosphorus Level 2.3 MG/DL 2.2 MG/DL Total Creatine Kinase 425 U/L Creatine Kinase MB 3.7 NG/ML Creatine Kinase MB % 0.9 % Troponin I 0.03 NG/ML Thyroid Stimulating Hormone 1.880 uIU/ML 3rd Gen Sodium Level 146 MEQ/L 148 MEQ/L Potassium Level 2.8 MEQ/L 3.2 MEQ/L 3.4 MEQ/L Chloride Level 115 MEQ/L 118 MEQ/L Carbon Dioxide Level 21.2 MEQ/L 24.3 MEQ/L Anion Gap 10 MEQ/L 6 MEQ/L Blood Urea Nitrogen 32 MG/DL 31 MG/DL Creatinine 0.90 MG/DL 0.80 MG/DL Estimat Glomerular Filtration 62 ML/MIN 71 ML/MIN Rate Random Glucose 132 MG/DL 130 MG/DL Calcium Level 6.7 MG/DL 7.0 MG/DL Protein Corrected Calcium 7.9 MG/DL 8.4 MG/DL Magnesium Level 2.5 MG/DL 2.3 MG/DL Total Protein 4.8 GM/DL 4.5 GM/DL Total Bilirubin 0.4 MG/DL Aspartate Amino Transf 27 U/L (AST/SGOT) Alanine Aminotransferase 30 U/L (ALT/SGPT) Alkaline Phosphatase 34 U/L Albumin 1.9 GM/DL Test 07/30/16 05:20 Sodium Level 150 MEQ/L Potassium Level 3.9 MEQ/L Chloride Level 118 MEQ/L Carbon Dioxide Level 23.7 MEQ/L Anion Gap 8 MEQ/L Blood Urea Nitrogen 29 MG/DL Creatinine 0.63 MG/DL Estimat Glomerular Filtration 94 ML/MIN Rate Random Glucose 111 MG/DL Calcium Level 8.1 MG/DL Phosphorus Level 1.7 MG/DL Magnesium Level 2.2 MG/DL Microbiology Date/Time Procedure Status Source Growth 07/28/16 09:45 Aerobic Blood Culture - Preliminary Resulted Blood Peripheral NO GROWTH IN 2 DAYS 07/28/16 09:45 Anaerobic Blood Culture - Preliminary Resulted Escherichia Coli 07/28/16 10:00 Urine Culture - Final Complete Urine Catheterized Urine Escherichia Coli 07/28/16 10:13 Aerobic Blood Culture - Preliminary Resulted Blood Peripheral NO GROWTH IN 2 DAYS 07/28/16 10:13 Anaerobic Blood Culture - Preliminary Resulted Gram Positive Cocci 07/29/16 18:45 Aerobic Blood Culture - Preliminary Resulted Blood Peripheral NO GROWTH IN 1 DAY 07/29/16 18:45 Anaerobic Blood Culture - Preliminary Resulted Blood Peripheral NO GROWTH IN 1 DAY 07/30/16 05:20 Aerobic Blood Culture Received Blood Peripheral Pending 07/30/16 05:20 Anaerobic Blood Culture Received Blood Peripheral Pending Imaging Last 72 hours Impressions Abdomen/Pelvis CT 07/29/16 0000 Signed Impressions: Service Date/Time: Friday, July 29, 2016 12:21 - CONCLUSION: 1. Mild amount of ascites seen around the liver, right pericolic gutter region and the perineal cavity. 2. Stable subcentimeter hepatic lesion representing a cyst or hemangioma. 3. Right renal cyst. The kidneys appear otherwise normal bilaterally. 4. Hubbard catheter in the bladder. 5. Large amount of stool seen in the rectum. There are diverticula seen in the sigmoid region. Significant surrounding inflammatory change is not seen. 6. Mild to moderate bilateral pleural effusions. Sanchez Whitt MD Chest X-Ray 07/28/16 1249 Signed Impressions: Service Date/Time: Thursday, July 28, 2016 13:01 - CONCLUSION: 1. Left central line in superior vena cava. No pneumothorax. Luis Joya MD Chest X-Ray 07/28/16 0934 Signed Impressions: Service Date/Time: Thursday, July 28, 2016 10:15 - CONCLUSION: No acute disease. No significant change has occurred. Luis Joya MD Head CT 07/28/16 0000 Signed Impressions: Service Date/Time: Thursday, July 28, 2016 10:03 - CONCLUSION: 1. Chronic white matter ischemic changes with cortical atrophy. 2. Calcified meningioma right and left middle cranial fossa as above without significant mass effect. Luis Joya MD Physical Exam GENERAL: awake, focusing, tracking, not consistent in following commands. Not in respiratory distress. SKIN: Warm and dry. No generalized rash, no ecchymoses and no evidence of embolic lesions. HEAD: Atraumatic. Normocephalic. No temporal wasting, or tenderness. EYES: [place] conjunctiva. No petechia or hemorrhage. Pupils equal, round and reactive to light. Extraocular movements full and intact. No scleral icterus. No injection or drainage. EARS, NOSE AND THROAT: Nose without bleeding or purulent nasal discharge. No sinus tenderness. Dry oral mucosa. NECK: Trachea midline. Supple and not tender, no meningeal signs CARDIOVASCULAR: Regular rate and rhythm. No murmurs, rubs or gallops heard RESPIRATORY: Clear to auscultation. Breath sounds equal bilaterally. No rales , wheezing or rhonchi ABDOMEN: Flat, soft, nondistended, has diffuse tenderness that seem to be worse on R than L. Bowel sounds present and normoactive. EXTREMITIES: No clubbing, cyanosis, or edema.No joint effusion, has good ROM. No calf tenderness. Well perfused and warm. NEUROLOGICAL: Awake and alert. No Babinski PSYCHIATRIC: Flat affect, following some commands LINE: No evidence of infection Assessment & Plan Remarks IMPRESSION Sepsis, E coli, due to source, with shock - BP better, off pressors - had urinary retention on admission - ?problem with emptying of bladder - no obstruction on CT Has one (+) BC with GPC, ?significance Leukocytosis Hx Bipolar disorder Hx dementia Renal insufficiency due to retention, resolved RECOMMENDATION Follow C/S and adjust Abx Continue Zosyn for GNR and on Vanco for GPC Once C/S finalized, I will simplify Abx Monitor progress Follow CBC Spoke with Georgette Gilman MD Jul 30, 2016 15:43
--- NOTE | 2016-07-30 16:02 | ECHRPT ---
Indication: LV function CONCLUSIONS Nonobstructive prominent basal hypertrophy is present consistent with sigmoid septum. Normal left ventricular size. The left ventricular systolic function is low normal with an estimated ejection fraction in the rang e of 50- 55%. Structurally normal mitral valve except suspicious for small ruptured chord. Trace mitral valve regurgitation. small mitral valve vegetation No aortic valve regurgitation. There is trace tricuspid valve regurgitation. The pulmonary valve is not well visualized. IVC 1.8 BP: / HR: Rhythm: MEASUREMENTS (Male / Female) Normal Values Technical Quality:Technically difficult study 2D ECHO LV Diastolic Diameter PLAX 2.7 cm 4.2 - 5.9 / 3.9 - 5.3 cm LV Systolic Diameter PLAX 2.1 cm IVS Diastolic Thickness 1.4 cm 0.6 - 1.0 / 0.6 - 0.9 cm LVPW Diastolic Thickness 0.8 cm 0.6 - 1.0 / 0.6 - 0.9 cm LV Relative Wall Thickness 0.8 RV Internal Dim ED PLAX 2.5 cm DOPPLER Mitral E Point Velocity 75.0 cm/s Mitral A Point Velocity 76.0 cm/s Mitral E to A Ratio 1.0 LV E' Lateral Velocity 8.1 cm/s Mitral E to LV E' Lateral Ratio 9.3 LV E' Septal Velocity 6.8 cm/s Mitral E to LV E' Septal Ratio 11.0 TR Peak Velocity 236.0 cm/s TR Peak Gradient 22.3 mmHg FINDINGS LEFT VENTRICLE Nonobstructive prominent basal hypertrophy is present consistent with sigmoid septum. Normal left ventricular size. The left ventricular systolic function is low normal with an estimated ejection fraction in the rang e of 50- 55%. RIGHT VENTRICLE Normal right ventricular size and systolic function. LEFT ATRIUM The left atrial size is normal. RIGHT ATRIUM The right atrial size is normal. ATRIAL SEPTUM Normal atrial septal thickness without atrial level shunting by limited color doppler interrogation. AORTA The aortic root and proximal ascending aorta are normal in size on limited imaging. MITRAL VALVE Structurally normal mitral valve except suspicious for small ruptured chord. Trace mitral valve regurgitation. small mitral valve vegetation AORTIC VALVE Trileaflet aortic valve. No aortic valve regurgitation. TRICUSPID VALVE Structurally normal tricuspid valve. There is trace tricuspid valve regurgitation. PULMONARY VALVE The pulmonary valve is not well visualized. VESSELS IVC 1.8 PERICARDIUM No pericardial effusion. Carlitos Elias MD (Electronically Signed) Final Date:30 July 2016 16:01
[2016-07-30] MEDS ORDERED: LABETALOL HCL 100 MG/20 ML VIAL ONE (17:22)
[2016-07-30] MEDS: MORPHINE SULFATE 4 MG/ML INJ IV PRN (22:50)
[2016-07-31] VITALS (13 sets, daily range): BP systolic 142–187; BP diastolic 77–107; PULSE 56–72; RESP 11–22; TEMP 98–99; O2SAT 95–97
[2016-07-31] MEDS: RESP: ALBUTEROL 2.5 MG/IPRATROPIUM 0.5 MG NEB (SCH) INH ×4 (02:57→20:56)
[2016-07-31] MEDS: CHLORHEXIDINE GLUCONATE 2 % 1 PACK (2 CLOTHS) TOP SCH (03:37)
[2016-07-31] MEDS: PIPERACIL-TAZO 3.375 GM PREMIX 50 ML IV SCH ×2 (03:37→08:39)
[2016-07-31] MEDS: HYDROCORTISONE SOD SUCCINATE 100 MG VIAL IV PUSH SCH ×3 (05:00→20:28)
[2016-07-31] MEDS: LEVOTHYROXINE SODIUM 75 MCG TAB PO SCH (05:00)
[2016-07-31 05:21] LABS: AUTOMATED NEUTROPHIL # 15.8 TH/MM3 (1.8-7.7); BASOPHIL % 0.1 % (0.0-2.0); HEMATOCRIT 30.6 % (35.0-46.0); LYMPH % 4.2 % (9.0-44.0); LYMPHOCYTE # 0.7 TH/MM3 (1.0-4.8); MEAN CELL VOLUME 87.6 FL (80.0-100.0); MEAN CORPUSCULAR HEMOGLOBIN 29.3 PG (27.0-34.0); MEAN CORPUSCULAR HGB CONC 33.5 % (32.0-36.0); MONO % 2.3 % (0.0-8.0); NEUT % 93.4 % (16.0-70.0); PLATELET COUNT 144 TH/MM3 (150-450); RED BLOOD COUNT 3.49 MIL/MM3 (4.00-5.30); RED CELL DISTRIBUTION WIDTH 13.2 % (11.6-17.2)
[2016-07-31 05:30] LABS: HEMO FLAGS AUTO DIFF
[2016-07-31 05:52] LABS: BICARBONATE 24.8 MEQ/L (21.0-32.0); POTASSIUM 3.5 MEQ/L (3.5-5.1)
[2016-07-31] MEDS: INSULIN NovoLIN REGULAR SUPPLEMENTAL SCALE SQ SCH ×4 (06:13→20:29)
[2016-07-31] MEDS: SODIUM CHLORIDE 0.9% FLUSH 10 ML FLUSH IV FLUSH SCH ×2 (08:36→20:27)
[2016-07-31] MEDS: PANTOPRAZOLE SODIUM 40 MG VIAL IV SCH (08:36)
[2016-07-31] MEDS: SODIUM CHLORIDE 0.9% FLUSH 10 ML FLUSH IVF SCH (08:37)
[2016-07-31] MEDS: ARTIFICIAL TEARS OPTH SOLN 15 ML BTL EACH EYE SCH ×3 (08:37→18:00)
[2016-07-31] MEDS: DOCUSATE SODIUM 50 MG/SENNA 8.6 MG TAB PO SCH ×2 (08:38→20:29)
[2016-07-31] MEDS: MEMANTINE HCL 10 MG TAB PO SCH ×2 (08:38→20:29)
[2016-07-31] MEDS: MUPIROCIN 2% OINT 22 GM TUBE TOPICAL SCH ×2 (08:38→20:28)
[2016-07-31] MEDS: lamoTRIgine 100 MG TAB PO SCH ×2 (08:38→20:29)
[2016-07-31 08:44] LABS: BANDS 15 % (0-6); METAMYELOCYTES 1 % (0-1); NEUTROPHIL # MANUAL DIFF 16.7 TH/MM3 (1.8-7.7); POLYS (SEG NEUTROPHILS) 82 % (16-70); WBC DIFF SAMPLE 100
--- NOTE | 2016-07-31 08:44 | HHI.PR ---
Subjective Remarks in no acute distress. afebrile. BP noted that was on high side over night. d/w the RN and no other acute issues over night. Objective Vitals Vital Signs Date Time Temp Pulse Resp B/P Pulse Ox O2 Delivery O2 Flow Rate FiO2 07/31/16 06:00 60 07/31/16 04:00 98.0 62 14 142/77 96 07/31/16 04:00 58 07/31/16 02:00 59 07/31/16 00:00 98.2 67 18 167/98 95 07/31/16 00:00 56 07/30/16 22:56 20 07/30/16 22:00 67 07/30/16 20:33 97 21 07/30/16 20:00 97.4 60 11 154/97 97 07/30/16 20:00 60 07/30/16 18:25 84 07/30/16 18:08 99.1 60 18 157/80 100 07/30/16 18:00 99.1 65 24 182/86 100 07/30/16 17:43 99.1 77 18 191/93 100 07/30/16 17:30 99.1 71 16 78 07/30/16 17:20 99.3 78 17 174/94 86 07/30/16 17:01 99.3 74 11 160/102 90 07/30/16 17:00 99.3 78 13 154/104 96 07/30/16 16:30 99.3 73 15 157/85 78 07/30/16 16:00 99.3 80 20 166/105 90 07/30/16 16:00 88 07/30/16 15:30 99.1 76 13 161/92 96 07/30/16 15:00 99.1 74 11 167/91 96 07/30/16 14:30 99.1 80 12 147/87 95 07/30/16 14:00 99.0 76 13 146/83 97 07/30/16 13:30 99.0 68 13 144/82 97 07/30/16 12:44 74 07/30/16 12:30 98.7 86 19 134/77 96 07/30/16 12:00 99.0 78 15 138/77 96 07/30/16 11:30 98.6 75 13 134/74 95 07/30/16 11:00 98.6 74 15 125/71 95 07/30/16 10:30 98.8 81 15 132/78 95 07/30/16 10:11 71 07/30/16 10:00 98.8 77 11 135/78 96 07/30/16 09:30 98.8 76 16 157/87 97 07/30/16 09:00 98.6 71 21 159/89 98 I/O 07/30/16 07/30/16 07/30/16 07/31/16 07/31/16 07/31/16 07:00 15:00 23:00 07:00 15:00 23:00 Intake Total 791 ml 1452 ml 1948 ml 650 ml Output Total 300 ml 375 ml 450 ml 250 ml Balance 491 ml 1077 ml 1498 ml 400 ml IV Total 791 ml 1452 ml 1948 ml 650 ml Output Urine Total 300 ml 375 ml 450 ml 250 ml # Bowel Movements 3 Result Diagram: 07/31/16 0430 07/31/16 0430 Imaging Last Impressions Abdomen/Pelvis CT 07/29/16 0000 Signed Impressions: Service Date/Time: Friday, July 29, 2016 12:21 - CONCLUSION: 1. Mild amount of ascites seen around the liver, right pericolic gutter region and the perineal cavity. 2. Stable subcentimeter hepatic lesion representing a cyst or hemangioma. 3. Right renal cyst. The kidneys appear otherwise normal bilaterally. 4. Hubbard catheter in the bladder. 5. Large amount of stool seen in the rectum. There are diverticula seen in the sigmoid region. Significant surrounding inflammatory change is not seen. 6. Mild to moderate bilateral pleural effusions. Sanchez Whitt MD Chest X-Ray 07/28/16 1249 Signed Impressions: Service Date/Time: Thursday, July 28, 2016 13:01 - CONCLUSION: 1. Left central line in superior vena cava. No pneumothorax. Luis Joya MD Head CT 07/28/16 0000 Signed Impressions: Service Date/Time: Thursday, July 28, 2016 10:03 - CONCLUSION: 1. Chronic white matter ischemic changes with cortical atrophy. 2. Calcified meningioma right and left middle cranial fossa as above without significant mass effect. Luis Joya MD Objective Remarks GENERAL: in no apparent distress. CARDIOVASCULAR: Regular rate and irregular rhythm without murmurs, gallops, or rubs. RESPIRATORY: Clear to auscultation. Breath sounds equal bilaterally. No wheezes , rales, or rhonchi. GASTROINTESTINAL: Abdomen soft, non-tender, nondistended. Normal, active bowel sounds MUSCULOSKELETAL: Extremities without clubbing, cyanosis, or edema. NEURO: awake- but with dementia Procedures central line placement Medications and IVs Current Medications Vancomycin HCl 1000 mg/Sodium Chloride 250 ml @ 250 mls/hr ONCE STAT IV Last administered on 07/28/16 10:32; Start 07/28/16 at 09:34; Stop 07/28/16 at 10:33 ; Status DC Piperacillin Sod/ Tazobactam Sod 100 ml @ 200 mls/hr ONCE STAT IV Last administered on 07/28/16 10:03; Start 07/28/16 at 09:34; Stop 07/28/16 at 10:03 ; Status DC Sodium Chloride 1,000 ml @ 1,000 mls/hr Q1H ONCE IV Last administered on 10:02; Start 07/28/16 at 09:34; Stop 07/28/16 at 10:33; Status DC Sodium Chloride 1,000 ml @ 1,000 mls/hr Q1H ONCE IV Last administered on 10:02; Start 07/28/16 at 09:34; Stop 07/28/16 at 10:33; Status DC Sodium Chloride (NS 1000 ml Inj) 400 ml @ 1,000 mls/hr Q24M ONCE IV Last administered on 07/28/16 10:32; Start 07/28/16 at 09:34; Stop 07/28/16 at 09:57 ; Status DC Acetaminophen (Tylenol Supp) 650 mg ONCE ONCE RECTAL Last administered on 07/28 10:03; Start 07/28/16 at 09:45; Stop 07/28/16 at 09:46; Status DC Sodium Chloride (NS Flush) 2 ml UNSCH PRN IV FLUSH FLUSH AFTER USING IV ACCESS ; Start 07/28/16 at 11:30 Sodium Chloride (NS Flush) 2 ml BID IV FLUSH Last administered on 07/30/16 19: 31; Start 07/28/16 at 21:00 Hydrocortisone Sodium Succinate (SoluCORTEF INJ) 50 mg Q6H IV ; Start 07/28/16 at 12:00; Stop 07/28/16 at 12:04; Status DC Pantoprazole Sodium (Protonix Inj) 40 mg DAILY IV Last administered on 09:00; Start 07/29/16 at 09:00 Albuterol/ Ipratropium 1 ampule 1 ampule Q6HR NEB INH Last administered on 20:05; Start 07/28/16 at 16:00 Pharmacy Profile Note (Vancomycin Consult Pharmacy) 0 ml @ 0 mls/hr UNSCH OTHER ; Start 07/28/16 at 11:30; Stop 07/29/16 at 09:19; Status DC Miscellaneous Information 1 Q361D XX ; Start 07/28/16 at 11:30; Status UNV Chlorhexidine Gluconate (Chlorhexidine 2% Cloth) 3 pack Taper DAILY@04 TOP ; Start 07/29/16 at 04:00; Stop 07/25/17 at 03:59; Status UNV Chlorhexidine Gluconate (Chlorhexidine 2% Cloth) 3 pack UNSCH PRN TOP HYGIENIC CARE; Start 07/28/16 at 11:30; Status UNV Terbutaline Sulfate 1 mg 1 mg UNSCH PRN SQ For Extravasation; Start 07/28/16 at 11:45 Phenylephrine HCl 160 mg/Dextrose 500 ml @ 0 mls/hr TITRATE IV ; Start 07/28/16 at 11:45 Sodium Chloride (NS 1000 ml Inj) 1,000 ml @ 84 mls/hr [id number] IV Last administered on 07/28/16 21:15; Start 07/28/16 at 11:33; Stop 07/29/16 at 08:57 ; Status DC Sodium Chloride (NS Flush) 2 ml UNSCH PRN IV FLUSH FLUSH AFTER USING IV ACCESS ; Start 07/28/16 at 11:45; Stop 07/28/16 at 11:56; Status DC Sodium Chloride (NS Flush) 2 ml BID IV FLUSH ; Start 07/28/16 at 21:00; Stop at 21:00; Status DC Acetaminophen (Tylenol) 650 mg Q6H PRN PO PAIN 1-10 AND/OR FEVER >101F; Start 07/28/16 at 11:45; Stop 07/28/16 at 17:34; Status DC Acetaminophen/ Hydrocodone Bitart (Verdigre 5-325 Mg) 1 tab Q4H PRN PO PAIN SCALE 1 TO 5; Start 07/28/16 at 11:45 Morphine Sulfate (Morphine Inj) 2 mg Q2H PRN IV PAIN SCALE 6 TO 10 Last administered on 07/30/16 22:50; Start 07/28/16 at 11:45 Artificial Tears (Tears Naturale Opth Soln) 1 drop TID EACH EYE Last administered on 07/30/16 13:00; Start 07/28/16 at 13:00 Ondansetron HCl (Zofran Inj) 4 mg Q6H PRN IV NAUSEA OR VOMITING; Start at 11:45 Albuterol Sulfate (Albuterol Neb) 2.5 mg Q2HR NEB PRN INH SOB/WHEEZING; Start 07/28/16 at 11:45 Miscellaneous Information 1 Q361D XX ; Start 07/28/16 at 11:45 Chlorhexidine Gluconate (Chlorhexidine 2% Cloth) 3 pack Taper DAILY@04 TOP Last administered on 07/31/16 03:37; Start 07/29/16 at 04:00; Stop 07/25/17 at 03:59 Chlorhexidine Gluconate (Chlorhexidine 2% Cloth) 3 pack UNSCH PRN TOP HYGIENIC CARE; Start 07/28/16 at 11:45 Senna/Docusate Sodium ([place]-Colace) 1 tab BID PO Last administered on 09:00; Start 07/28/16 at 21:00 Magnesium Hydroxide (Milk Of Magnesia Liq) 30 ml Q12H PRN PO MILD - MODERATE CONSTIPATION; Start 07/28/16 at 11:45 Sennosides (Senokot) 17.2 mg Q12H PRN PO MODERATE - SEVERE CONSTIPATION; Start 07/28/16 at 11:45 Bisacodyl (Dulcolax Supp) 10 mg DAILY PRN RECTAL SEVERE CONSITIPATION; Start at 11:45 Lactulose (Lactulose Liq) 30 ml DAILY PRN PO SEVERE CONSITIPATION; Start at 11:45 Levothyroxine Sodium (Synthroid) 75 mcg DAILY@0600 PO Last administered on 07/31 05:00; Start 07/29/16 at 06:00 Mupirocin 1 applic 1 applic BID TOPICAL Last administered on 07/30/16 09:00; Start 07/28/16 at 21:00 Piperacillin Sod/ Tazobactam Sod (Zosyn 3.375 Gm Premix) 50 ml @ 100 mls/hr Q6H IV Last administered on 07/31/16 03:37; Start 07/28/16 at 16:00 Hydrocortisone Sodium Succinate (SoluCORTEF INJ) 100 mg Q8HR IV PUSH Last administered on 07/31/16 05:00; Start 07/28/16 at 14:00 Sodium Chloride (NS Flush) DAILY IVF Last administered on 07/30/16 09:00; Start 07/29/16 at 09:00 Sodium Chloride (NS Flush) UNSCH PRN IVF SEE PROTOCOL; Start 07/28/16 at 13:00 Dextrose (D50w (Vial) Inj) 50 ml UNSCH PRN IV HYPOGLYCEMIA-SEE COMMENTS; Start 07/28/16 at 13:00 Glucagon (Glucagon Inj) 1 mg UNSCH PRN OTHER HYPOGLYCEMIA-SEE COMMENTS; Start 07/28/16 at 13:00 Insulin Human Regular 1 1 ACHS SLIDING SCALE SQ ; Start 07/28/16 at 16:00 Magnesium Sulfate/ Dextrose (Magnesium Sulfate 1 Gm Premix) 100 ml @ 100 mls/ hr Q1H IV Last administered on 07/28/16 17:36; Start 07/28/16 at 15:00; Stop 07/28/16 at 17:59; Status DC Acetaminophen 650 mg 650 mg Q6H PRN RECTAL fever; Start 07/28/16 at 17:45 Potassium Chloride (KCl 40 Meq Premix Inj) 100 ml @ 25 mls/hr Q4H IV Last administered on 07/29/16 05:09; Start 07/29/16 at 02:30; Stop 07/29/16 at 10:29 ; Status DC Levetriacetam 500 mg 500 mg Q12HR PO ; Start 07/29/16 at 09:00; Stop 07/29/16 at 16:26; Status DC Sodium Chloride 1,000 ml @ 100 mls/hr Q10H IV Last administered on 07/30/16 04:50; Start 07/29/16 at 09:00; Stop 07/30/16 at 09:45; Status DC Pharmacy Profile Note 0 ml @ 0 mls/hr UNSCH OTHER ; Start 07/29/16 at 09:15 Calcium Gluconate 1 gm/Sodium Chloride 110 ml @ 110 mls/hr ONCE ONCE IV Last administered on 07/29/16 09:15; Start 07/29/16 at 09:15; Stop 07/29/16 at 10:14 ; Status DC Vancomycin HCl/ Sodium Chloride (Vancomycin Inj/ NS 250 ml Inj) 250 ml @ 250 mls/hr Q24H IV Last administered on 07/30/16 11:00; Start 07/29/16 at 11:00 Miscellaneous Information SPECIFIC LAB TO BE KAREN... ONCE ONCE .XX ; Start 07/31 at 10:45; Stop 07/31/16 at 10:46 Bupropion HCl (Wellbutrin Sr) 300 mg DAILY PO ; Start 07/29/16 at 12:15; Stop at 12:35; Status DC Lamotrigine (LaMICtal) 200 mg BID PO Last administered on 07/30/16 19:31; Start 07/29/16 at 12:15 Memantine (Namenda) 10 mg BID PO Last administered on 07/30/16 19:31; Start at 12:15 Iohexol (Omnipaque 350 Inj) 94 ml STK-MED ONCE IV Last administered on 12:33; Start 07/29/16 at 12:33; Stop 07/29/16 at 12:34; Status DC Miscellaneous Information D/C ICU ELECTROLYTE ORDERS... UNSCH PRN .XX SEE DOSE INSTRUCTIONS; Start 07/29/16 at 22:30 Miscellaneous Information ICU - CALL ORDERING PHYSIC... UNSCH PRN .XX SEE DOSE INSTRUCTIONS; Start 07/29/16 at 22:30 Potassium Chloride (KCl 40 Meq Premix Inj) 100 ml @ 25 mls/hr UNSCH PRN IV ELECTROLYTE REPLACEMENT Last administered on 07/29/16 23:06; Start 07/29/16 at 22:30 Potassium Bicarb/ Potassium Chloride 50 meq 50 meq UNSCH PRN PO ELECTROLYTE REPLACEMENT; Start 07/29/16 at 22:30 Potassium Chloride 100 ml @ 50 mls/hr UNSCH PRN IV ELECTROLYTE REPLACEMENT; Start 07/29/16 at 22:30 Magnesium Sulfate 4 gm/Sodium Chloride 108 ml @ 54 mls/hr UNSCH PRN IV ELECTROLYTE REPLACEMENT; Start 07/29/16 at 22:30 Magnesium Sulfate/ Sodium Chloride (Magnesium Sulfate Inj/NS Inj) 104 ml @ 52 mls/hr UNSCH PRN IV ELECTROLYTE REPLACEMENT; Start 07/29/16 at 22:30 Magnesium Oxide 800 mg 800 mg UNSCH PRN PO ELECTROLYTE REPLACEMENT; Start 07/29 at 22:30 Sodium Phosphate/ Sodium Chloride (Sodium Phosphate Inj/NS 250 ml Inj) 260 ml @ 43.333 mls/ hr UNSCH PRN IV ELECTROLYTE REPLACEMENT; Start 07/29/16 at 22:30 Potassium Phosphate 2000 mg 2,000 mg UNSCH PRN PO ELECTROLYTE REPLACEMENT; Start 07/29/16 at 22:30 Potassium Phosphate 30 mmol/ Sodium Chloride 260 ml @ 43.333 mls/ hr UNSCH PRN IV ELECTROLYTE REPLACEMENT Last administered on 07/30/16 08:11; Start 07/29 at 22:30 Dextrose (D5W 1000 ml Inj) 1,000 ml @ 75 mls/hr [id number] IV Last administered on 07/30/16 09:45; Start 07/30/16 at 09:45; Stop 07/30/16 at 23:04; Status DC Labetalol HCl (Trandate Inj) 100 mg STK-MED ONCE .ROUTE ; Start 07/30/16 at 17: 22; Stop 07/30/16 at 17:23; Status DC A/P Assessment and Plan A/P septic shock due to UTI- resolved blood cultures from 07/28 with e-coli and gram-positive cocci UC with e-coli blood cultures from 07/29 negative so far follow the blood cultures from 07/30 continue with IV abx; Vanco and Zosyn will taper off Solucortef ID following History of hypertension vasotec prn for now- will start lisinopril soon if BP remains stable Bipolar disorder Meningioma - 1.9 cm right and 1 cm left Depression Dementia disorder Parkinson's disease EEG showed ? seizure activity . Patient is on Lamictal. Neuro is following- Dr. Nelson. Becki d/c by neuro. On Namenda for underlying dementia. Psych is following. CT brain: Meningiomas are stable in size without mass effect or hemorrhage MRI/ CT in 6 months per neurology. acute kidney injury- resolved Hypothyroidism Continue Levoxyl at 75 mics grams by mouth daily. TSH:1.88 Anemia monitor H/H. Access - Peripheral IVs. Left IJ central line placed 07/28 Prophylaxis - GI - Protonix - DVT - SCD/pharmacological prophylaxis contraindicated in light of meningiomas transfer to telemetry. continue PT/OT/ST. d/w the RN. Chapin Guy MD Jul 31, 2016 08:44
[2016-07-31 08:45] LABS: PLATELET ESTIMATE SMEAR LOW (NORMAL); PLATELET MORPHOLOGY ENLARGED (NORMAL); SCAN/DIFF FINAL DIFF MANUAL
[2016-07-31] MEDS ORDERED: ENALAPRILAT 1.25 MG/ML VIAL IV PUSH PRN (08:45)
[2016-07-31] MEDS ORDERED: PHARMACY ORDERED LAB ONE (10:45)
--- NOTE | 2016-07-31 11:04 | HHI.IDPN ---
Subjective Subjective Remarks Notes reviewed Temps ok BP ok CT A/P no hydro, has angelina effusions, and some ascites BC with E coli UC with E coli A second BC with GPC, no ID yet WBC down to 17K Antibiotics Vanco Zosyn Lines RSC TLC Past Medical History Hypertension Dyslipidemia Parkinson's disease Hypothyroidism Bipolar disorder Dementia disorder Vitamin D deficiency Migraine headache Chronic benzodiazepine use Osteoporosis/osteoarthritis Constipation Past Surgical History Hysterectomy Allergies: Coded Allergies: Sulfa (Unverified Allergy, Unknown, redness and swelling, 06/16/16) Objective . Vital Signs Date Time Temp Pulse Resp B/P Pulse Ox O2 Delivery O2 Flow Rate FiO2 07/31/16 06:00 60 07/31/16 04:00 98.0 62 14 142/77 96 07/31/16 04:00 58 07/31/16 02:00 59 07/31/16 00:00 98.2 67 18 167/98 95 07/31/16 00:00 56 07/30/16 22:56 20 07/30/16 22:00 67 07/30/16 20:33 97 21 07/30/16 20:00 97.4 60 11 154/97 97 07/30/16 20:00 60 07/30/16 18:25 84 07/30/16 18:08 99.1 60 18 157/80 100 07/30/16 18:00 99.1 65 24 182/86 100 07/30/16 17:43 99.1 77 18 191/93 100 07/30/16 17:30 99.1 71 16 78 07/30/16 17:20 99.3 78 17 174/94 86 07/30/16 17:01 99.3 74 11 160/102 90 07/30/16 17:00 99.3 78 13 154/104 96 07/30/16 16:30 99.3 73 15 157/85 78 07/30/16 16:00 99.3 80 20 166/105 90 07/30/16 16:00 88 07/30/16 15:30 99.1 76 13 161/92 96 07/30/16 15:00 99.1 74 11 167/91 96 07/30/16 14:30 99.1 80 12 147/87 95 07/30/16 14:00 99.0 76 13 146/83 97 07/30/16 13:30 99.0 68 13 144/82 97 07/30/16 12:44 74 07/30/16 12:30 98.7 86 19 134/77 96 07/30/16 12:00 99.0 78 15 138/77 96 07/30/16 11:30 98.6 75 13 134/74 95 07/30/16 11:00 98.6 74 15 125/71 95 07/30/16 07/30/16 07/31/16 15:00 23:00 07:00 Intake Total 1452 ml 1948 ml 650 ml Output Total 375 ml 450 ml 250 ml Balance 1077 ml 1498 ml 400 ml IV Total 1452 ml 1948 ml 650 ml Output Urine Total 375 ml 450 ml 250 ml # Bowel Movements 3 . Laboratory Tests Test 07/30/16 07/31/16 05:20 04:30 White Blood Count 25.3 TH/MM3 17.0 TH/MM3 Red Blood Count 3.60 MIL/MM3 3.49 MIL/MM3 Hemoglobin 10.4 GM/DL 10.2 GM/DL Hematocrit 31.7 % 30.6 % Mean Corpuscular Volume 88.1 FL 87.6 FL Mean Corpuscular Hemoglobin 28.9 PG 29.3 PG Mean Corpuscular Hemoglobin 32.8 % 33.5 % Concent Red Cell Distribution Width 13.4 % 13.2 % Platelet Count 142 TH/MM3 144 TH/MM3 Mean Platelet Volume 8.3 FL 9.0 FL Neutrophils (%) (Auto) 93.7 % 93.4 % Lymphocytes (%) (Auto) 2.3 % 4.2 % Monocytes (%) (Auto) 3.7 % 2.3 % Eosinophils (%) (Auto) 0.1 % 0.0 % Basophils (%) (Auto) 0.2 % 0.1 % Neutrophils # (Auto) 23.7 TH/MM3 15.8 TH/MM3 Lymphocytes # (Auto) 0.6 TH/MM3 0.7 TH/MM3 Monocytes # (Auto) 0.9 TH/MM3 0.4 TH/MM3 Eosinophils # (Auto) 0.0 TH/MM3 0.0 TH/MM3 Basophils # (Auto) 0.1 TH/MM3 0.0 TH/MM3 CBC Comment AUTO DIFF AUTO DIFF Differential Total Cells 100 100 Counted Neutrophils % (Manual) 82 % 82 % Band Neutrophils % 17 % 15 % Monocytes % 1 % 1 % Neutrophils # (Manual) 25.0 TH/MM3 16.7 TH/MM3 Differential Comment FINAL DIFF FINAL DIFF MANUAL MANUAL Platelet Estimate LOW LOW Platelet Morphology Comment NORMAL ENLARGED Red Cell Morphology Comment NORMAL Lymphocytes % 1 % Metamyelocytes 1 % Laboratory Tests Test 07/29/16 07/30/16 07/31/16 18:35 05:20 04:30 Potassium Level 3.4 MEQ/L 3.9 MEQ/L 3.5 MEQ/L Sodium Level 150 MEQ/L 145 MEQ/L Chloride Level 118 MEQ/L 112 MEQ/L Carbon Dioxide Level 23.7 MEQ/L 24.8 MEQ/L Anion Gap 8 MEQ/L 8 MEQ/L Blood Urea Nitrogen 29 MG/DL 25 MG/DL Creatinine 0.63 MG/DL 0.60 MG/DL Estimat Glomerular Filtration 94 ML/MIN 99 ML/MIN Rate Random Glucose 111 MG/DL 143 MG/DL Calcium Level 8.1 MG/DL 7.8 MG/DL Phosphorus Level 1.7 MG/DL 2.8 MG/DL Magnesium Level 2.2 MG/DL Microbiology Date/Time Procedure Status Source Growth 07/29/16 18:45 Aerobic Blood Culture - Preliminary Resulted Blood Peripheral NO GROWTH IN 1 DAY 07/29/16 18:45 Anaerobic Blood Culture - Preliminary Resulted Blood Peripheral NO GROWTH IN 1 DAY 07/30/16 05:20 Aerobic Blood Culture Received Blood Peripheral Pending 07/30/16 05:20 Anaerobic Blood Culture Received Blood Peripheral Pending Imaging Last 72 hours Impressions Abdomen/Pelvis CT 07/29/16 0000 Signed Impressions: Service Date/Time: Friday, July 29, 2016 12:21 - CONCLUSION: 1. Mild amount of ascites seen around the liver, right pericolic gutter region and the perineal cavity. 2. Stable subcentimeter hepatic lesion representing a cyst or hemangioma. 3. Right renal cyst. The kidneys appear otherwise normal bilaterally. 4. Hubbard catheter in the bladder. 5. Large amount of stool seen in the rectum. There are diverticula seen in the sigmoid region. Significant surrounding inflammatory change is not seen. 6. Mild to moderate bilateral pleural effusions. Sanchez Whitt MD Chest X-Ray 07/28/16 1249 Signed Impressions: Service Date/Time: Thursday, July 28, 2016 13:01 - CONCLUSION: 1. Left central line in superior vena cava. No pneumothorax. Luis Joya MD Chest X-Ray 07/28/16 0934 Signed Impressions: Service Date/Time: Thursday, July 28, 2016 10:15 - CONCLUSION: No acute disease. No significant change has occurred. Luis Joya MD Head CT 07/28/16 0000 Signed Impressions: Service Date/Time: Thursday, July 28, 2016 10:03 - CONCLUSION: 1. Chronic white matter ischemic changes with cortical atrophy. 2. Calcified meningioma right and left middle cranial fossa as above without significant mass effect. uLis Joya MD Physical Exam GENERAL: awake, focusing, tracking, not consistent in following commands. Not in respiratory distress. SKIN: Warm and dry. No generalized rash, no ecchymoses and no evidence of embolic lesions. HEAD: Atraumatic. Normocephalic. No temporal wasting, or tenderness. EYES: [place] conjunctiva. No petechia or hemorrhage. Pupils equal, round and reactive to light. No scleral icterus. No injection or drainage. EARS, NOSE AND THROAT: Nose without bleeding or purulent nasal discharge. No sinus tenderness. Dry oral mucosa. NECK: Trachea midline. Supple and not tender, no meningeal signs CARDIOVASCULAR: Regular rate and rhythm. No murmurs, rubs or gallops heard RESPIRATORY: Clear to auscultation. Breath sounds equal bilaterally. No rales , wheezing or rhonchi ABDOMEN: Flat, soft, nondistended, has diffuse tenderness that seem to be worse on R than L. Bowel sounds present and normoactive. EXTREMITIES: No clubbing, cyanosis, or edema.No joint effusion, has good ROM. No calf tenderness. Well perfused and warm. NEUROLOGICAL: Awake and alert. No Babinski PSYCHIATRIC: Flat affect, following some commands LINE: No evidence of infection Assessment & Plan Remarks IMPRESSION Sepsis, E coli, due to source, with shock - BP better, off pressors - had urinary retention on admission - ?problem with emptying of bladder - no obstruction on CT Has one (+) BC with GPC, ?significance Leukocytosis Hx Bipolar disorder Hx dementia Renal insufficiency due to retention, resolved RECOMMENDATION Follow C/S and adjust Abx Change Zosyn to Rocephin Continue Vanco until GPC identified Monitor progress Follow CBC Spoke with Georgette Gilman MD Jul 31, 2016 11:04
[2016-07-31] MEDS: cefTRIAXone INJ 2,000 MG in SODIUM CHLORIDE 0.9% INJ 100 ML IV SCH (12:31)
[2016-07-31] MEDS: VANCOMYCIN 1,000 MG/NS 250 ML IV SCH ×4 (12:33→23:29)
[2016-07-31] MEDS: MORPHINE SULFATE 4 MG/ML INJ IV PRN (17:05)
[2016-08-01] VITALS (7 sets, daily range): BP systolic 143–188; BP diastolic 73–98; PULSE 65–86; RESP 16–20; TEMP 97.2–98.2; O2SAT 92–95
[2016-08-01] MEDS: RESP: ALBUTEROL 2.5 MG/IPRATROPIUM 0.5 MG NEB (SCH) INH ×4 (02:58→20:09)
[2016-08-01] MEDS: CHLORHEXIDINE GLUCONATE 2 % 1 PACK (2 CLOTHS) TOP SCH (04:00)
[2016-08-01 05:25] LABS: BICARBONATE 22.7 MEQ/L (21.0-32.0); POTASSIUM 3.4 MEQ/L (3.5-5.1)
[2016-08-01] MEDS: INSULIN NovoLIN REGULAR SUPPLEMENTAL SCALE SQ SCH (05:28)
[2016-08-01 05:41] LABS: AUTOMATED NEUTROPHIL # 11.5 TH/MM3 (1.8-7.7); BASOPHIL % 0.1 % (0.0-2.0); EOSINOPHIL % 0.3 % (0.0-4.0); HEMATOCRIT 33.9 % (35.0-46.0); LYMPH % 9.4 % (9.0-44.0); LYMPHOCYTE # 1.3 TH/MM3 (1.0-4.8); MEAN CELL VOLUME 86.9 FL (80.0-100.0); MEAN CORPUSCULAR HGB CONC 33.4 % (32.0-36.0); MONO % 4.3 % (0.0-8.0); NEUT % 85.9 % (16.0-70.0); PLATELET COUNT 189 TH/MM3 (150-450); RED CELL DISTRIBUTION WIDTH 13.3 % (11.6-17.2); WHITE BLOOD COUNT 13.4 TH/MM3 (4.0-11.0)
[2016-08-01 05:43] LABS: HEMO FLAGS AUTO DIFF
[2016-08-01] MEDS: LEVOTHYROXINE SODIUM 75 MCG TAB PO SCH (05:59)
[2016-08-01] MEDS: HYDROCORTISONE SOD SUCCINATE 100 MG VIAL IV PUSH SCH ×2 (06:02→20:42)
[2016-08-01 07:56] LABS: PLATELET ESTIMATE SMEAR NORMAL (NORMAL); PLATELET MORPHOLOGY ENLARGED (NORMAL); SCAN/DIFF AUTO DIFF CONFIRMED
[2016-08-01] MEDS: MUPIROCIN 2% OINT 22 GM TUBE TOPICAL SCH ×2 (09:00→20:43)
[2016-08-01] MEDS: DOCUSATE SODIUM 50 MG/SENNA 8.6 MG TAB PO SCH ×2 (09:00→20:42)
[2016-08-01] MEDS ORDERED: POTASSIUM CHLORIDE 10 MEQ CONTROLLED RELEASE TAB PO ONE (09:00)
--- NOTE | 2016-08-01 09:11 | HHI.PR ---
Subjective Remarks Follow-up septic shock and UTI. Patient awake but confused according to this is her baseline. Made aware of echo results, requests consultation with patient's aircraft instrument mechanic Dr. Nava. Objective Vitals Vital Signs Date Time Temp Pulse Resp B/P Pulse Ox O2 Delivery O2 Flow Rate FiO2 08/01/16 08:43 95 08/01/16 08:00 97.2 65 16 188/88 94 181/88 170/84 08/01/16 04:00 97.3 66 16 143/73 94 08/01/16 00:00 97.5 72 18 188/95 92 07/31/16 21:40 61 07/31/16 20:56 95 21 07/31/16 20:00 98.2 65 14 180/107 95 07/31/16 18:00 59 07/31/16 17:10 18 07/31/16 16:00 66 07/31/16 16:00 99.0 66 13 187/103 97 07/31/16 14:00 66 07/31/16 12:00 68 07/31/16 12:00 98.8 68 11 169/94 97 07/31/16 10:00 72 I/O 07/31/16 07/31/16 07/31/16 08/01/16 08/01/16 08/01/16 07:00 15:00 23:00 07:00 15:00 23:00 Intake Total 650 ml 1392 ml 381 ml 370 ml Output Total 250 ml 350 ml 500 ml Balance 400 ml 1042 ml 381 ml -130 ml Intake Oral 220 ml 120 ml IV Total 650 ml 1172 ml 381 ml 250 ml Output Urine Total 250 ml 350 ml 500 ml # Bowel Movements 0 0 Result Diagram: 08/01/16 0500 08/01/16 0444 Imaging Last Impressions Abdomen/Pelvis CT 07/29/16 0000 Signed Impressions: Service Date/Time: Friday, July 29, 2016 12:21 - CONCLUSION: 1. Mild amount of ascites seen around the liver, right pericolic gutter region and the perineal cavity. 2. Stable subcentimeter hepatic lesion representing a cyst or hemangioma. 3. Right renal cyst. The kidneys appear otherwise normal bilaterally. 4. Hubbard catheter in the bladder. 5. Large amount of stool seen in the rectum. There are diverticula seen in the sigmoid region. Significant surrounding inflammatory change is not seen. 6. Mild to moderate bilateral pleural effusions. Sanchez Whitt MD Chest X-Ray 07/28/16 1249 Signed Impressions: Service Date/Time: Thursday, July 28, 2016 13:01 - CONCLUSION: 1. Left central line in superior vena cava. No pneumothorax. Luis Joya MD Head CT 07/28/16 0000 Signed Impressions: Service Date/Time: Thursday, July 28, 2016 10:03 - CONCLUSION: 1. Chronic white matter ischemic changes with cortical atrophy. 2. Calcified meningioma right and left middle cranial fossa as above without significant mass effect. Luis Joya MD Objective Remarks GENERAL: Well-developed, well-nourished in no distress SKIN: Warm and dry. HEAD: Atraumatic. Normocephalic. EYES: Pupils equal and round. No scleral icterus. No injection or drainage. ENT: No nasal bleeding or discharge. Mucous membranes pink and moist. NECK: Trachea midline. No JVD. Central line in left IJ CARDIOVASCULAR: Regular rate and rhythm. RESPIRATORY: No accessory muscle use. Clear to auscultation. Breath sounds equal bilaterally. GASTROINTESTINAL: Abdomen soft, non-tender, nondistended. MUSCULOSKELETAL: Extremities without clubbing, cyanosis but with bilateral lower extremity pitting edema. No obvious deformities. NEUROLOGICAL: Awake and alert. Confused No obvious cranial nerve deficits. Motor grossly within normal limits. Five out of 5 muscle strength in the arms and legs. Normal speech. Procedures central line placement A/P Problem List: (1) Bipolar disorder ICD Code: F31.9 Status: Chronic (2) Septic shock ICD Code: A41.9 Status: Acute (3) UTI (urinary tract infection) ICD Code: N39.0 Status: Acute (4) Migraine headache ICD Code: G43.909 Status: Chronic (5) Vitamin D deficiency ICD Code: E55.9 Status: Chronic (6) History of hypertension ICD Code: Z86.79 Status: Chronic (7) Dyslipidemia ICD Code: E78.5 Status: Chronic (8) Meningioma ICD Code: D32.9 Status: Acute (9) Hypothyroidism ICD Code: E03.9 Status: Acute (10) Chronic prescription benzodiazepine use ICD Code: Z79.899 Status: Chronic (11) Parkinsons disease ICD Code: G20 Status: Chronic (12) Bipolar 1 disorder ICD Code: F31.9 Status: Chronic (13) Severe sepsis with acute organ dysfunction ICD Code: A41.9 Status: Acute (14) Leukocytosis ICD Code: D72.829 Status: Acute (15) Acute kidney injury (nontraumatic) ICD Code: N17.9 Status: Acute (16) Altered mental status ICD Code: R41.82 Status: Acute (17) Dementia ICD Code: F03.90 Status: Chronic (18) Lactic acidosis ICD Code: E87.2 Status: Resolved Assessment and Plan Septic shock due to UTI- resolved blood cultures from 07/28 with e-coli and gram-positive cocci UCx with e-coli blood cultures from 07/29 negative so far follow the blood cultures from 07/30 continue with IV abx; Vanco and Rocephin will taper off Solucortef to 25 mg every 12 hours Urinary retention. Discontinue Hubbard catheter. Bladder scan every 8 hours reinsert Hubbard catheter if urine over 400 mL History of hypertension now with mild orthostasis vasotec prn for now if standing BP over 180/100. 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 Consult patient's aircraft instrument mechanic Bipolar Dementia disorder Parkinson's disease EEG showed ? seizure activity . Patient is on Lamictal. Neuro is following- Dr. Scott. Connell d/c by neuro. On Namenda for underlying dementia. Psych is following. CT brain: Meningiomas are stable in size without mass effect or hemorrhage MRI/ CT in 6 months per neurology. acute kidney injury- resolved Hypothyroidism Continue Levoxyl at 75 mics grams by mouth daily. TSH:1.88 Anemia monitor H/H. Constipation . Continue bowel regimen Access - Peripheral IVs then dc Left IJ central line placed 07/28 Prophylaxis - GI - Protonix - DVT - SCD/pharmacological prophylaxis contraindicated in light of meningiomas Discharge Planning Not ready for discharge Problem Qualifiers (1) Bipolar disorder: Qualified Code: F31.9 - Bipolar affective disorder, remission status unspecified (2) UTI (urinary tract infection): Qualified Code: N39.0 - Urinary tract infection without hematuria, site unspecified (3) Migraine headache: Qualified Code: G43.909 - Migraine without status migrainosus, not intractable , unspecified migraine type (4) Leukocytosis: Qualified Code: D72.829 - Leukocytosis, unspecified type (5) Altered mental status: Qualified Code: R40.1 - Stupor (6) Dementia: Qualified Code: G30.9 - Alzheimer's dementia without behavioral disturbance, unspecified timing of dementia onset Sterling Branch MD Aug 01, 2016 09:10
[2016-08-01] MEDS ORDERED: ENALAPRILAT 1.25 MG/ML VIAL IV PRN (09:15)
[2016-08-01] MEDS ORDERED: cloNIDine HCL 0.1 MG TAB PO PRN (09:15)
[2016-08-01] MEDS ORDERED: LISINOPRIL 10 MG TAB PO SCH (09:15)
[2016-08-01] MEDS: MEMANTINE HCL 10 MG TAB PO SCH ×2 (11:32→20:42)
[2016-08-01] MEDS: lamoTRIgine 100 MG TAB PO SCH ×2 (11:32→20:43)
[2016-08-01] MEDS: SODIUM CHLORIDE 0.9% FLUSH 10 ML FLUSH IV FLUSH SCH ×2 (11:34→20:43)
[2016-08-01] MEDS: SODIUM CHLORIDE 0.9% FLUSH 10 ML FLUSH IVF SCH (11:34)
[2016-08-01] MEDS: ARTIFICIAL TEARS OPTH SOLN 15 ML BTL EACH EYE SCH ×3 (11:34→18:08)
[2016-08-01] MEDS: VANCOMYCIN 1,000 MG/NS 250 ML IV SCH ×2 (11:42)
[2016-08-01] MEDS ORDERED: POTASSIUM CHLORIDE 25 MEQ EFFERVESCENT TAB PO ONE (13:15)
[2016-08-01] MEDS: cefTRIAXone INJ 2,000 MG in SODIUM CHLORIDE 0.9% INJ 100 ML IV SCH (14:08)
--- NOTE | 2016-08-01 15:42 | MB ---
cc: UNIQUE VITAL M.D. DATE OF CONSULTATION: 08/01/2016. REASON FOR CONSULTATION: Suspected ruptured mitral valve chord. HISTORY OF PRESENT ILLNESS The patient is a 66-year-old white female, previously evaluated in our office by Dr. Michael Nava, with a history of hypertension, hyperlipidemia, hypothyroidism, dementia, bipolar disorder, parkinsonism who was brought to the hospital from her shelter facility due to mental status changes. Workup has revealed gram-negative eduardo bacteremia (E coli) due to a urinary tract infection. An echocardiogram was obtained here in the hospital and reportedly showed a possible torn mitral valve chordae. Limited history is obtained from the patient. Some history is obtained from her who is at bedside. She has had no definite recent chest pain, shortness of breath, dizziness, syncope. Recently she has had minimal pedal edema. For the most part, she is sedentary. There has been no definite paroxysmal nocturnal dyspnea. PAST MEDICAL HISTORY: 1. Hypertension 2. Hypothyroidism. 3. Dimension 4. Hyperlipidemia. 5. Bipolar disorder. 6. Parkinsonism. CURRENT CARDIAC MEDICATIONS: Atorvastatin 20 milligrams p.o. at bedtime. ALLERGIES: SULFA. FAMILY HISTORY: Noncontributory. SOCIAL HISTORY: The patient is a former smoker. There is no history of alcohol abuse. REVIEW OF SYSTEMS: Review of systems as in the history of present illness otherwise negative or noncontributory. She also denies abdominal pain, cough, fever, nausea. PHYSICAL EXAMINATION: VITAL SIGNS: Her blood pressure is 172/90 with a pulse of 83, respirations 17. GENERAL: In general she is a well-developed thin white female in no acute distress HEAD, EYES, EARS, NOSE, THROAT: On HEENT examination jugular venous pressure is normal. Carotid pulses are 2+ bilaterally and without bruits. CHEST: Examination of the chest reveals clear lung cunha anteriorly. CARDIAC: On cardiac examination, she has a regular rhythm and rate without S3,S4 or murmur. ABDOMEN: On abdominal examination, she has a soft, nontender abdomen. Bowel sounds are present. There is no definite hepatosplenomegaly. EXTREMITIES: Examination of the extremities reveals no clubbing or cyanosis. There is trace pretibial edema bilaterally. LABORATORY DATA: Laboratory data includes WBC 13.4, hemoglobin 11.3, platelets 189,000, potassium 3.4, BUN 15, creatinine 0.59. IMAGING STUDIES: Chest x-ray shows no acute disease. EKG: EKG shows sinus rhythm, nonspecific ST abnormality. IMPRESSION: Overall stable cardiac status in this 66-year-old white female with a history of hyperlipidemia, hypertension, dementia, hypothyroidism, bipolar disorder now admitted with E coli bacteremia due to urinary tract infection. I have been asked to see the patient for suspected torn mitral valve chordae. Her echocardiogram images have been reviewed. I would agree with the interpretation. There is what appears to be a torn mitral valve chordae tendinae. There is no evidence for rupture of her papillary muscle. There is minimal mitral regurgitation. Left ventricular function is normal. The valve does not appear to have vegetation. RECOMMENDATIONS: No specific recommendations from a cardiac standpoint at this time. The echocardiogram findings were reviewed with the patient and her . MD WILMA Callahan/TAMIE /3:23 PM /3:34 PM ROSA
--- NOTE | 2016-08-01 16:03 | HHI.IDPN ---
Subjective Subjective Remarks Notes reviewed Temps ok BP ok CT A/P no hydro, has angelina effusions, and some ascites BC with E coli UC with E coli No new (+) BC with E coli WBC improving Hubbard has been removed today states the patient is agitated today Antibiotics Rocephin Lines TLC Past Medical History Hypertension Dyslipidemia Parkinson's disease Hypothyroidism Bipolar disorder Dementia disorder Vitamin D deficiency Migraine headache Chronic benzodiazepine use Osteoporosis/osteoarthritis Constipation Past Surgical History Hysterectomy Allergies: Coded Allergies: Sulfa (Unverified Allergy, Unknown, redness and swelling, 06/16/16) Lisinopril (Verified Adverse Reaction, Severe, Cough, 08/01/16) Objective . Vital Signs Date Time Temp Pulse Resp B/P Pulse Ox O2 Delivery O2 Flow Rate FiO2 08/01/16 12:00 97.9 83 17 172/90 93 168/98 150/98 08/01/16 08:43 95 08/01/16 08:00 97.2 65 16 188/88 94 181/88 170/84 08/01/16 04:00 97.3 66 16 143/73 94 08/01/16 00:00 97.5 72 18 188/95 92 07/31/16 21:40 61 07/31/16 20:56 95 21 07/31/16 20:00 98.2 65 14 180/107 95 07/31/16 18:00 59 07/31/16 17:10 18 07/31/16 16:00 66 07/31/16 16:00 99.0 66 13 187/103 97 07/31/16 07/31/16 08/01/16 15:00 23:00 07:00 Intake Total 1392 ml 381 ml 370 ml Output Total 350 ml 500 ml Balance 1042 ml 381 ml -130 ml Intake Oral 220 ml 120 ml IV Total 1172 ml 381 ml 250 ml Output Urine Total 350 ml 500 ml # Bowel Movements 0 0 . Laboratory Tests Test 07/31/16 08/01/16 04:30 05:00 White Blood Count 17.0 TH/MM3 13.4 TH/MM3 Red Blood Count 3.49 MIL/MM3 3.90 MIL/MM3 Hemoglobin 10.2 GM/DL 11.3 GM/DL Hematocrit 30.6 % 33.9 % Mean Corpuscular Volume 87.6 FL 86.9 FL Mean Corpuscular Hemoglobin 29.3 PG 29.0 PG Mean Corpuscular Hemoglobin 33.5 % 33.4 % Concent Red Cell Distribution Width 13.2 % 13.3 % Platelet Count 144 TH/MM3 189 TH/MM3 Mean Platelet Volume 9.0 FL 8.8 FL Neutrophils (%) (Auto) 93.4 % 85.9 % Lymphocytes (%) (Auto) 4.2 % 9.4 % Monocytes (%) (Auto) 2.3 % 4.3 % Eosinophils (%) (Auto) 0.0 % 0.3 % Basophils (%) (Auto) 0.1 % 0.1 % Neutrophils # (Auto) 15.8 TH/MM3 11.5 TH/MM3 Lymphocytes # (Auto) 0.7 TH/MM3 1.3 TH/MM3 Monocytes # (Auto) 0.4 TH/MM3 0.6 TH/MM3 Eosinophils # (Auto) 0.0 TH/MM3 0.0 TH/MM3 Basophils # (Auto) 0.0 TH/MM3 0.0 TH/MM3 CBC Comment AUTO DIFF AUTO DIFF Differential Total Cells 100 Counted Neutrophils % (Manual) 82 % Band Neutrophils % 15 % Lymphocytes % 1 % Monocytes % 1 % Neutrophils # (Manual) 16.7 TH/MM3 Metamyelocytes 1 % Differential Comment FINAL DIFF AUTO DIFF MANUAL CONFIRMED Platelet Estimate LOW NORMAL Platelet Morphology Comment ENLARGED ENLARGED Laboratory Tests Test 07/31/16 08/01/16 04:30 04:44 Sodium Level 145 MEQ/L 143 MEQ/L Potassium Level 3.5 MEQ/L 3.4 MEQ/L Chloride Level 112 MEQ/L 112 MEQ/L Carbon Dioxide Level 24.8 MEQ/L 22.7 MEQ/L Anion Gap 8 MEQ/L 8 MEQ/L Blood Urea Nitrogen 25 MG/DL 15 MG/DL Creatinine 0.60 MG/DL 0.59 MG/DL Estimat Glomerular Filtration 99 ML/MIN 101 ML/MIN Rate Random Glucose 143 MG/DL 130 MG/DL Calcium Level 7.8 MG/DL 7.8 MG/DL Phosphorus Level 2.8 MG/DL Magnesium Level 1.8 MG/DL Microbiology Date/Time Procedure Status Source Growth 07/29/16 18:45 Aerobic Blood Culture - Preliminary Resulted Blood Peripheral NO GROWTH IN 3 DAYS 07/29/16 18:45 Anaerobic Blood Culture - Preliminary Resulted Blood Peripheral NO GROWTH IN 3 DAYS 07/30/16 05:20 Aerobic Blood Culture - Preliminary Resulted Blood Peripheral NO GROWTH IN 2 DAYS 07/30/16 05:20 Anaerobic Blood Culture - Preliminary Resulted Blood Peripheral NO GROWTH IN 2 DAYS Imaging Last 72 hours Impressions Abdomen/Pelvis CT 07/29/16 0000 Signed Impressions: Service Date/Time: Friday, July 29, 2016 12:21 - CONCLUSION: 1. Mild amount of ascites seen around the liver, right pericolic gutter region and the perineal cavity. 2. Stable subcentimeter hepatic lesion representing a cyst or hemangioma. 3. Right renal cyst. The kidneys appear otherwise normal bilaterally. 4. Hubbard catheter in the bladder. 5. Large amount of stool seen in the rectum. There are diverticula seen in the sigmoid region. Significant surrounding inflammatory change is not seen. 6. Mild to moderate bilateral pleural effusions. Sanchez Whitt MD Chest X-Ray 07/28/16 1249 Signed Impressions: Service Date/Time: Thursday, July 28, 2016 13:01 - CONCLUSION: 1. Left central line in superior vena cava. No pneumothorax. Luis Joya MD Chest X-Ray 07/28/16 0934 Signed Impressions: Service Date/Time: Thursday, July 28, 2016 10:15 - CONCLUSION: No acute disease. No significant change has occurred. Luis Joya MD Head CT 07/28/16 0000 Signed Impressions: Service Date/Time: Thursday, July 28, 2016 10:03 - CONCLUSION: 1. Chronic white matter ischemic changes with cortical atrophy. 2. Calcified meningioma right and left middle cranial fossa as above without significant mass effect. Luis Joya MD Physical Exam GENERAL: awake, focusing, tracking, not consistent in following commands. Not in respiratory distress. SKIN: Warm and dry. No generalized rash HEAD: Atraumatic. Normocephalic. No temporal wasting, or tenderness. EYES: [place] conjunctiva. No petechia or hemorrhage. Pupils equal, round and reactive to light. No scleral icterus. No injection or drainage. EARS, NOSE AND THROAT: Nose without bleeding or purulent nasal discharge. No sinus tenderness. Dry oral mucosa. NECK: Trachea midline. Supple and not tender, no meningeal signs CARDIOVASCULAR: Regular rate and rhythm. No murmurs, rubs or gallops heard RESPIRATORY: Clear to auscultation. Breath sounds equal bilaterally. No rales , wheezing or rhonchi ABDOMEN: Flat, soft, nondistended, not tender. Bowel sounds present and normoactive. EXTREMITIES: No clubbing, cyanosis, or edema.No joint effusion, has good ROM. No calf tenderness. Well perfused and warm. NEUROLOGICAL: Awake and alert. No Babinski PSYCHIATRIC: Flat affect, following some commands LINE: No evidence of infection Assessment & Plan Remarks IMPRESSION Sepsis, E coli, due to source, with shock - BP better, off pressors - had urinary retention on admission - ?problem with emptying of bladder - no obstruction on CT Has one (+) BC with GPC, prob contaminant - no new (+) BC Leukocytosis, improving Hx Bipolar disorder Hx dementia Renal insufficiency due to retention, resolved RECOMMENDATION Follow C/S and adjust Abx Continue Rocephin Stop Vanco Monitor progress Monitor for recurrent urinary retention If stable, possible switch to oral Abx Spoke with D/W Dr Sarina Gilman,Georgette Jon MD Aug 01, 2016 16:02
[2016-08-01] MEDS ORDERED: ATORVASTATIN 20 MG TAB PO SCH (21:00)
[2016-08-01] MEDS ORDERED: PHARMACY ORDERED LAB ONE (22:45)
[2016-08-02] VITALS (8 sets, daily range): BP systolic 147–196; BP diastolic 62–105; PULSE 62–121; RESP 18–20; TEMP 97.2–97.8; O2SAT 92–95
[2016-08-02] MEDS: CHLORHEXIDINE GLUCONATE 2 % 1 PACK (2 CLOTHS) TOP SCH (03:55)
[2016-08-02] MEDS: RESP: ALBUTEROL 2.5 MG/IPRATROPIUM 0.5 MG NEB (SCH) INH ×3 (04:00→16:39)
[2016-08-02] MEDS: LEVOTHYROXINE SODIUM 75 MCG TAB PO SCH (05:13)
[2016-08-02 06:25] LABS: BICARBONATE 25.6 MEQ/L (21.0-32.0); MAGNESIUM 1.6 MG/DL (1.5-2.5); POTASSIUM 3.1 MEQ/L (3.5-5.1)
[2016-08-02] MEDS: SODIUM CHLORIDE 0.9% FLUSH 10 ML FLUSH IVF SCH (09:00)
[2016-08-02] MEDS: MUPIROCIN 2% OINT 22 GM TUBE TOPICAL SCH (09:00)
[2016-08-02] MEDS: DOCUSATE SODIUM 50 MG/SENNA 8.6 MG TAB PO SCH (09:00)
--- NOTE | 2016-08-02 09:49 | HHI.PR ---
Subjective Remarks Follow-up sepsis, UTI and urinary retention. Hubbard catheter replaced early this morning secondary to urinary retention of almost a liter. Discussed with RN and ID, stable for discharge antibiotic switch to by mouth. Discussed with . Patient is awake and confused which is her baseline. Objective Vitals Vital Signs Date Time Temp Pulse Resp B/P Pulse Ox O2 Delivery O2 Flow Rate FiO2 08/02/16 08:00 97.8 75 20 196/84 95 08/02/16 04:00 97.2 62 20 173/62 95 08/02/16 00:00 97.6 92 20 160/86 93 08/01/16 20:00 98.2 76 20 169/93 93 08/01/16 20:00 77 08/01/16 16:00 97.9 86 16 158/74 94 08/01/16 12:00 97.9 83 17 172/90 93 168/98 150/98 I/O 08/01/16 08/01/16 08/01/16 08/02/16 08/02/16 08/02/16 06:59 14:59 22:59 06:59 14:59 22:59 Intake Total 370 ml 120 ml 120 ml 0 ml 120 ml Output Total 500 ml 1125 ml 1750 ml Balance -130 ml -1005 ml 120 ml -1750 ml 120 ml Intake Oral 120 ml 120 ml 120 ml 0 ml 120 ml IV Total 250 ml 0 ml 0 ml Output Urine Total 500 ml 1125 ml 1750 ml Bladder Scan Volume Amount 211 ml 999 ml # Voids 2 # Bowel Movements 0 1 1 Result Diagram: 08/01/16 0500 08/02/16 0430 Imaging Last Impressions Abdomen/Pelvis CT 07/29/16 0000 Signed Impressions: Service Date/Time: Friday, July 29, 2016 12:21 - CONCLUSION: 1. Mild amount of ascites seen around the liver, right pericolic gutter region and the perineal cavity. 2. Stable subcentimeter hepatic lesion representing a cyst or hemangioma. 3. Right renal cyst. The kidneys appear otherwise normal bilaterally. 4. Hubbard catheter in the bladder. 5. Large amount of stool seen in the rectum. There are diverticula seen in the sigmoid region. Significant surrounding inflammatory change is not seen. 6. Mild to moderate bilateral pleural effusions. Sanchez Whitt MD Chest X-Ray 07/28/16 1249 Signed Impressions: Service Date/Time: Thursday, July 28, 2016 13:01 - CONCLUSION: 1. Left central line in superior vena cava. No pneumothorax. Luis Joya MD Head CT 07/28/16 0000 Signed Impressions: Service Date/Time: Thursday, July 28, 2016 10:03 - CONCLUSION: 1. Chronic white matter ischemic changes with cortical atrophy. 2. Calcified meningioma right and left middle cranial fossa as above without significant mass effect. Luis Joya MD Objective Remarks GENERAL: Well-developed, well-nourished in no distress SKIN: Warm and dry. HEAD: Atraumatic. Normocephalic. EYES: Pupils equal and round. No scleral icterus. No injection or drainage. ENT: No nasal bleeding or discharge. Mucous membranes pink and moist. NECK: Trachea midline. No JVD. Central line in left IJ CARDIOVASCULAR: Regular rate and rhythm. RESPIRATORY: No accessory muscle use. Clear to auscultation. Breath sounds equal bilaterally. GASTROINTESTINAL: Abdomen soft, non-tender, nondistended. MUSCULOSKELETAL: Extremities without clubbing, cyanosis but with bilateral lower extremity pitting edema. No obvious deformities. NEUROLOGICAL: Awake and alert. Confused No obvious cranial nerve deficits. Motor grossly within normal limits. Five out of 5 muscle strength in the arms and legs. Normal speech. Procedures central line placement A/P Problem List: (1) Bipolar disorder ICD Code: F31.9 Status: Chronic (2) Septic shock ICD Code: A41.9 Status: Acute (3) UTI (urinary tract infection) ICD Code: N39.0 Status: Acute (4) Migraine headache ICD Code: G43.909 Status: Chronic (5) Vitamin D deficiency ICD Code: E55.9 Status: Chronic (6) History of hypertension ICD Code: Z86.79 Status: Chronic (7) Dyslipidemia ICD Code: E78.5 Status: Chronic (8) Meningioma ICD Code: D32.9 Status: Acute (9) Hypothyroidism ICD Code: E03.9 Status: Acute (10) Chronic prescription benzodiazepine use ICD Code: Z79.899 Status: Chronic (11) Parkinsons disease ICD Code: G20 Status: Chronic (12) Bipolar 1 disorder ICD Code: F31.9 Status: Chronic (13) Severe sepsis with acute organ dysfunction ICD Code: A41.9 Status: Acute (14) Leukocytosis ICD Code: D72.829 Status: Acute (15) Acute kidney injury (nontraumatic) ICD Code: N17.9 Status: Acute (16) Altered mental status ICD Code: R41.82 Status: Acute (17) Dementia ICD Code: F03.90 Status: Chronic (18) Lactic acidosis ICD Code: E87.2 Status: Resolved Assessment and Plan Septic shock due to UTI- resolved blood cultures from 07/28 with e-coli and gram-positive cocci. Repeat blood cultures on the and negative to date. GPC likely contamination UCx with e-coli IV abx Rocephin switched to Augmentin. IV vancomycin discontinued by ID. will taper off Solucortef to 25 mg every 12 hours and start prednisone tomorrow Urinary retention. Hubbard catheter reinserted. Hubbard care. History of hypertension now with mild orthostasis vasotec prn for now if standing BP over 180/100. Improving. 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 Status post cardiology evaluation recommended no intervention Bipolar Dementia disorder Parkinson's disease EEG showed ? seizure activity . Patient is on Lamictal. Neuro is following- Dr. Nelson. Becki d/c by neuro. On Namenda for underlying dementia. Psych is following. CT brain: Meningiomas are stable in size without mass effect or hemorrhage MRI/ CT in 6 months per neurology. acute kidney injury- resolved. Patient has hypokalemia. We will replace with 50 mEq by mouth 1 and repeat BMP and magnesium in the morning Hypothyroidism Continue Levoxyl at 75 mics grams by mouth daily. TSH:1.88 Anemia monitor H/H. Constipation . Continue bowel regimen Prophylaxis - GI - Protonix - DVT - SCD/pharmacological prophylaxis contraindicated in light of meningiomas Discharge Planning Ready for discharge Problem Qualifiers (1) Bipolar disorder: Qualified Code: F31.9 - Bipolar affective disorder, remission status unspecified (2) UTI (urinary tract infection): Qualified Code: N39.0 - Urinary tract infection without hematuria, site unspecified (3) Migraine headache: Qualified Code: G43.909 - Migraine without status migrainosus, not intractable , unspecified migraine type (4) Leukocytosis: Qualified Code: D72.829 - Leukocytosis, unspecified type (5) Altered mental status: Qualified Code: R40.1 - Stupor (6) Dementia: Qualified Code: G30.9 - Alzheimer's dementia without behavioral disturbance, unspecified timing of dementia onset Sterling Branch MD Aug 02, 2016 09:49
[2016-08-02] MEDS ORDERED: POTASSIUM CHLORIDE 25 MEQ EFFERVESCENT TAB PO ONE (10:00)
[2016-08-02] MEDS: lamoTRIgine 100 MG TAB PO SCH (10:12)
[2016-08-02] MEDS: HYDROCORTISONE SOD SUCCINATE 100 MG VIAL IV PUSH SCH (10:12)
[2016-08-02] MEDS: MEMANTINE HCL 10 MG TAB PO SCH (10:12)
[2016-08-02] MEDS: SODIUM CHLORIDE 0.9% FLUSH 10 ML FLUSH IV FLUSH SCH (10:13)
[2016-08-02] MEDS: ARTIFICIAL TEARS OPTH SOLN 15 ML BTL EACH EYE SCH ×2 (10:13→12:33)
--- NOTE | 2016-08-02 10:52 | HHI.IDPN ---
Subjective Subjective Remarks Notes reviewed Temps ok Garcia reinserted due to urinary retention Urine looks clear in garcia No new (+) BC CT A/P no hydro, has angelina effusions, and some ascites BC with E coli UC with E coli No new (+) BC with E coli WBC improving Antibiotics Rocephin Past Medical History Hypertension Dyslipidemia Parkinson's disease Hypothyroidism Bipolar disorder Dementia disorder Vitamin D deficiency Migraine headache Chronic benzodiazepine use Osteoporosis/osteoarthritis Constipation Past Surgical History Hysterectomy Allergies: Coded Allergies: Sulfa (Unverified Allergy, Unknown, redness and swelling, 06/16/16) Lisinopril (Verified Adverse Reaction, Severe, Cough, 08/01/16) Objective . Vital Signs Date Time Temp Pulse Resp B/P Pulse Ox O2 Delivery O2 Flow Rate FiO2 08/02/16 10:27 92 08/02/16 10:01 121 181/105 Manual Cuff/Palpation 08/02/16 10:00 82 165/76 Manual Cuff/Palpation 08/02/16 08:00 97.8 75 20 196/84 95 08/02/16 04:00 97.2 62 20 173/62 95 08/02/16 00:00 97.6 92 20 160/86 93 08/01/16 20:00 98.2 76 20 169/93 93 08/01/16 20:00 77 08/01/16 16:00 97.9 86 16 158/74 94 08/01/16 12:00 97.9 83 17 172/90 93 168/98 150/98 08/01/16 08/01/16 08/02/16 15:00 23:00 07:00 Intake Total 120 ml 120 ml 0 ml Output Total 1125 ml 1750 ml Balance -1005 ml 120 ml -1750 ml Intake Oral 120 ml 120 ml 0 ml IV Total 0 ml 0 ml Output Urine Total 1125 ml 1750 ml Bladder Scan Volume Amount 211 ml 999 ml # Voids 2 # Bowel Movements 1 1 . Laboratory Tests Test 08/01/16 05:00 White Blood Count 13.4 TH/MM3 Red Blood Count 3.90 MIL/MM3 Hemoglobin 11.3 GM/DL Hematocrit 33.9 % Mean Corpuscular Volume 86.9 FL Mean Corpuscular Hemoglobin 29.0 PG Mean Corpuscular Hemoglobin 33.4 % Concent Red Cell Distribution Width 13.3 % Platelet Count 189 TH/MM3 Mean Platelet Volume 8.8 FL Neutrophils (%) (Auto) 85.9 % Lymphocytes (%) (Auto) 9.4 % Monocytes (%) (Auto) 4.3 % Eosinophils (%) (Auto) 0.3 % Basophils (%) (Auto) 0.1 % Neutrophils # (Auto) 11.5 TH/MM3 Lymphocytes # (Auto) 1.3 TH/MM3 Monocytes # (Auto) 0.6 TH/MM3 Eosinophils # (Auto) 0.0 TH/MM3 Basophils # (Auto) 0.0 TH/MM3 CBC Comment AUTO DIFF Differential Comment AUTO DIFF CONFIRMED Platelet Estimate NORMAL Platelet Morphology Comment ENLARGED Laboratory Tests Test 08/01/16 08/02/16 04:44 04:30 Sodium Level 143 MEQ/L 146 MEQ/L Potassium Level 3.4 MEQ/L 3.1 MEQ/L Chloride Level 112 MEQ/L 110 MEQ/L Carbon Dioxide Level 22.7 MEQ/L 25.6 MEQ/L Anion Gap 8 MEQ/L 10 MEQ/L Blood Urea Nitrogen 15 MG/DL 9 MG/DL Creatinine 0.59 MG/DL 0.64 MG/DL Estimat Glomerular Filtration 101 ML/MIN 92 ML/MIN Rate Random Glucose 130 MG/DL 86 MG/DL Calcium Level 7.8 MG/DL 8.0 MG/DL Magnesium Level 1.8 MG/DL 1.6 MG/DL Imaging Last 72 hours Impressions Abdomen/Pelvis CT 07/29/16 0000 Signed Impressions: Service Date/Time: Friday, July 29, 2016 12:21 - CONCLUSION: 1. Mild amount of ascites seen around the liver, right pericolic gutter region and the perineal cavity. 2. Stable subcentimeter hepatic lesion representing a cyst or hemangioma. 3. Right renal cyst. The kidneys appear otherwise normal bilaterally. 4. Garcia catheter in the bladder. 5. Large amount of stool seen in the rectum. There are diverticula seen in the sigmoid region. Significant surrounding inflammatory change is not seen. 6. Mild to moderate bilateral pleural effusions. Sanchez Whitt MD Chest X-Ray 07/28/16 1249 Signed Impressions: Service Date/Time: Thursday, July 28, 2016 13:01 - CONCLUSION: 1. Left central line in superior vena cava. No pneumothorax. Luis Joya MD Chest X-Ray 07/28/16 0961 Signed Impressions: Service Date/Time: Thursday, July 28, 2016 10:15 - CONCLUSION: No acute disease. No significant change has occurred. Luis Joya MD Head CT 07/28/16 0000 Signed Impressions: Service Date/Time: Thursday, July 28, 2016 10:03 - CONCLUSION: 1. Chronic white matter ischemic changes with cortical atrophy. 2. Calcified meningioma right and left middle cranial fossa as above without significant mass effect. Luis Joya MD Physical Exam GENERAL: awake, focusing, tracking, not consistent in following commands. Not in respiratory distress. SKIN: Warm and dry. No generalized rash HEAD: Atraumatic. Normocephalic. No temporal wasting, or tenderness. EYES: [place] conjunctiva. No petechia or hemorrhage. Pupils equal, round and reactive to light. No scleral icterus. No injection or drainage. EARS, NOSE AND THROAT: Nose without bleeding or purulent nasal discharge. No sinus tenderness. NECK: Trachea midline. Supple and not tender, no meningeal signs CARDIOVASCULAR: Regular rate and rhythm. No murmurs, rubs or gallops heard RESPIRATORY: Clear to auscultation. Breath sounds equal bilaterally. No rales , wheezing or rhonchi ABDOMEN: Flat, soft, nondistended, not tender. Bowel sounds present and normoactive. EXTREMITIES: No clubbing, cyanosis, or edema.No joint effusion, has good ROM. No calf tenderness. Well perfused and warm. NEUROLOGICAL: Awake and alert. No Babinski PSYCHIATRIC: Flat affect, following some commands LINE: No evidence of infection : Garcia with clear urine Assessment & Plan Remarks IMPRESSION Sepsis, E coli, due to source, with shock - better - had urinary retention on admission - ?problem with emptying of bladder - no obstruction on CT Has one (+) BC with GPC, prob contaminant - no new (+) BC Leukocytosis, improving Hx Bipolar disorder Hx dementia Renal insufficiency due to retention, resolved Recurrent urinary retention RECOMMENDATION Change to oral Augmentin Complete urosepsis Rx with oral Abx Augmentin 500 TID x 10 days She seems clinically stable from ID standpoint I will be available prn Please reconsult if with any new ID issue or question Georgette Gilman MD Aug 02, 2016 10:52
[2016-08-02] MEDS: cefTRIAXone INJ 2,000 MG in SODIUM CHLORIDE 0.9% INJ 100 ML IV SCH (12:33)
[2016-08-02] MEDS ORDERED: AMOXICILLIN/CLAVUL SUSP 250 MG/5 ML 100 ML BTL PO SCH (14:00)
[2016-08-02] MEDS ORDERED: AMOX250S22 PO (14:12)
[2016-08-02] MEDS ORDERED: ALBU0.08 INH (14:12)
[2016-08-02] MEDS ORDERED: IPRASOL INH (14:12)
[2016-08-02] MEDS ORDERED: PRED10 PO (14:12)
--- NOTE | 2016-08-02 14:13 | HHI.DCPOC ---
Discharge Care Plan Diagnosis: (1) Septic shock (2) UTI (urinary tract infection) Your Health Problems Are: Difficulty with ADL Exercise Tolerance Goals to Promote Your Health * To prevent worsening of your condition and complications * To maintain your health at the optimal level Directions to Meet Your Goals Take your medications as prescribed Follow your dietary instruction Follow activity as directed Keep your appointments as scheduled Take your immunizations and boosters as scheduled If your symptoms worsen call your PCP, if no PCP go to Urgent Care Center or Emergency Room Smoking is Dangerous to Your Health. Avoid second hand smoke Call the 24-hour hour crisis hotline for domestic abuse at Sterling Branch MD Aug 02, 2016 14:13
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
[2016-08-03] MEDS ORDERED: predniSONE 10 MG TAB PO SCH (09:00)
== END 2016-08-02 18:27 | DRG 871 ==
LOC: NEPE 09:24 → NEDH 11:42 → HIMN 12:10 → N07A 07-31 21:50
PROVIDERS: ADMIT Internal Medicine; ATTEND Internal Medicine
PROC: 02HV33Z Insertion of Infusion Device into Superior Vena Cava, Percutaneous Approach (ICD-10-PCS; principal; 2016-07-28)
DX: A41.51 Sepsis due to Escherichia coli [E. coli] (principal); R65.21 Severe sepsis with septic shock; G93.41 Metabolic encephalopathy; N17.9 Acute kidney failure, unspecified; I51.1 Rupture of chordae tendineae, not elsewhere classified; E87.2 Acidosis; N39.0 Urinary tract infection, site not specified; F31.9 Bipolar disorder, unspecified; G43.909 Migraine, unspecified, not intractable, without status migrainosus; E55.9 Vitamin D deficiency, unspecified; I10 Essential (primary) hypertension; E78.5 Hyperlipidemia, unspecified; E03.9 Hypothyroidism, unspecified; G20 Parkinson's disease; F03.90 Unspecified dementia, unspecified severity, without behavioral disturbance, psychotic disturbance, mood disturbance, and anxiety; R33.9 Retention of urine, unspecified; E87.6 Hypokalemia; D64.9 Anemia, unspecified; K59.00 Constipation, unspecified; M81.0 Age-related osteoporosis without current pathological fracture; M19.90 Unspecified osteoarthritis, unspecified site; Z87.891 Personal history of nicotine dependence
CPT/HCPCS: 36556; 36600; 70450; 71010; 74177; 76937; 80048; 80053; 80202; 81001; 82140; 82550; 82552; 82570; 82805; 82948; 83605; 83735; 84100; 84132; 84155; 84300; 84443; 84484; 85007; 85025; 85027; 85384; 85610; 85730; 87040; 87077; 87086; 87149; 87185; 87186; 87205; 87641; 93005; 93306; 94640; 94664; 95819; 96374; 96375; C9113; J0610; J0696; J1720; J2270; J2543; J3370; J3475; J3480; J7030; J7050; J7070; Q9967

== ENCOUNTER 2016-09-04 16:23 | Emergency (ER) | payer MEDICARE, OTHER ==
[~2016-09-04] VITALS: Ht 162.6 cm; Wt 50.0 kg
[~2016-09-04 16:23] MED LIST changes: +ALBU0.08 INH; +AMOX250S22 PO; +IPRASOL INH; +PRED10 PO
[2016-09-04 17:54] VITALS: BP 154/91; PULSE 85; RESP 16; TEMP 99.4; O2SAT 97
[2016-09-04 18:00] VITALS: BP 154/91; PULSE 85; RESP 16; TEMP 99.4; O2SAT 97
[2016-09-04 18:21] VITALS: BP 156/89; PULSE 86; RESP 20; TEMP 99.4; O2SAT 97
[2016-09-04] MEDS ORDERED: IBUP200T2 PO (18:23)
--- NOTE | 2016-09-04 18:24 | PD ---
HPI Chief Complaint: Medical Clearance Time Seen by Provider: 17:45 Travel History International Travel<30 days: No Contact w/Intl Traveler<30days: No History of Present Illness HPI Patient is a 66-year-old female sent to the emergency department from [facility] for evaluation of left jugular distention. Patient is nonverbal, non-ambulatory. She has a history of dementia, bipolar disorder. Report obtained from EMS. [facility] Past Medical History Alzheimer's Disease: Yes Arthritis: Yes Bipolar Disorder: Yes Anxiety: Yes Depression: Yes Heart Rhythm Problems: No Cancer: No Cardiovascular Problems: Yes High Cholesterol: Yes Congestive Heart Failure: No Cerebrovascular Accident: No Dementia: Yes Diabetes: No Diminished Hearing: No GERD: Yes Genitourinary: No Headaches: No Hiatal Hernia: No Hypertension: Yes Musculoskeletal: Yes (left arm contracture) Reproductive: No Respiratory: No Migraines: Yes Seizures: No Thyroid Disease: Yes Ulcer: No Menopausal: Yes Tubal Ligation: Yes Social History Alcohol Use: Yes (wine wtih dinner) Tobacco Use: No Substance Use: No Allergies-Medications (Allergen,Severity, Reaction): Coded Allergies: Sulfa (Unverified Allergy, Unknown, redness and swelling, 09/04/16) Lisinopril (Verified Adverse Reaction, Severe, Cough, 09/04/16) Reported Meds & Prescriptions Reported Meds & Active Scripts Active Prednisone 10 Mg Tab 10 Mg PO DAILY Duoneb (Ipratropium-Albuterol Neb) 0.5-2.5 Mg/3 Ml Neb 1 Ampule INH Q6HR NEB Amoxicillin-Clavulanate Liq 250-62.5 Mg/5 Ml Susp 500 Mg PO Q8HR Albuterol Neb (Albuterol Sulfate) 2.5 Mg/3 Ml Neb 2.5 Mg INH Q2HR NEB PRN Macrobid (Nitrofurantoin Monoh/Nitrofur Macro) 100 Mg Cap 100 Mg PO BIDPC Mupirocin Topical (Mupirocin) 2 % Oint 1 Applic TOPICAL BID Namenda (Memantine) 10 Mg Tab 10 Mg PO BID Lisinopril 10 Mg Tab 10 Mg PO DAILY Synthroid (Levothyroxine Sodium) 75 Mcg Tab 75 Mcg PO DAILY@0600 Lamictal (Lamotrigine) 100 Mg Tab 200 Mg PO 2 BID Acidophilus/l-Sporogenes (Lactobacillus Acidophilus) 1 Tab Tab 1 Tab PO DAILY Hydrochlorothiazide 25 Mg Tab 25 Mg PO DAILY Dok (Docusate Sodium) 100 Mg Cap 100 Mg PO BID Vitamin B-12 (Cyanocobalamin) 1,000 Mcg Tab 1,500 Mcg PO 1-1/2 DAILY Vitamin D3 (Cholecalciferol) 1,000 Unit Tab 1,000 Units PO DAILY Carbidopa-Levodopa 25-100 Mg Tab 1 Tab PO Q8HR Wellbutrin SR 12 HR (Bupropion HCl) 150 Mg Tab 300 Mg PO 2 AM Atorvastatin (Atorvastatin Calcium) 20 Mg Tab 20 Mg PO HS Ativan (Lorazepam) 0.5 Mg Tab 0.5 Mg PO Q4H PRN Bactroban Topical (Mupirocin) 2% Oint 1 Appl TOPICAL BID 14 Days Reported Nuedexta 20-10 mg (Dextromethorphan HBr-Quinidine) 1 Cap Cap 1 Cap PO BID Relpax (Eletriptan) 40 Mg Tab 40 Mg PO ONCE PRN Meloxicam 15 Mg Tab 15 Mg PO DAILY PRN Sumatriptan (Sumatriptan Succinate) 100 Mg Tab 100 Mg PO ONCE PRN If a satisfactory response has not been obtained at 2 hours, a second dose may be administered Alendronate (Alendronate Sodium) 70 Mg Tab 70 Mg PO Q7D ON MONDAYS Review of Systems Except as stated in HPI: all other systems reviewed are Neg Cardiovascular: Positive: Other (left neck distention) Physical Exam Narrative GENERAL: Well-developed, well-nourished, well-appearing female. SKIN: Warm and dry. HEAD: Atraumatic. Normocephalic. EYES: Pupils equal and round. No scleral icterus. No injection or drainage. ENT: No nasal bleeding or discharge. Mucous membranes pink and moist. Airway is patent NECK: Trachea midline. No JVD. No erythema, no edema, no palpable masses identified. No meningeal signs. CARDIOVASCULAR: Regular rate and rhythm. RESPIRATORY: No accessory muscle use. Clear to auscultation. Breath sounds equal bilaterally. GASTROINTESTINAL: Abdomen soft, non-tender, nondistended. Hepatic and splenic margins not palpable. MUSCULOSKELETAL: Extremities without clubbing, cyanosis, or edema. No obvious deformities. GENITOURINARY:Urinary catheter with clear yellow urine NEUROLOGICAL: Awake and alert. Left arm contracture Nonverbal PSYCHIATRIC: Flat mood and affect; insight and judgment normal. Data Data Last Documented VS Vital Signs Date Time Temp Pulse Resp B/P Pulse Ox O2 Delivery O2 Flow Rate FiO2 09/04/16 18:00 99.4 85 16 154/91 97 Room Air MDM Medical Decision Making Medical Screen Exam Complete: Yes Emergency Medical Condition: Yes Medical Record Reviewed: Yes Interpretation(s) Vital Signs Date Time Temp Pulse Resp B/P Pulse Ox O2 Delivery O2 Flow Rate FiO2 09/04/16 18:00 99.4 85 16 154/91 97 Room Air 09/04/16 17:54 99.4 85 16 154/91 97 Differential Diagnosis Cellulitis versus abscess versus muscle strain versus JVD versus occlusion versus other Narrative Course Patient is a 66-year-old well-appearing female sent to emergency department for evaluation of left neck/jugular swelling. Discussed with the LEAD PRINCIPAL TECHNICAL ARCHITECT at the [facility] reasons why patient was sent to the emergency department and she stated that she noticed the left jugular was swollen and notified medical billing instructor who advised patient be sent to the emergency department. Per nurse patient is nonverbal, nonambulatory and a total assist. Patient has been afebrile at the [facility]. Pt was also seen and evaluated by my attending physician. No acute issues identified. Pt will be discharged back to [facility]. Pt to continue to follow with PCP. Return to ED with any new or worsening symptoms. Diagnosis Primary Impression: Neck complaint Referrals: Primary Care Physician 1 day Patient Instructions: General Instructions Additional Instructions: Return to Emergency Department for any new or worsening symptoms Follow up with primary doctor Continue home medications as previously prescribed Med/Other Pt SpecificInfo: No Change to Meds Disposition: 03 DISCHARGE TO SNF Condition: Stable Gabrielle Huffman Sep 04, 2016 18:24
[2016-09-04] MEDS ORDERED: BUPR150CR PO (18:35)
[2016-09-04] MEDS ORDERED: LAMO200T PO (18:35)
[2016-09-04] MEDS ORDERED: POLY17PO3 PO (18:35)
[2016-09-04] MEDS ORDERED: ENEMENE5 RECTAL (18:35)
[2016-09-04] MEDS ORDERED: MILKSUS PO (18:35)
[2016-09-04] MEDS ORDERED: TYLE325T PO (18:35)
[2016-09-04] MEDS ORDERED: SINE25TA2 PO (18:35)
[2016-09-04 19:14] VITALS: BP 148/86; PULSE 81; RESP 16; O2SAT 97
== END 2016-09-04 22:23 ==
LOC: NEPD 16:23
DX: R22.1 Localized swelling, mass and lump, neck (principal); F03.90 Unspecified dementia, unspecified severity, without behavioral disturbance, psychotic disturbance, mood disturbance, and anxiety; F31.9 Bipolar disorder, unspecified; G30.9 Alzheimer's disease, unspecified; F02.80 Dementia in other diseases classified elsewhere, unspecified severity, without behavioral disturbance, psychotic disturbance, mood disturbance, and anxiety; F41.9 Anxiety disorder, unspecified; I10 Essential (primary) hypertension; K21.9 Gastro-esophageal reflux disease without esophagitis; E78.00 Pure hypercholesterolemia, unspecified
CPT/HCPCS: 99283